=== PATIENT | female | born 1980 | race African-American/Black ===

== ENCOUNTER 2019-02-13 12:11 | Emergency (ER) | payer OTHER ==
[~2019-02-13] VITALS: Ht 177.8 cm; Wt 65.8 kg
--- OUTSIDE RECORDS SUMMARY | ~2019-02-13 | XMS | Encounter Summary ---
Demographics + + + | Address | [address] | | | [place] [address] | + + + | Home Phone | | + + + | Preferred Language | Unknown | + + + | Marital Status | | + + + | Jew Affiliation | Unknown | + + + | Race | White | + + + | Ethnic Group | Not or | + + + Author + + + | Author | [facility] | + + + | Organization | [facility] | + + + | Address | Unknown | + + + | Phone | Unavailable | + + + Support + + +---------+ + | Name | Relationship | Address | Phone | + + +---------+ + | Mick Brandon | ECON | Unknown | | + + +---------+ + Care Team Providers + +------+ + | Care Technical Proposal Writer Name | Role | Phone | + +------+ + | Xiomara Gloria | PCP | Unavailable | + +------+ + Encounter Details +--------+ + + + + | Date | Type | Department | Care Team | Description | +--------+ + + + + | 11/10/ | Document-Sc | Health Information | Unknown . | | | 2014 | anned | Services [address] | | | | | | [address] | | | | | | Road Mailcode: | | | | | | [address] | | | | | | [facility] | | | | | | [place], [place] | | | | | | [address] | | | | | | [phone] | | | +--------+ + + + + Social History + +-------+ +--------+------+ | Tobacco Use | Types | Packs/Day | Years | Date | | | | | Used | | + +-------+ +--------+------+ | Never Smoker | | | | | + +-------+ +--------+------+ + +---+---+---+ | Smokeless Tobacco: | | | | | Never Used | | | | + +---+---+---+ + + +---------+ + | Alcohol Use | Drinks/Week | oz/Week | Comments | + + +---------+ + | No | | | | + + +---------+ + + + + | Sex Assigned at | Date Recorded | | | | + + + | Not on file | | + + + + + + + | Job Start Date | Occupation | Industry | + + + + | Not on file | Not on file | Not on file | + + + + + + + + | Travel History | Travel Start | Travel End | + + + + + + | No recent travel history available. | + + documented as of this encounter Plan of Treatment Not on filedocumented as of this encounter Procedures + +--------+ + + + | Procedure Name | Priori | Date/Time | Associated Diagnosis | Comments | | | ty | | | | + +--------+ + + + | RADIOLOGY | | 11/10/2014 | | Results for this | | | | 12:00 AM | | procedure are in the | | | | PST | | results section. | + +--------+ + + + documented in this encounter Results RADIOLOGY (11/10/2014 12:00 AM PST) + + + | Narrative | Performed At | + + + | | | + + + documented in this encounter Visit Diagnoses Not on filedocumented in this encounter"
--- OUTSIDE RECORDS SUMMARY | ~2019-02-13 | XMS | Encounter Summary ---
Demographics + + + | Address | [address] | | | [place] [address] | + + + | Home Phone | | + + + | Preferred Language | Unknown | + + + | Marital Status | | + + + | Holiness Affiliation | Unknown | + + + | Race | White | + + + | Ethnic Group | Not or | + + + Author + + + | Author | [facility] | + + + | Organization | [facility] | + + + | Address | Unknown | + + + | Phone | Unavailable | + + + Support + + +---------+ + | Name | Relationship | Address | Phone | + + +---------+ + | Mick Brandon | ECON | Unknown | | + + +---------+ + Care Team Providers + +------+ + | Care Accounting System Expert Name | Role | Phone | + +------+ + | Gómez Chen MD | PCP | Unavailable | + +------+ + Encounter Details +--------+ + + + + | Date | Type | Department | Care Team | Description | +--------+ + + + + | 05/10/ | Document-Sc | UNKNOWN DEPARTMENT | Unknown . | | | 2011 | anned | [address] | | | | | | [facility] | | | | | | [place], [place] | | | | | | [address] | | | +--------+ + + + [...] + + + | RADIOLOGY | | 05/10/2012 | | Results for this | | | | 12:00 AM | | procedure are in the | | | | PDT | | results section. | + +--------+ + + + documented in this encounter Results RADIOLOGY (05/10/2012 12:00 AM PDT) + + + | Narrative | Performed At | + + + | | | + + + + + | Transcriptions | + + | Ameena Marion - 05/11/2012 1:38 PM PDT | + + documented in this encounter Visit Diagnoses Not on filedocumented in this encounter"
--- OUTSIDE RECORDS SUMMARY | ~2019-02-13 | XMS | Clinical Summary ---
Demographics + + + | Address | [address] | | | [place] [address] | + + + | Home Phone | | + + + | Preferred Language | Unknown | + + + | Marital Status | | + + + | Church Affiliation | Unknown | + + + | Race | Unknown | + + + | Ethnic Group | Unknown | + + + Author + + + | Author | [facility] | + + + | Organization | [facility] | + + + | Address | Unknown | + + + | Phone | Unavailable | + + + Support + + +---------+ + | Name | Relationship | Address | Phone | + + +---------+ + | Mick Yuan | ECON | Unknown | | + + +---------+ + Care Team Providers + +------+ + | Care Order Caller Name | Role | Phone | + +------+ + PP | Unavailable | + +------+ + Allergies + + + + + + | Active Allergy | Reactions | Severity | Noted | Comments | | | | | Date | | + + + + + + | Sulfamethoxazole-Tri | Hives, Rash | High | 10/12/19 | | | methoprim | | | 16 | | + + + + + + | Sulfa Antibiotics | Other (See Comments) | Medium | 10/12/19 | Unknown | | | | | 16 | | + + + + + + Current Medications + + +-------+---------+------+------+-------+ | Prescription | Sig. | Disp. | Refills | Star | End | Statu | | | | | | t | Date | s | | | | | | Date | | | + + +-------+---------+------+------+-------+ | | Take 1 tablet by | | | | | Activ | | fexofenadine-pseudoe | mouth 2 (two) times | | | | | e | | phedrine (AUSTIN-D) | daily. | | | | | | | 60-120 MG per | | | | | | | | tablet | | | | | | | + + +-------+---------+------+------+-------+ | budesonide | Take 3 mg by mouth | | | | | Activ | | (ENTOCORT EC) 3 MG | daily. | | | | | e | | 24 hr capsule | | | | | | | + + +-------+---------+------+------+-------+ | fluticasone | 1 spray by Each Nare | | | | | Activ | | (FLONASE) 50 MCG/ACT | route daily. | | | | | e | | nasal | | | | | | | + + +-------+---------+------+------+-------+ | multivitamin | Take 1 tablet by | | | | | Activ | | (AQUADEKS) chewable | mouth daily with | | | | | e | | tablet | breakfast. | | | | | | + + +-------+---------+------+------+-------+ | omeprazole | Take 20 mg by mouth | | | | | Activ | | (PRILOSEC) 20 MG | every morning before | | | | | e | | capsule | breakfast. | | | | | | + + +-------+---------+------+------+-------+ | Probiotic Product | Take by mouth | | | | | Activ | | (PROBIOTIC PO) | daily. | | | | | e | + + +-------+---------+------+------+-------+ Active Problems + + + | Problem | Noted Date | + + + | Acute lymphadenitis of lower limb | 10/16/2015 | + + + Family History + + + + + | Medical History | Relation | Name | Comments | + + + + + | Cancer | Maternal | | Melanoma of the skin | | | Grandmoth | | | | | er | | | + + + + + | Cancer | Mother | | | + + + + + | Cancer | Other | Maternal | | | | | Great | | | | | Grandmot | | | | | h | | + + + + + + + +--------+ + | Relation | Name | Status | Comments | + + +--------+ + | Maternal Grandmother | | | | + + +--------+ + | Mother | | | | + + +--------+ + | Other | Maternal | Alive | | | | Great | | | | | Grandmoth | | | + + +--------+ + Social History + +-------+ +--------+------+ | Tobacco Use | Types | Packs/Day | Years | Date | | | | | Used | | + +-------+ +--------+------+ | Never Smoker | | | | | + +-------+ +--------+------+ + + +---------+ + | Alcohol Use | Drinks/We | oz/Week | Comments | | | ek | | | + + +---------+ + | Yes | | | | + + +---------+ + + + + | Sex Assigned at | Date Recorded | | | | + + + | Not on file | | + + + Last Filed Vital Signs + + + + | Vital Sign | Reading | Time Taken | + + + + | Blood Pressure | 114/74 | 11/15/2015 3:31 PM PST | + + + + | Pulse | 69 | 11/15/2015 3:31 PM PST | + + + + | Temperature | 37.3 C (99.2 F) | 11/15/2015 3:31 PM PST | + + + + | Respiratory Rate | 16 | 11/15/2015 3:31 PM PST | + + + + | Oxygen Saturation | 100% | 11/15/2015 3:31 PM PST | + + + + | Inhaled Oxygen | - | - | | Concentration | | | + + + + | Weight | 67.9 kg (149 lb 9.6 | 11/15/2015 3:31 PM PST | | | oz) | | + + + + | Height | - | - | + + + + | Body Mass Index | - | - | + + + + Plan of Treatment + + + + + | Health Maintenance | Due Date | Last Done | Comments | + + + + + | Vaccine: | 03/12/ | | | | Dtap/Tdap/Td (1 - | 1 | | | | Tdap) | | | | + + + + + | Cervical Cancer | | | | | Screening (Pap) | 2 | | | + + + + + | Vaccine: Influenza | | | | | (Season Ended) | 9 | | | + + + + + Results Not on filefrom Last 3 Months Insurance + +--------+ +------+-------+---------+ | Payer | Benefi | Subscriber | Type | Phone | Address | | | t Plan | ID | | | | | | / | | | | | | | Group | | | | | + +--------+ +------+-------+---------+ | [employer] | ODS | [id number] | | | | | | HEALTH | | | | | | | PLAN | | | | | + +--------+ +------+-------+---------+ + +--------+ +--------+ + + | Guarantor Name | Accoun | Relation to | Date | Phone | Billing Address | | | t Type | Patient | of | | | | | | | | | | + +--------+ +--------+ + + | LATA YUAN | Person | 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
--- OUTSIDE RECORDS SUMMARY | ~2019-02-13 | XMS | Clinical Summary ---
Demographics + + + | Address | [address] | | | [place] [address] | + + + | Home Phone | | + + + | Preferred Language | Unknown | + + + | Marital Status | | + + + | Mandaeism Affiliation | Unknown | + + + [...] Team Providers + +------+ + | Care Stucco Mason Name | Role | Phone | + +------+ + | Xiomara lGoria | PP | Unavailable | + +------+ + Source Comments HUY is fully live on both [facility] and [facility] Allergies + + + + + + [...] | 04/22 | | Activ | | (JUAN NUNES,) 4 mg | directions. | Package | [...] recent travel history available. | + + Last Filed Vital Signs + [...] | + + + + + | Influenza (Flu) | | | | | vaccination (Season | 9 | | | | Ended) | | | | + + + + + Results Not on filefrom Last 3 Months Insurance +-------+--------+ +--------+ + +------+ | Payer | Benefi | Subscriber | Effect | Phone | Address | Type | | | t Plan | ID | carley | | | | | | / | | Dates | | | | | | Group | | | | | | +-------+--------+ +--------+ + +------+ | MODA | MODA | xxxxxxxxx | | [phone] | [address] | P[address] | | | [place] | | [phone] | | | | | | esent | | [place], | | | | | | | | [place] [address] | | +-------+--------+ +--------+ + +------+ + +--------+ +--------+ + + | Guarantor Name | Accoun | Relation to | Date | Phone | Billing Address | | | t Type | Patient | of | | | | | | | | | | + +--------+ +--------+ + + | Lata Brandon | Person | Self | [birth year] | [birth year] | | | al/Terry | | 1980 | [phone] | [place] [address] | | | ajmes | | | 4 (Home) | | + +--------+ +--------+ + +
--- OUTSIDE RECORDS SUMMARY | ~2019-02-13 | XMS | Encounter Summary ---
Demographics + + + | Address | [address] | | | [place] [address] | + + + | Home Phone | | + + + | Preferred Language | Unknown | + + + | Marital Status | | + + + | Scientology Affiliation | Unknown | + + + | Race | White | + + + | Ethnic Group | Not or | + + + Author + + + | Author | [facility] | + + + | Organization | [facility] | + + + | Address | Unknown | + + + | Phone | Unavailable | + + + Support + + +---------+ + | Name | Relationship | Address | Phone | + + +---------+ + | Mick Brandon | ECON | Unknown | | + + +---------+ + Care Team Providers + +------+ + | Care Blender Snuff Name | Role | Phone | + +------+ + | Xiomara Gloria | PCP | Unavailable | + +------+ + Encounter Details +--------+ + + + + | Date | Type | Department | Care Team | Description | +--------+ + + + + | 10/03/ | Document-Sc | Health Information | Unknown . | | | 2014 | anned | Services [address] | | | | | | [address] | | | | | | Road Mailcode: | | | | | | [address] | | | | | | [facility] | | | | | | [place], [place] | | | | | | [address] | | | | | | [phone] | | | +--------+ + + + [...] + + + | RADIOLOGY | | 10/03/2014 | | Results for this | | | | 12:00 AM | | procedure are in the | | | | PST | | results section. | + +--------+ + + + documented in this encounter Results RADIOLOGY (10/03/2014 12:00 AM PST) + + + | Narrative | Performed At | + + + | | | + + + documented in this encounter Visit Diagnoses Not on filedocumented in this encounter"
--- OUTSIDE RECORDS SUMMARY | ~2019-02-13 | XMS | Clinical Summary ---
Demographics + + + | Address | [address] | | | [place] [address] | + + + | Home Phone | | + + + | Preferred Language | Unknown | + + + | Marital Status | | + + + | Adventism Affiliation | Unknown | + + + [...] Team Providers + +------+ + | Care Multi Sensor Operator Name | Role | Phone | + +------+ + | Xiomara Gloria | PP | Unavailable | + +------+ + Source Comments HUY is fully live on both [facility] and [facility] Allergies + + + + + + [...] MODA | MODA | xxxxxxxxx | | [phone] | [address] | [address] | | | [place] | | [address] | [phone] | | | | | | esent | | [place], | | | | | | | | [place] [address] | | +-------+--------+ +--------+ + +------+ + [...] | 1980 | [phone] | [place] [address] | | | james | | | 4 (Home) | | + +--------+ +--------+ + +
--- OUTSIDE RECORDS SUMMARY | ~2019-02-13 | XMS | Encounter Summary ---
Demographics + + + | Address | [address] | | | [place] [address] | + + + | Home Phone | | + + + | Preferred Language | Unknown | + + + | Marital Status | | + + + | Samaritan Affiliation | Unknown | + + + | Race | White | + + + | Ethnic Group | Not or | + + + Author + + + | Author | [facility] | + + + | Organization | [facility] | + + + | Address | Unknown | + + + | Phone | Unavailable | + + + Support + + +---------+ + | Name | Relationship | Address | Phone | + + +---------+ + | Mick Brandon | ECON | Unknown | | + + +---------+ + Care Team Providers + +------+ + | Care Rn Procedure Name | Role | Phone | + +------+ + | Xiomara Gloria | PCP | Unavailable | + +------+ + Encounter Details +--------+ + + + + | Date | Type | Department | Care Team | Description | +--------+ + + + + | 01/26/ | Document-Sc | Health Information | Unknown . | | | 2007 | anned | Services [address] | | | | | | [address] | | | | | | Road Mailcode: | | | | | | [address] | | | | | | [facility] | | | | | | [place], [place] | | | | | | [address] | | | | | | [phone] | | | +--------+ + + + [...]
--- OUTSIDE RECORDS SUMMARY | ~2019-02-13 | XMS | Encounter Summary ---
Demographics + + + | Address | [address] | | | [place] [address] | + + + | Home Phone | | + + + | Preferred Language | Unknown | + + + | Marital Status | | + + + | Oriental Orthodox Affiliation | Unknown | + + + | Race | White | + + + | Ethnic Group | Not or | + + + Author + + + | Author | [facility] | + + + | Organization | [facility] | + + + | Address | Unknown | + + + | Phone | Unavailable | + + + Support + + +---------+ + | Name | Relationship | Address | Phone | + + +---------+ + | Mick Brandon | ECON | Unknown | | + + +---------+ + Care Team Providers + +------+ + | Care Classer Name | Role | Phone | + [...] Mailcode: | | | | | | [address] | | | | | | [facility] | | | | | | [place], [place] | | | | | | [address] | | | | | | [phone] | | | +--------+ + + + [...]
--- OUTSIDE RECORDS SUMMARY | ~2019-02-13 | XMS | Encounter Summary ---
Demographics + + + | Address | [address] | | | [place] [address] | + + + | Home Phone | | + + + | Preferred Language | Unknown | + + + | Marital Status | | + + + | Buddhist Affiliation | Unknown | + + + | Race | White | + + + | Ethnic Group | Not or | + + + Author + + + | Author | [facility] | + + + | Organization | [facility] | + + + | Address | Unknown | + + + | Phone | Unavailable | + + + Support + + +---------+ + | Name | Relationship | Address | Phone | + + +---------+ + | Mick Brandon | ECON | Unknown | | + + +---------+ + Care Team Providers + +------+ + | Care Stock Clerk Name | Role | Phone | + +------+ + | Xiomara Gloria | PCP | Unavailable | + +------+ + Reason for Visit + + + | Reason | Comments | + + + | Referral To | | | Gastroenterology | | + + + Encounter Details +--------+ + + + + | Date | Type | Department | Care Team | Description | +--------+ + + + + | 10/03/ | Abstract | Digestive Health | Clinic, | Referral To | | 2016 | | [facility] at [facility] [address] | Gastroenterology | Gastroenterology | | | | [place] | | | | | | Mailcode: [facility] | | [facility] | | | | | [facility], [address] | | | | | | [place], [place] | | | | | | [address] | | | | | | [phone] | | | +--------+ + + + [...] filedocumented as of this encounter Visit Diagnoses Not on filedocumented in this encounter"
--- OUTSIDE RECORDS SUMMARY | ~2019-02-13 | XMS | Encounter Summary ---
Demographics + + + | Address | [address] | | | [place] [address] | + + + | Home Phone | | + + + | Preferred Language | Unknown | + + + | Marital Status | | + + + | Jew Affiliation | Unknown | + + + | Race | White | + + + | Ethnic Group | Not or | + + + Author + + + | Author | [facility] | + + + | Organization | [facility] | + + + | Address | Unknown | + + + | Phone | Unavailable | + + + Support + + +---------+ + | Name | Relationship | Address | Phone | + + +---------+ + | Mick Brandon | ECON | Unknown | | + + +---------+ + Care Team Providers + +------+ + | Care Inspector Floor Sub Assembly Name | Role | Phone | + [...] | | | Sialolithias | Emilia | [address] | | | | | is | Health ENT | [facility] | | | | | | [address] [place], | | | | | | [address] | [place] | | | | | | [address], | [address] | | | | | | [place] [address] | Phone: | | | | | | Phone: | [phone] | | | | | | [phone] | Fax: | | | | | | Fax: | [phone] | | | | | | [phone] | | +--------+--------+ + + + + Encounter Details +--------+---------+ + + + | Date | Type | Department | Care Team | Description | +--------+---------+ + + + | 05/11/ | Office | Otolaryngology | Bebeto Hernandes, | Left facial swelling | | 2011 | Visit | Head and Neck | MD Vishal Rucker | (Primary Dx) | | | | Surgery Services at | [facility] | | | | | [address] | [place], [place] | | | | | [facility] | [address] | | | | | Mailcode: [address] | [phone] | | | | | [facility] | | | | | | [place], [place] | | | | | | [address] | | | | | | [phone] | | | +--------+---------+ + + + [...] when an episode exists, pt was miranda thayer script, if needed RTO PRN documented in this encounter Plan of Treatment Not on filedocumented as of this encounter Visit Diagnoses + + | Diagnosis | + + | Left facial swelling - Primary Swelling, mass, or lump in head and neck | + + documented in this encounter
--- OUTSIDE RECORDS SUMMARY | ~2019-02-13 | XMS ---
Demographics + + + | Address | [address] | | | [place] [address] | + + + | Preferred Language | Unknown | + + + | Marital Status | Unknown | + + + | Restorationist Affiliation | Unknown | + + + | Race | Unknown | + + + | Ethnic Group | Unknown | + + + Author + + + | Author | [facility] | + + + | Organization | [facility] | + + + | Address | [address] | | | [place] [address] | + + + | Phone | | + + + Care Team Providers + + + + | Care Instructional Assistant Name | Role | Phone | + + + + Unavailable | Unavailable | + + + + PROBLEMS + + + + + + + + | Type | Condition | ICD9-CM | [id number] | Onset | Condition | SNOMED | | | | Code | Code | Dates | Status | Code | + + + + + + + + | Problem | Lumbosacra | 724.4 | | | Active | [id number] | | | l neuritis | | | | | | | | NOS | | | | | | + + + + + + + + | Assessment | Myositis | | M60.9 | 11 January, | Active | [id number] | | | | | | 2016 | | | + + + + + + + + | Assessment | Occipital | R51 | | 11 January, | Active | [id number] | | | headache | | | 2016 | | | + + + + + + + + ALLERGIES + + + + +--------+ | Substance | Reaction | Event Type | Date | Status | + + + + +--------+ | Sulfa | Unknown | Drug Allergy | January, | Active | + + + + +--------+ SOCIAL HISTORY No smoking Hx information available PLAN OF CARE VITAL SIGNS + + + + | Height | 70 in | 2017-01-29 | + + + + | Weight | 157.6 lbs | 2017-01-29 | + + + + | BMI | 22.61 kg/m2 | 2017-01-29 | + + + + | Temperature | 98.6 degrees Fahrenheit | 2017-01-29 | + + + + | Heart Rate | 76 /min | 2017-01-29 | + + + + | Blood pressure systolic | 117 mm Hg | 2017-01-29 | + + + + | Blood pressure diastolic | 79 mm Hg | 2017-01-29 | + + + + MEDICATIONS + + + + + + + +--------+ | Medicati | Instruct | Dosage | Frequenc | Start | End Date | Duration | Status | | on | ions | | y | Date | | | | + + + + + + + +--------+ | Flexeril | Orally | 1 tablet | 8h | 11 January, | 08 February, | 10 days | Active | | 10 MG | Three | | | 2016 | 2016 | | | | | times a | | | | | | | | | day | | | | | | | + + + + + + + +--------+ | Tylenol/ | Orally | 1or 2 | | 11 January, | 18 January, | 1 week | Active | | Codeine | every 6 | tablet | | 2016 | 2016 | | | | #3 | hrsprn | as | | | | | | | 300-30 | pain | needed | | | | | | | MG | | | | | | | | + + + + + + + +--------+ | Mirena | | as | | | | | Active | | 20 | | directed | | | | | | | MCG/24HR | | | | | | | | + + + + + + + +--------+ | Sallie- | Orally | 1 tablet | 24h | | | | Active | | D 24 | Once a | | | | | | | | Hour | day | | | | | | | | 180-240 | | | | | | | | | MG | | | | | | | | + + + + + + + +--------+ | Omeprazo | Orally | 1 | 24h | | | | Active | | le 20 MG | Once a | capsule | | | | | | | | day | | | | | | | + + + + + + + +--------+ RESULTS No Results PROCEDURES + + + + + | Procedure | Date Ordered | Related Diagnosis | Body Site | + + + + + | Est Level III | January 29, 2017 | | | | Intermediate | | | | + + + + + IMMUNIZATIONS No Known Immunizations"
--- OUTSIDE RECORDS SUMMARY | ~2019-02-13 | XMS | Encounter Summary ---
Demographics + + + | Address | [address] | | | [place] [address] | + + + | Home Phone | | + + + | Preferred Language | Unknown | + + + | Marital Status | | + + + | Sabianism Affiliation | Unknown | + + + | Race | White | + + + | Ethnic Group | Not or | + + + Author + + + | Author | [facility] | + + + | Organization | [facility] | + + + | Address | Unknown | + + + | Phone | Unavailable | + + + Support + + +---------+ + | Name | Relationship | Address | Phone | + + +---------+ + | Mick Brandon | ECON | Unknown | | + + +---------+ + Care Team Providers + +------+ + | Care Student Support Advisor Name | Role | Phone | + +------+ + | Xiomara Gloria | PCP | Unavailable | + +------+ + Encounter Details +--------+ + + + + | Date | Type | Department | Care Team | Description | +--------+ + + + + | 02/28/ | Document-Sc | Health Information | Unknown . | | | 2014 | anned | Services [address] | | | | | | [address] | | | | | | Road Mailcode: | | | | | | [address] | | | | | | [facility] | | | | | | [place], [place] | | | | | | [address] | | | | | | [phone] | | | +--------+ + + + [...] + + + | RADIOLOGY | | 02/28/2015 | | Results for this | | | | 12:00 AM | | procedure are in the | | | | PDT | | results section. | + +--------+ + + + documented in this encounter Results RADIOLOGY (02/28/2015 12:00 AM PDT) + + + | Narrative | Performed At | + + + | | | + + + documented in this encounter Visit Diagnoses Not on filedocumented in this encounter"
--- OUTSIDE RECORDS SUMMARY | ~2019-02-13 | XMS | Clinical Summary ---
Demographics + + + | Address | [address] | | | [place] [address] | + + + | Home Phone | | + + + | Preferred Language | Unknown | + + + | Marital Status | | + + + | Orthodoxy Affiliation | Unknown | + + + | Race | Unknown | + + + | Ethnic Group | Unknown | + + + Author + + + | Author | [facility] | + + + | Organization | [facility] | + + + | Address | Unknown | + + + | Phone | Unavailable | + + + Support + + +---------+ + | Name | Relationship | Address | Phone | + + +---------+ + | Mick Yuan | ECON | Unknown | | + + +---------+ + Care Team Providers + +------+ + | Care Leaf Coverer Name | Role | Phone | + [...] | [employer] | ODS | [id number] | | | | | | HEALTH [...] | | al/Fam | | 1979 | [phone] | [place] | | | james | | | [address]: | [address] | | | | | | | | | | | | | [phone] | | | | | | | 9837 | | + +--------+ +--------+ + +"
--- OUTSIDE RECORDS SUMMARY | ~2019-02-13 | XMS | Encounter Summary ---
Demographics + + + | Address | [address] | | | [place] [address] | + + + | Home Phone | | + + + | Preferred Language | Unknown | + + + | Marital Status | | + + + | Zoroastrianism Affiliation | Unknown | + + + | Race | White | + + + | Ethnic Group | Not or | + + + Author + + + | Author | [facility] | + + + | Organization | [facility] | + + + | Address | Unknown | + + + | Phone | Unavailable | + + + Support + + +---------+ + | Name | Relationship | Address | Phone | + + +---------+ + | Mick Brandon | ECON | Unknown | | + + +---------+ + Care Team Providers + +------+ + | Care Independent Marketing Consultant Name | Role | Phone | + +------+ + | Xiomara Gloria | PCP | Unavailable | + +------+ + Encounter Details +--------+ + + + + | Date | Type | Department | Care Team | Description | +--------+ + + + + | 09/29/ | Document-Sc | Health Information | Unknown . | | | 2015 | anned | Services [address] | | | | | | [address] | | | | | | Road Mailcode: | | | | | | [address] | | | | | | [facility] | | | | | | [place], [place] | | | | | | [address] | | | | | | [phone] | | | +--------+ + + + [...] + + + | RADIOLOGY | | 09/29/2015 | | Results for this | | | | 12:00 AM | | procedure are in the | | | | PST | | results section. | + +--------+ + + + documented in this encounter Results RADIOLOGY (09/29/2015 12:00 AM PST) + + + | Narrative | Performed At | + + + | | | + + + documented in this encounter Visit Diagnoses Not on filedocumented in this encounter"
--- OUTSIDE RECORDS SUMMARY | ~2019-02-13 | XMS | Encounter Summary ---
Demographics + + + | Address | [address] | | | [place] [address] | + + + | Home Phone | | + + + | Preferred Language | Unknown | + + + | Marital Status | | + + + | Pentecostal Affiliation | Unknown | + + + | Race | White | + + + | Ethnic Group | Not or | + + + Author + + + | Author | [facility] | + + + | Organization | [facility] | + + + | Address | Unknown | + + + | Phone | Unavailable | + + + Support + + +---------+ + | Name | Relationship | Address | Phone | + + +---------+ + | Mick Brandon | ECON | Unknown | | + + +---------+ + Care Team Providers + +------+ + | Care Certified Legal Investigator Name | Role | Phone | + +------+ + | Gómez Chen MD | PCP | Unavailable | + +------+ + Reason for Visit +--------+ + | Reason | Comments | +--------+ + | Other | | +--------+ + Encounter Details +--------+ + + + + | Date | Type | Department | Care Team | Description | +--------+ + + + + | 09/29/ | Emergency | [facility] Emergency | | | | 2015 | | Department [address] | | | | | [address] | | | | | | [facility] | | | | | | [place] [address] | | | | | | [phone] | | | +--------+ + + + [...] + + documented as of this encounter Medications at Time of Discharge + + + +---------+ + + | Medication | Sig | Dispensed | Refills | Start | End Date | | | | | | Date | | + + + +---------+ + + | B INFANTIS/B ANI/B | Take by mouth. | | 0 | | | | ALBERTO/B BIFID | | | | | | | (PROBIOTIC 4X ORAL) | | | | | | + + + +---------+ + + | fexofenadine | Take 60 mg by mouth | | 0 | | | | (AUSTIN) 60 mg Oral | two times daily. | | | | | | Tablet | | | | | | + + + +---------+ + + | methylPREDNISolone | Follow package | 1 | 1 | 05/11/20 | | | (JUAN NUNES) 4 mg | directions. | Package | | 12 | | | Oral Tablets, Dose | | | | | | | Pack | | | | | | + + + +---------+ + + | PSEUDOEPHEDRINE | Take by mouth. | | 0 | | | | HCL (SUDAFED 12 HOUR | | | | | | | ORAL) | | | | | | + + + +---------+ + + documented as of this encounter Plan of Treatment Not on filedocumented as of this encounter Visit Diagnoses Not on filedocumented in this encounter"
--- OUTSIDE RECORDS SUMMARY | ~2019-02-13 | XMS | Encounter Summary ---
Demographics + + + | Address | [address] | | | [place] [address] | + + + | Home Phone | | + + + | Preferred Language | Unknown | + + + | Marital Status | | + + + | Pentecostalism Affiliation | Unknown | + + + | Race | White | + + + | Ethnic Group | Not or | + + + Author + + + | Author | [facility] | + + + | Organization | [facility] | + + + | Address | Unknown | + + + | Phone | Unavailable | + + + Support + + +---------+ + | Name | Relationship | Address | Phone | + + +---------+ + | Mick Brandon | ECON | Unknown | | + + +---------+ + Care Team Providers + +------+ + | Care Speeder Hand Name | Role | Phone | + [...] | | 2016 | | Center at [facility] [address] | Gastroenterology | Gastroenterology | | | | [place] | | | | | | Mailcode: [facility] | | | [facility] | | | | | [facility], [address] | | | | | | [place], [place] | | | | | | [address] | | | | | | [phone] | | | +--------+ + + + [...]
--- OUTSIDE RECORDS SUMMARY | ~2019-02-13 | XMS | Clinical Summary ---
Demographics + + + | Address | [address] | | | [place] [address] | + + + | Home Phone | | + + + | Preferred Language | Unknown | + + + | Marital Status | | + + + | Yarsani Affiliation | Unknown | + + + | Race | Unknown | + + + | Ethnic Group | Unknown | + + + Author + + + | Author | [facility] | | | and [place] | + + + | Organization | [facility] | | | and [place] | [...] Team Providers + +------+ + | Care Ski Top Trimmer Name | Role | Phone | + +------+ + | Xiomara Gloria PA-C | PP | | + +------+ + Allergies + + + + + + | Active Allergy | Reactions | Severity | Noted | Comments | | | | | Date | | + + + + + + | Sulfamethoxazole-Tri | Rash | Low | 11/01/19 | | | methoprim | | | 15 | | + + + + + [...] Noted Date | + + + | Dysphagia, unspecified(787.20) | 11/24/2014 | + + + + + | Overview: ICD-10 Record update | + + + + + | GERD (gastroesophageal reflux disease) | 11/24/2014 | + + + | Abdominal bloating | 11/24/2014 | + + + Family History + + +------+ + | Medical History | Relation | Name | Comments | + + +------+ + | Breast cancer | Maternal | | | | | Grandmoth | | | | | er | | | + + +------+ + | Multiple sclerosis | Mother | | | + + +------+ + + +------+--------+ + | Relation | Name | Status | Comments | + +------+--------+ + | Father | | Other | adopted | + +------+--------+ + | Maternal Grandmother | | | | + +------+--------+ + | Mother | | Alive | | + +------+--------+ + Social History + +-------+ +--------+------+ | [...] | | + + +---------+ + | No [...] | Blood Pressure | 110/70 | 12/11/2014 0902 PDT | + + + + | Pulse | 67 | 12/11/2014901 PDT | + + + + | Temperature | 36.9 C (98.4 F) | 12/11/2014901 PDT | + + + + | Respiratory Rate | 16 | 12/11/2014901 PDT | + + + + | Oxygen Saturation | 99% | 12/11/2014901 PDT | + + + + | Inhaled Oxygen | - | - | | Concentration | | | + + + + | Weight | 68.5 kg (151 lb) | 12/11/2014901 PDT | + + + + | Height | 177.8 cm (5' 10") | 11/27/2014737 PDT | + + + + | Body Mass Index | 21.67 | 11/27/2014737 PDT | + + + + Plan of [...] Results Not on filefrom Last 3 Months Advance Directives Patient has advance care planning documents on file. For more information, please contact:[facility] [place] [address]
--- OUTSIDE RECORDS SUMMARY | ~2019-02-13 | XMS | Encounter Summary ---
Demographics + + + | Address | [address] | | | [place] [address] | + + + | Home Phone | | + + + | Preferred Language | Unknown | + + + | Marital Status | | + + + | Episcopal Affiliation | Unknown | + + + | Race | White | + + + | Ethnic Group | Not or | + + + Author + + + | Author | [facility] | + + + | Organization | [facility] | + + + | Address | Unknown | + + + | Phone | Unavailable | + + + Support + + +---------+ + | Name | Relationship | Address | Phone | + + +---------+ + | Mick Brandon | ECON | Unknown | | + + +---------+ + Care Team Providers + +------+ + | Care Timber Buyer Name | Role | Phone | + [...] + + | 09/29/ | Emergency | [facility] Emergency | | | | 2015 | | Department [address] | | | | | [address] | | | | | | [facility] | | | | | | [place] [address] | | | | | | [phone] | | | +--------+ + + + [...]
--- OUTSIDE RECORDS SUMMARY | ~2019-02-13 | XMS | Encounter Summary ---
Demographics + + + | Address | [address] | | | [place] [address] | + + + | Home Phone | | + + + | Preferred Language | Unknown | + + + | Marital Status | | + + + | Taoism Affiliation | Unknown | + + + | Race | White | + + + | Ethnic Group | Not or | + + + Author + + + | Author | [facility] | + + + | Organization | [facility] | + + + | Address | Unknown | + + + | Phone | Unavailable | + + + Support + + +---------+ + | Name | Relationship | Address | Phone | + + +---------+ + | Mick Brandon | ECON | Unknown | | + + +---------+ + Care Team Providers + +------+ + | Care Panel Saw Operator Name | Role | Phone | [...] Mailcode: | | | | | | [address] | | | | | | [facility] | | | | | | [place], [place] | | | | | | [address] | | | | | | [phone] | | | +--------+ + + + [...]
--- OUTSIDE RECORDS SUMMARY | ~2019-02-13 | XMS | Encounter Summary ---
Demographics + + + | Address | [address] | | | [place] [address] | + + + | Home Phone | | + + + | Preferred Language | Unknown | + + + | Marital Status | | + + + | Nondenominational Affiliation | Unknown | + + + | Race | White | + + + | Ethnic Group | Not or | + + + Author + + + | Author | [facility] | + + + | Organization | [facility] | + + + | Address | Unknown | + + + | Phone | Unavailable | + + + Support + + +---------+ + | Name | Relationship | Address | Phone | + + +---------+ + | Mick Brandon | ECON | Unknown | | + + +---------+ + Care Team Providers + +------+ + | Care Chorus Dancer Name | Role | Phone | + +------+ + | Gómez Chen MD | PCP | Unavailable | + +------+ + Encounter Details +--------+ + + + + | Date | Type | Department | Care Team | Description | +--------+ + + + + | 05/10/ | Document-Sc | UNKNOWN DEPARTMENT | Unknown . | | | 2011 | anned | [address] | | | | | | [facility] | | | | | | [place], [place] | | | | | | [address] | | | +--------+ + + + [...]
--- OUTSIDE RECORDS SUMMARY | ~2019-02-13 | XMS | Clinical Summary ---
Demographics + + + | Address | [address] | | | [place] [address] | + + + | Home Phone | | + + + | Preferred Language | Unknown | + + + | Marital Status | | + + + | Worship Affiliation | Unknown | + + + | Race | Unknown | + + + | Ethnic Group | Unknown | + + + Author + + + | Author | [facility] | | | and [place] | + + + | Organization | [facility] | | | and [place] [...] Team Providers + +------+ + | Care Cement Sack Breaker Name | Role | Phone | + [...] documents on file. For more information, please contact:[facility] [place] [address]
--- OUTSIDE RECORDS SUMMARY | ~2019-02-13 | XMS | Encounter Summary ---
Demographics + + + | Address | [address] | | | [place] [address] | + + + | Home Phone [...] Team Providers + +------+ + | Care Credit Representative Name | Role | Phone | + [...] Mailcode: | | | | | | [address] | | | | | | [facility] | | | | | | [place], [place] | | | | | | [address] | | | | | | [phone] | | | +--------+ + + + [...]
--- OUTSIDE RECORDS SUMMARY | ~2019-02-13 | XMS ---
Demographics + + + | Address | [address] | | | [place] [address] | + + + | Preferred Language | Unknown | + + + | Marital Status | Unknown | + + + | Temple Affiliation | Unknown | + + + | Race | Unknown | + + + | Ethnic Group | Unknown | + + + Author + + + | Author | [facility] | + + + | Organization | [facility] | + + + | Address | 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 | | | l neuritis | | | | | | | | NOS | | | | | | +---------+ + + +--------+ + + ALLERGIES + + + + +--------+ | Substance | Reaction | Event Type | Date | Status | + + + + +--------+ | Sulfa | Unknown | Drug Allergy | Apr, | Active | + + + + +--------+ SOCIAL HISTORY Never Assessed PLAN OF CARE + +---------+ | Activity | Details | + +---------+ +---+ | | +---+ + + + | Follow Up | as scheduled with PCP Reason:null | + + + VITAL SIGNS + + + + | Height | 70 in | 2017-05-12 | + + + + | Weight | 149.8 lbs | 2017-05-12 | + + + + | BMI | 21.49 kg/m2 | 2017-05-12 | + + + + | Temperature | 98.8 degrees Fahrenheit | 2017-05-12 | + + + + | Heart Rate | 93 /min | 2017-05-12 | + + + + | Blood pressure systolic | 124 mm Hg | 2017-05-12 | + + + + | Blood pressure diastolic | 91 mm Hg | 2017-05-12 | + + + + MEDICATIONS + + + + +--------+ + +--------+ | Medicati | Instruct | Dosage | Frequenc | Start | End Date | Duration | Status | | on | ions | | y | Date | | | | + + + + +--------+ + +--------+ | Omeprazo | Orally | 1 | 24h | | | | Active | | le 20 MG | Once a | capsule | | | | | | | | day | | | | | | | + + + + +--------+ + +--------+ | Flonase | | | | | | | Active | + + + + +--------+ + +--------+ | Mirena | | as | | | | | Active | | 20 | | directed | | | | | | | MCG/24HR | | | | | | | | + + + + +--------+ + +--------+ | Sallie- | Orally | [...] | | | + + + + +--------+ + +--------+ RESULTS No Results PROCEDURES No Known procedures IMMUNIZATIONS No Known Immunizations MEDICAL (GENERAL) HISTORY + + +------+ | Type | Description | Date | + + +------+ | Medical History | Crohns disease | | + + +------+ | Medical History | seasonal allergies | | + + +------+ | Medical History | Abnormal PAP - 2005 | | + + +------+ | Medical History | reflux | | + + +------+ | Surgical History | laparoscopy with | 2002 | | | destruction of | | | | endometriosis | | + + +------+ | Surgical History | nasal surgery | 2009 | + + +------+ | Surgical History | cholecystectomy | 2010 | + + +------+ | Surgical History | lymph node resection (Left | 2014 | | | groin) with post-op | | | | infection | | + + +------+ | Hospitalization History | surgery | | + + +------+"
--- OUTSIDE RECORDS SUMMARY | ~2019-02-13 | XMS | Encounter Summary ---
Demographics + + + | Address | [address] | | | [place] [address] | + + + | Home Phone [...] + + | Author | [facility] | + + + | Organization | [facility] | + + + | Address | Unknown | + + + | Phone | Unavailable | + + + Support + + +---------+ + | Name | Relationship | Address | Phone | + + +---------+ + | Mick Brandon | ECON | Unknown | | + + +---------+ + Care Team Providers + +------+ + | Care Weaving Machine Operator Name | Role | Phone [...] | | | | | | [address] | | | | | | [facility] | | | | | | [place], [place] | | | | | | [address] | | | | | | [phone] | | | +--------+ + + + [...]
--- OUTSIDE RECORDS SUMMARY | ~2019-02-13 | XMS | Encounter Summary ---
Demographics + + + | Address | [address] | | | [place] [address] | + + + | Home Phone [...] Author | [facility] | + + + | Organization | [facility] | + + + | Address | Unknown | + + + | Phone | Unavailable | + + + Support + + +---------+ + | Name | Relationship | Address | Phone | + + +---------+ + | Mick Brandon | ECON | Unknown | | + + +---------+ + Care Team Providers + +------+ + | Care It Project Lead Name | Role | Phone | + [...] | | Sialolithias | Emilia | [address] | | | | | is | Health ENT | [facility] | | | | | | [address] [place], | | | | | | [address] | [place] | | | | | | [address] [place], | [address] | | | | | | [place] [address] | Phone: | | | | | | Phone: | [phone] | | | | | | [phone] | Fax: | | | | | | Fax: | [phone] | | | | | | [phone] | | +--------+--------+ + + + + [...] | | | Surgery Services at | [facility] | | | | | [address] | [place], [place] | | | | | [facility] | [address] | | | | | Mailcode: [address]01 | [phone] | | | | | [facility] | | | | | | [place], [place] | | | | | | [address] | | | | | | [phone] | | | +--------+---------+ + + + [...]
--- OUTSIDE RECORDS SUMMARY | ~2019-02-13 | XMS | Encounter Summary ---
Demographics + + + | Address | [address] | | | [place] [address] | + + + | Home Phone | | + + + | Preferred Language | Unknown | + + + | Marital Status | | + + + | Christianity Affiliation | Unknown | + + + | Race | White | + + + | Ethnic Group | Not or | + + + Author + + + | Author | [facility] | + + + | Organization | [facility] | + + + | Address | Unknown | + + + | Phone | Unavailable | + + + Support + + +---------+ + | Name | Relationship | Address | Phone | + + +---------+ + | Mick Brandon | ECON | Unknown | | + + +---------+ + Care Team Providers + +------+ + | Care Chemical Treatment Operator Name | Role | Phone | [...] Mailcode: | | | | | | [address] | | | | | | [facility] | | | | | | [place], [place] | | | | | | [address] | | | | | | [phone] | | | +--------+ + + + [...]
[~2019-02-13 12:11] MED LIST: ALLEGRA-D 12 HOU1 EA PO; BENTYL20 MG PO; BUDESONIDE EC3 MG PO; CARAFATE1 GM/10 ML PO; CLARITIN10 MG PO; CLINDAMYCIN HC300 MG PO; COLACE100 MG PO; DEXILANT60 MG PO; DULCOLAX5 MG; FLUTICASONE PRO16 GM NAS; KEFLEX500 MG PO; MONO-LINYAH1 EACH PO; MULTI-DAY VITA1 EACH PO; NORCO 5-325 TA1 EACH PO; ONE DAILY ESS400 MCG PO; PROBIOTIC1 EAC1 PO; SUDAFED 12-HOU120 MG PO; TRAZODONE HCL100 MG PO; UCERIS9 MG PO; ZOFRAN4 MG PO
[2019-02-13] MEDS ORDERED: TOPAMAX50 MG PO (12:43)
[2019-02-13] MEDS ORDERED: PROZAC10 MG PO (12:43)
[2019-02-13] MEDS ORDERED: FISH OIL 1,0001 EAC3 PO (12:43)
[2019-02-13] MEDS ORDERED: B-121000 MC2 PO (12:44)
[2019-02-13] MEDS ORDERED: PANTOPRAZOLE SO40 MG PO (16:37)
--- NOTE | 2019-02-15 19:12 | EKG ---
[facility] [address] [facility] [place], [place] [address] Signed Normal sinus rhythm Normal ECG No previous ECGs available Confirmed by SHABANA DIALLO MD ([id number]) on 02/15/2019 7:11:49 PM Electronically Signed By: SHABANA DIALLO MD 02/15/191911 PATIENT NAME: SOPHIA YUAN Electrocardiogram DATE OF : 84 PHYSICIAN: SHABANA DIALLO MD REPORT #: [id number] REPORT IS CONFIDENTIAL AND NOT TO BE RELEASED WITHOUT AUTHORIZATION
--- NOTE | 2019-02-15 19:12 | EKG ---
[facility] [address] [facility] [place] [address] Signed Normal sinus rhythm Nonspecific T wave abnormality Abnormal ECG Confirmed by SHABANA DIALLO MD ([id number]) on 02/15/2019 7:12:19 PM Electronically Signed By: SHABANA DIALLO MD 02/15/191911 PATIENT NAME: SOPHIA YUAN Electrocardiogram DATE OF : 84 PHYSICIAN: SHABANA DIALLO MD REPORT #: [id number] REPORT IS CONFIDENTIAL AND NOT TO BE RELEASED WITHOUT AUTHORIZATION
== END 2019-02-13 16:50 | disposition home or self-care (01) ==
LOC: ED 12:11
DX: R07.89 Other chest pain (principal); Z90.49 Acquired absence of other specified parts of digestive tract; Z88.2 Allergy status to sulfonamides; Z79.899 Other long term (current) drug therapy
CPT/HCPCS: 71045; 80053; 83735; 84484; 85025; 85379; 85610; 93005; 93010; 96374; 96375; 99285-25; J1885; J2060

== ENCOUNTER 2019-12-03 12:20 | Emergency (ER) | payer OTHER ==
[~2019-12-03] VITALS: Ht 177.8 cm; Wt 76.2 kg
[~2019-12-03 12:20] MED LIST changes: +B-121000 MC2 PO; +FISH OIL 1,0001 EAC3 PO; +PANTOPRAZOLE SO40 MG PO; +PROZAC10 MG PO; +TOPAMAX50 MG PO
[2019-12-03] MEDS ORDERED: HYDROXYZINE HCL25 MG PO (15:10)
--- NOTE | 2019-12-04 21:33 | EKG ---
[facility] [address] [facility] [place] [address] Signed Normal sinus rhythm Low voltage QRS Borderline ECG When compared with ECG of 13-FEB-2019 15:33, Nonspecific T wave abnormality, improved in Anterolateral leads Confirmed by FELIX YEN MD ([id number]) on 12/04/2019 9:33:32 PM Electronically Signed By: FELIX YEN MD 12/04/19 2133 PATIENT NAME: LISSYSOPHIA Electrocardiogram DATE OF : 84 PHYSICIAN: FELIX YEN MD REPORT #: [id number] REPORT IS CONFIDENTIAL AND NOT TO BE RELEASED WITHOUT AUTHORIZATION
== END 2019-12-03 15:30 | disposition home or self-care (01) ==
LOC: ED 12:20
DX: F41.9 Anxiety disorder, unspecified (principal); K21.9 Gastro-esophageal reflux disease without esophagitis; Z88.2 Allergy status to sulfonamides; Z79.899 Other long term (current) drug therapy
CPT/HCPCS: 71045; 80053; 84484; 85025; 85379; 93005; 93010; 99285-25

== ENCOUNTER 2020-05-13 10:29 | Emergency (ER) | payer OTHER ==
[~2020-05-13] VITALS: Ht 177.8 cm; Wt 76.2 kg
--- OUTSIDE RECORDS SUMMARY | ~2020-05-13 | XMS | Encounter Summary ---
Demographics + + + | Address | [address] | | | [place] [address] | + + + | Home Phone | | + + + | Preferred Language | Unknown | + + + | Marital Status | | + + + | Congregation Affiliation | Unknown | + + + | Race | Black or | + + + | Ethnic Group | Not or | + + + Author + + + | Author | [facility] | | | and [place] | + + + | Organization | [facility] | | | and [place] | + + + | Address | Unknown | + + + | Phone | Unavailable | + + + Care Team Providers + +------+ + | Care Oracle Soa Architect Name | Role | Phone | + +------+ + PCP | Unavailable | + +------+ + Encounter Details +--------+ + + + + | Date | Type | Department | Care Team | Description | +--------+ + + + + | 05/09/ | Hospital | [facility] | | | | 2008 - | Encounter | MED CTR MED ONC | | | | | | [address] | | | | 05/11/ | | [place] [address] | | | | 2008 | | [phone] | | | +--------+ + + + + Social History + +-------+ +--------+------+ | Tobacco Use | Types | Packs/Day | Years | Date | | | | | Used | | + +-------+ +--------+------+ | Never Assessed | | | | | + +-------+ +--------+------+ + + + | Sex Assigned at | Date Recorded | | | | + + + | Not on file | | + + + documented as of this encounter Plan of Treatment +--------+---------+ + + + | Date | Type | Specialty | Care Team | Description | +--------+---------+ + + + | 06/11/ | Office | Neurology | [place], | | | 2019 | Visit | | [address] | | [address] [place], | | | | | | [place] [address] | | | | | | [phone] | | | | | | | | +--------+---------+ + + + documented as of this encounter Visit Diagnoses Not on filedocumented in this encounter"
--- OUTSIDE RECORDS SUMMARY | ~2020-05-13 | XMS | Encounter Summary ---
Demographics + + + | Address | [address] | | | [place] [address] | + + + | Home Phone | | + + + | Preferred Language | Unknown | + + + | Marital Status | | + + + | Scientologist Affiliation | Unknown | + + + | Race | Black or | + + + | Ethnic Group | Not or | + + + Author + + + | Author | [facility] | | | and [place] | + + + | Organization | [facility] | | | and [place] | + + + | Address | Unknown | + + + | Phone | Unavailable | + + + Care Team Providers + +------+ + | Care Acquisitions Logistics Analyst Name | Role | Phone | + +------+ + | Xiomara Gloria PA-C | PCP | | + +------+ + Reason for Visit +--------+--------+ + | Reason | Onset | Comments | | | Date | | +--------+--------+ + | Other | 12/19/ | gastroparesis diet questions | | | 2014 | | +--------+--------+ + Encounter Details +--------+ + + + + | Date | Type | Department | Care Team | Description | +--------+ + + + + | 12/19/ | Telephone | [facility] | Sarika, | Other (gastroparesis | | 2014 | | GASTROENTEROLOGY | Dana, TOOL AND DIE ENGINEER [address] | diet questions) | | | | [address] | [address] | | | | | [address] [place], [place] | [place], [place] | | | | | [address] | [address] | | | | | [phone] | | | +--------+ + + + [...] + + documented as of this encounter Miscellaneous Notes Telephone Encounter - Monique Meyers RN - 12/19/2014 10:53 AM PDTSpoke with Lata. She s tates she is doing much better, still has some burping but not as bad as before starting gas troparesis diet. Patient wondering what next steps are. After reviewing Dana Baum's last office vis it I relayed recommendation and provided examples of step 3 part of diet. Patient voiced und erstanding and did not have further questions at this time. elephone Encounter - Sandrine Silveira - 12/19/2014 9:4 1 AM PDTPatient called and would like to speak to someone, she states she was put on a speci al diet and she would like information about what foods she can start adding in? Pt can be r eached at [phone]. doc umented in this encounter Plan of Treatment +--------+---------+ + + + | Date | Type | Specialty | Care Team | Description | +--------+---------+ + + + | 06/11/ | Office | Neurology | Miguelito, | | | 2019 | Visit | | MIRIAN Nino [address] [place], | | | | | | [place] [address] | | | | | | [phone] | | | | | | | | +--------+---------+ + + + documented as of this encounter Visit Diagnoses Not on filedocumented in this encounter"
--- OUTSIDE RECORDS SUMMARY | ~2020-05-13 | XMS | Encounter Summary ---
Demographics + + + | Address | [address] | | | [place] [address] | + + + | Home Phone | | + + + | Preferred Language | Unknown | + + + | Marital Status | | + + + | Zoroastrianism Affiliation | Unknown | + + + | Race | White | + + + | Ethnic Group | Not or | + + + Author + + + | Author | [facility] | + + + | Organization | [facility] | + + + | Address | Unknown | + + + | Phone | Unavailable | + + + Support + + +---------+ + | Name | Relationship | Address | Phone | + + +---------+ + | Mick Brandon | ECON | Unknown | | + + +---------+ + Care Team Providers + +------+ + | Care Community Support Professional Name | Role | Phone | + +------+ + | Gómez Chen MD | PCP | | + +------+ + Reason for Visit Consultation (Routine) +--------+--------+ + + + + | Status | Reason | Specialty | Diagnoses / | Referred By | Referred To | | | | | Procedures | Contact | Contact | +--------+--------+ + + + + | Closed | | Otolaryngolog | Diagnoses | April, | Cecilio, | | | | y | | Gómez Fox MD | MD Bebeto | | | | | Sialolithias | Emilia | [address] [facility] | | | | | is | [facility] | [facility] | | | | | | [address] [place], | | | | | | [place] | [place] | | | | | | [address], | [address] | | | | | | [place] [address] | Phone: | | | | | | Phone: | [phone] | | | | | | [phone] | Fax: | | | | | | Fax: | [phone] | | | | | | [phone] | | +--------+--------+ + + + + Encounter Details +--------+---------+ + + + | Date | Type | Department | Care Team | Description | +--------+---------+ + + + | 05/11/ | Office | Otolaryngology | Bebeto Hernandes, | Left facial swelling | | 2011 | Visit | Head and Neck | MD [address] | (Primary Dx) | | | | Surgery Services at | [facility] [address] | | | | | [address] | [place], [place] | | | | | [address] | [address] | | | | | Physician's | [phone] | | | | | Pavilion, 2nd floor | | | | | | [place], [place] | | | | | | [address] | | | | | | [phone] | | | +--------+---------+ + + + Social History + +-------+ +--------+------+ | Tobacco Use | Types | Packs/Day | Years | Date | | | | | Used | | + +-------+ +--------+------+ | Never Smoker | | | | | + +-------+ +--------+------+ + +---+---+---+ | Smokeless Tobacco: | | | | | Never Used | | | | + +---+---+---+ + + | Tobacco Cessation: Counseling Given: No | + + + + +---------+ + | Alcohol Use | Drinks/Week | oz/Week | Comments | + + +---------+ + | No | | | | + + +---------+ + + + + | Sex Assigned at | Date Recorded | | | | + + + | Not on file | | + + + documented as of this encounter Last Filed Vital Signs + + + + + | Vital Sign | Reading | Time Taken | Comments | + + + + + | Blood Pressure | 126/74 | 05/11/2012 1:38 PM | | | | | PDT | | + + + + + | Pulse | 97 | 05/11/2012 1:38 PM | | | | | PDT | | + + + + + | Temperature | - | - | | + + + + + | Respiratory Rate | - | - | | + + + + + | Oxygen Saturation | - | - | | + + + + + | Inhaled Oxygen | - | - | | | Concentration | | | | + + + + + | Weight | 77.1 kg (170 lb) | 05/11/2012 1:38 PM | | | | | PDT | | + + + + + | Height | 177.8 cm (5' 10") | 05/11/2012 1:38 PM | | | | | PDT | | + + + + + | Body Mass Index | 24.39 | 05/11/2012 1:38 PM | | | | | PDT | | + + + + + documented in this encounter Progress Notes Bebeto Hernandes MD - 05/13/2012 9:59 AM PDTFormatting of this note might be different fro m the original. Chief Complaint: : L facial submandibular swelling History of Present Illness:Ms. Brandon is a 32 y.o. female who comes in for evaluation of L facial submandibular swelling. Ms. Brandon was referred by Dr. Chen. Ms. Brandon reports th at she has been experiencing L facial swelling for about 3 months. She reports that it seem s to come and go, no association to eating, thinking of food or URI. She reports that the f irst episode occurred in the middle of the night. Sometimes the episodes resolve in 1 day an d sometimes up to 3 days. They resolve on their own. Trial of antibx has been used x 2, al though pt reports they were not affective. Usually she senses a salty taste in her mouth pr ior to the episode. She underwent a CT scan, which revealed wnl. She was not having an ep isode at that time. An FNA was performed which revealed scant acute inflammation embedded wi th fibrin. Past Medical History Diagnosis Date Chronic sinusitis Past Surgical History Procedure Date Sinus surgery 2008 Cholecystectomy 2009 Allergies Allergen Reactions Septra (Sulfamethoxazole-Trimethoprim) Current outpatient prescriptions:B INFANTIS/B ANI/B ALBERTO/B BIFID (PROBIOTIC 4X ORAL), Take by mouth. , Disp: , Rfl: fexofenadine (AUSTIN) 60 mg Oral Tablet, Take 60 mg by mouth two times daily. , Disp: , R fl: methylPREDNISolone (MEDROL, JUAN,) 4 mg Oral Tablets, Dose Pack, Follow package directions., Disp: 1 Package, Rfl: 1 PSEUDOEPHEDRINE HCL (SUDAFED 12 HOUR ORAL), Take by mouth. , Disp: , Rfl: History Social History Marital Status: Spouse Name: N/A Number of Children: N/A Years of Education: N/A Occupational History Not on file. Social History Main Topics Smoking status: Never Smoker Smokeless tobacco: Never Used Alcohol Use: No Drug Use: No Sexually Active: Not on file Other Topics Concern Not on file Social History Narrative No narrative on file FHX: non contributory Her ECOG performance status is: 0 Review of systems: See patient's filled out questionnaire. Except as noted she denies and complaints referable to the cardiac, hepatic, pulmonary, neurologic, musculoskeletal, renal or digestive systems except as noted above. Physical examination: no distress appearing female Voice: Normal BP 126/74 | Pulse 97 | Ht 1.778 m (5' 10") | Wt 77.111 kg (170 lb) | BMI 24.39 kg/(m^2) Face/Scalp: Normal facial contour and facial nerve function. No suspicious skin lesions not ed on scalp, face or neck. Eyes: Normal extraocular motions bilaterally. Pupils equal bilaterally. Vision grossly inta ct. Ears: Normal pinnae, external canals. There is bilateral cerumen impaction that was remove d with a curette to reveal a normal-appearing tympanic membranes bilaterally, Hearing grossl y intact Nose: External nose - Normal Nasal cavity - No masses, purulence, polyps Oral cavity: Dentition - Good repair Tongue mobility - normal Palate mobility - normal Mucosa - No mucosal lesions noted on hard palate, upper or lower alveolus, buccal mucosa, f garett of mouth, lips or tongue. Oropharynx: Tonsils - Normal Base of tongue - Mirror exam and Normal Mucosa - No mucosal lesions seen Larynx: Supraglottis - Mirror exam and Normal Glottis - Mirror exam, Normal and Vocal cord mobility normal Pharynx: Mirror exam and Normal Parotid glands: No masses palpable on either side. Neck: No adenopathy on either side. No thyromegaly palpable Ancillary Studies: 03/02/12: FNA: scant inflammation. No lymphoid or epithelial elements 03/25/12: CT: wnl Impression: Hx of L submandibular facial swelling. Normal clinical exam today Plan: Reviewed CT scan, wnl. Discussed clinical exam, also wnl Reviewed possible sialoendoscopy of the L parotid gland that may relieve symptoms, although difficult to assess origin of swelling as normal CT and clinical exam Discussed possible repeat CT scan when pt is experiencing episode. Pt will consider, althou gh financially may be an issue Discussed trial of steroids when pt is experiencing an episode, pt is interested and script given to pt If steroids are not effective, pt may consider a repeat CT when an episode exists, pt was miranda birch a script, if needed RTO PRN documented in this encounter Miscellaneous Notes Scan - Other, Faculty - 06/08/2012 12:18 PM PDTElectronically signed by Faculty Other at 12:18 PM PDTScan - Other, Faculty - 05/27/2012 2:53 PM PDT documented in this encounter Plan of Treatment Not on filedocumented as of this encounter Visit Diagnoses + + | Diagnosis | + + | Left facial swelling - Primary Swelling, mass, or lump in head and neck | + + documented in this encounter
--- OUTSIDE RECORDS SUMMARY | ~2020-05-13 | XMS | Encounter Summary ---
Demographics + + + | Address | [address] | | | [place] [address] | + + + | Home Phone | | + + + | Preferred Language | Unknown | + + + | Marital Status | | + + + | Voodoo Affiliation | Unknown | + + + | Race | Black or | + + + | Ethnic Group | Not or | + + + Author + + + | Author | [facility] | | | and [place] | + + + | Organization | [facility] | | | and [place] | + + + | Address | Unknown | + + + | Phone | Unavailable | + + + Care Team Providers + +------+ + | Care Silk Presser Name | Role | Phone | + +------+ + | Xiomara Gloria PA-C | PCP | | + +------+ + Reason for Referral Self-referral (Routine) +--------+ + + + + + | Status | Reason | Specialty | Diagnoses / | Referred By | Referred To | | | | | Procedures | Contact | Contact | +--------+ + + + + + | Closed | Specialty | Physical | Diagnoses | Suk[facility] | [facility] | | | Services | Therapy | Intractable | Chente Tanner, | HOSPITAL | | | Required | | migraine | MD [address] | PHYSICAL | | | | | without aura | [address] [place], | THERAPY [address] | | | | | and without | [address] [place] | [place] | | | | | status | [place], [place] | [place], [place] | | | | | migrainosus | [address] | [address] | | | | | Bilateral | Phone: | Phone: | | | | | neck pain | [phone] | [phone] | | | | | | Fax: | Fax: | | | | | | [phone] | [phone] | +--------+ + + + + + Reason for Visit + + + | Reason | Comments | + + + | Establish Care | tremor | + + + Evaluate & Treat (Routine) +--------+--------+ + + + + | Status | Reason | Specialty | Diagnoses / | Referred By | Referred To | | | | | Procedures | Contact | Contact | +--------+--------+ + + + + | Closed | | Neurology | Diagnoses | Mj, | Sukh, | | | | | Other | Thang Draper, | Chente Tanner MD | | | | | specified | [address] | | | | | forms of | Bony | [address] [place] | | | | | tremor | [address] | [place] | | | | | | [place], | [address] Phone: | | | | | | [place] [address] | [phone] | | | | | | | Fax: | | | | | | | [phone] | +--------+--------+ + + + + Encounter Details +--------+---------+ + + + | Date | Type | Department | Care Team | Description | +--------+---------+ + + + | 01/24/ | Office | [facility] | Chente Luz MD | Bilateral neck pain | | 2020 | Visit | [facility] | [address] | (Primary Dx); | | | | CLINIC [address] | [place] | Intractable migraine | | | | DR [place], | [address] | without aura and | | | | [place] [address] | | without status | | | | [phone] | | migrainosus | +--------+---------+ + + + Social History [...] +---------+ + | No | | | ocassionally | + + +---------+ + + + [...] + + + | Blood Pressure | 122/60 | 01/25/2020 10:19 AM | | | | | PDT | | + + + + + | Pulse | 79 | 01/25/2020 10:19 AM | | | | | PDT | | + + + + + | Temperature | - | - | | + + + + + | Respiratory Rate | 20 | 01/25/2020 10:19 AM | | | | | PDT | | + + + + + | Oxygen Saturation | 98% | 01/25/2020 10:19 AM | | | | | PDT | | + + + + + | Inhaled Oxygen | - | - | | | Concentration | | | | + + + + + | Weight | 78.9 kg (174 lb) | 01/25/2020 10:19 AM | | | | | PDT | | + + + + + | Height | 177.8 cm (5' 10") | 01/25/2020 10:19 AM | | | | | PDT | | + + + + + | Body Mass Index | 24.97 | 01/25/2020 10:19 AM | | | | | PDT | | + + + + + documented in this encounter Patient Instructions Patient Instructions Chente Luz MD - 01/25/2020 10:30 AM PDTFormatting of this note mi ght be different from the original. Patient Instructions [facility] Dr. Chente Luz, Neurologist Date:01/25/2020 Name:Lata Brandon :..1980 Please schedule next follow up appt with Juan in 3-4 months Migraine without aura, intractable, non status migranous Cervical spine strain due to spasms Essential Tremors You have the following tests/procedures ordered: Orders Placed This Encounter Procedures [facility] Physical Therapy, External - AMB Referral BOTOX INJECTION PAIN CLINIC PROCEDURE Treatment Option- massage, Acupuncture, Over the counter heat patches (icy hot, thermacare, salonpas) , over the counter creams (aspercream, bengay cream, emu oi l), Relaxation therapy, Water therapy, Cortisone shots, Toradol Injections Suggest reading newspapers. magazines, perform word find exercises such as cross word puzz le, and scrabble, other puzzle games like Tipping Bucketu, Food.eeng. Play computer/mobile applications such as Ryzing and [employer] Relpax 40 mg at onset of migraine and can repeat in 45 mins up to 2 per day Increase Prozac to 40 mg daily for headache prophylaxis and anxiety Taper topamax one tab per week due to mood changes Headache calendar Trial of Botox as soon as insurance approves Obtain recent MRI of brain in [place] If essential tremors worsen, advised to call and can give a trial of Pirmidone or Klonopin Any Questions please call TORIE Diggs or Dr. Luz at [facility] Preventing Migraine Headaches: Triggers Red wine is a common migraine trigger. The first step in preventing migraines is to learn what triggers them. You may then be able to control your triggers to avoid or reduce the severity of your migraines. Know your triggers Be aware that you may have more thanone trigger, and that some triggers may work together . Common migraine triggers include: Food and nutrition. Skipping meals or not drinking enough water can trigger headaches. S o can certain foods, such as caffeine, chocolate, artificial sweeteners, monosodium glutamat e (MSG),aged cheese, or sausage. Alcohol. Red wine and other alcoholic beverages are common migraine triggers. Chemicals. Scents, cleaning products, gasoline, glue, perfume, and paint can be triggers . So can tobacco smoke, including secondhand smoke. Emotions. Stress can trigger headaches or make them worse once they start. Sleep disruption. Staying up late, sleeping late, and traveling across time zones can di srupt your sleep cycle, triggering headaches. Hormones. Many women notice that migraines tend tohappen at a certain point in their m enstrual cycle. control pills or hormone replacement therapy may also trigger migraine s. Environment and weather. Air travel, changes in altitude, air pressure changes, hot sun, or bright or flashing lights can be triggers. Medicine overuse. Frequent use of pain medicines for headache pain can also cause a head ache. This may also be called rebound headache. Control your triggers These are some of the things you can do to try to control triggers: Avoid triggers if you can. For example, stay clear of alcohol and foods that trigger you r headaches. Use unscented household products. Keep regular sleep habits. Manage stress to h elp control emotional triggers. Change your behavior at times when triggers can't be avoided. For example, make sure to get enough rest and drink plenty of water while you're traveling. Make sure to carry a hat, sunglasses, and your medicines. Be alert for migraine symptoms, so you can treat a migraine early if it happens. Date Last Reviewed: 01/19/201819995187-0095 [employer]. [address] [place] [address], [place] [address]. All righ ts reserved. This information is not intended as a substitute for professional medical care. Always follow your healthcare professional's instructions. Preventing Migraine Headaches: Medicines and Lifestyle Changes Going to bed and getting up at the same time each day, including weekends, may help prevent migraines. A migraine is a type of severe headache. Having a migraine can be very painful. But there a re steps you can take to help prevent migraines. Medicines to help prevent migraines Your healthcare provider may prescribe certain medicines to help prevent migraines. Thes e medicines may need to be taken daily. Or they may only need to be taken at times when you re likely to have a migraine. Common medicines used to help prevent migraines include: ? Triptans (serotonin receptor agonists) ? Nonsteroidal anti-inflammatory drugs (such as ibuprofen, available dfso-tam-bhwckho) ? Beta-blockers ? Anticonvulsants ? Tricyclic antidepressants ? Calcium channel blockers ? Certain vitamins, minerals, and plant extracts ? Botulinum toxin injection for certain chronic migraines ? CGRP (calcitonin gene-related peptide) agnonists are being reviewed by the Food and Drug Administration (FDA) Lifestyle changes for long-term prevention Here are some suggestions: Exercise. Regular exercise can help prevent migraines and improve your health. (If exerc ise triggers your migraines, talk to your healthcare provider.) Keep regular habits. Don t skip or delay meals. Drink plenty of water. And go to bed a nd get up at about the same time each day. This includes weekends. Try alternative treatments. These are treatments that don't involve the use of medicines or surgery. They may help relieve symptoms and prevent migraines. Some treatment options in clude biofeedback and acupuncture. Ask yourhealthcare providerto tell you more about the se treatments if you have questions. Limit caffeine. You may find that caffeine helps relieve pain during an attack. But too much caffeine can also trigger migraines. So, limit the amount of caffeine you consume. Date Last Reviewed: 01/19/201819991423-9325 [employer]. [address] [place] [address], [place] [address]. All righ ts reserved. This information is not intended as a substitute for professional medical care. Always follow your healthcare professional's instructions. Neck Pain There are several possible causes of neck pain when there is no injury: You can get a minor ligament sprain or muscle strain from a sudden minor neck movement. Sleeping with your neck in an awkward position can also cause this. Some people respond to emotional stress by tensing the muscles of their neck, shoulders, and upper back. Chronic spasm in these muscles can cause neck pain and sometimes headaches. Gradualwear and tear of the joints in the spine can causedegenerative arthritis. Thi s can be a source of occasional or chronic neck pain. The spinal disks may bulge and put pressure on a nearby spinal nerve. This can happen as a natural result of aging or repeated small injuries to the neck. The spinal disks are the cushions between each spinal bone. This causes tingling, pain, or numbness that spreads from the neck to the shoulder, arm, or hand on one side. Acute neck pain usually gets better in 1 to 2 weeks. Neck pain related to disk disease, art hritis in the spinal joints, or spinal stenosis can become chronic and last for months or ye ars. Spinal stenosis is narrowing of the spinal canal. X-rays are usually not ordered for the initial evaluation of neck pain. However, X-rays may be done if you had a forceful physical injury, such as a car accident or fall. If pain cont inues and doesn t respond to medical treatment, X-rays and other tests may be done at a la ter time. Home care Rest and relax the muscles. Use a comfortable pillow that supports the head. It should a lso help keep the spine in a neutral position. The position of the head should not be tilted forward or backward. A rolled up towel may help for a custom fit. Some people find relief withheat. Heat can be applied with either a warm shower or bat h ora moist towel heated in the microwaveandmassage.Others prefercold packs. You c an make an ice pack by filling a plastic bag that seals at the top with ice cubes or crushed ice and then wrapping it with a thin towel.Try both and use the method that feels best fo r15 to20 minutes, several times a day. Whether using ice or heat, be careful that you do not injure your skin. Never put ice di rectly on the skin. Always wrap the ice in a towel or other type of cloth.This is very impor tant, especially in people with poor skin sensations. Try to reduce your stress level. Emotional stress can lead to neck muscle tension and ge t in the way of or delay the healing process. You may qjyntcy-mar-lcdfrnv pain medicineto control pain, unless another medicine wa s prescribed. If you have chronic liver or kidney disease or ever had a stomach ulcer or GI bleeding, talk with your healthcare provider beforeusing these medicines. Follow-up care Follow up with your healthcare provider if your symptoms do not show signs of improvement a fter one week. Physical therapy or further tests may be needed. If X-rays, CT scans, or MRI scans were taken, you will be told of any new findings that may affect your care. Call 911 Call 911 if you have: Suddenweakness or numbness in one or both arms Neck swelling, difficulty or painful swallowing Difficulty breathing Chest pain When to seek medical advice Call your healthcare provider right away if any of these occur: Pain becomes worse or spreads into one or both arm Increasing headache Fever of 100.4F (38C) or higher, or as directed by your healthcare provider Date Last Reviewed: 03/21/201619991086-2994 [employer]. [address] [place] [address]. All righ ts reserved. This information is not intended as a substitute for professional medical care. Always follow your healthcare professional's instructions. Understanding Neck Problems If you suffer from neck pain, you re not alone. Many people have neck pain at some point in their lives. Problems such as poor posture, injury, and wear and tear can lead to neck pa in. Your healthcare provider will work with you to find the treatment that s best for your neck. Types of neck problems The following problems can cause pain or injury in your neck: Strains and sprains. Strains (stretched or torn muscles) and sprains (stretched or torn ligaments) can cause neck pain. Strains and sprains can happen during an accident, or when y ou overuse your neck through repetitive motion. They can also cause your muscles and ligamen ts to become inflamed (swollen and painful). Whiplash and other injuries. Whiplash can result when an impact throwsyour head, forci ngyour neck too far forward, then too far backward. When combined, the two motions can cau se a painful injury to different parts of your neck, such as muscles, ligaments, or joints. The most common cause of whiplash is a car accident. But it can also happen during a fall or sports injury. Weakened disks. A simple action, such as a sneeze or a cough, can cause one of your disk s to bulge orrupture (herniate). A herniated disk can put pressure on your nerve and cause pain. Over time, disks can also thin out (degenerate). Flattened disks don t cushion vert ebrae well and can cause vertebrae to rub together. Also, there is less space for the nerves . This can pinch nerves and cause pain. Weakened joints. Aging and injury can cause joints to slowly degenerate. Thinned joints can also cause vertebrae to rub together. This can cause abnormal growths of bone (bone spur s) to form on vertebrae. Bone spurs put pressure on nerves, causing pain. Common symptoms If you have a neck problem, you may have one or more of the following symptoms: Muscle tension and spasm. You may not be able to move your neck, arms, or shoulders comf ortably if you have muscle tension or stiffness in your neck. If your symptoms aren t reli eved, you may experience muscle spasms, or knots of contracted tissue (trigger points) in ar eas of your neck and shoulders. Aches and pains. Dull aches in your head or neck, sharp pains, and swelling of the soft tissue of your neck and shoulders are common symptoms. If there s pressure on the nerves i n your neck, you may feel pain in your arms or hands. Numbness or weakness. If you injure the nerves in your neck, you may have numbness, ting ling, or weakness in your shoulders, arms, or hands. These symptoms arise when disks or bone spurs press on the nerves in your neck. Severe disease can also affect your legs. Date Last Reviewed: 06/21/201719997373-2901 [employer]. [address] [place] [address], [place] [address]. All [facility] ts reserved. This information is not intended as a substitute for professional medical care. Always follow your healthcare professional's instructions. Essential Tremor (ET) What is essential tremor? Essential tremor (ET) is a neurological disorder that causes your hands, head, trunk, voice , or legs to shake rhythmically. It is often confused with Parkinson disease. ET is the most common trembling disorder that people have. Everyone has some ET, but the mo vements usually cannot be seen or felt. When tremors are noticeable, the condition is classi fied as ET. ET is most common among people older than age 65, but it can affect people at any age. What causes ET? ET can occur in different people for different reasons: Familial essential tremor. In most people, the condition seems to be passed down from a parent to a child. If your parent has ET, there is a 50% chance that you or your children wi ll inherit the gene responsible for the condition. Essential tremor related to another disorder. Sometimes, a tremor is a symptom of anothe r neurological disorder, such as Parkinson disease or dystonia. Sometimes, ET is mistaken fo r these other diseases when they are not present. A healthcare provider s careful diagnosi s is extremely important. The cause of ET isn t known. However, one theory suggests that your cerebellum and other parts of your brain are not communicating correctly. The cerebellum is a part of the brain t hat controls muscle coordination. What are the symptoms of ET? If you have ET, you will have shaking and trembling at different times and in different sit uations, but some characteristics are common to all. Here is what you might typically experi ence: Tremors occur when you move and are less noticeable when you rest. Certain medicines, caffeine, or stress can make your tremors worse. Tremor may improve with ingestion of a small amount of alcohol (such as wine) Tremors get worse as you age. Tremors don t affect both sides of your body in the same way. Here are different signs of essential tremor: Tremors that are most obvious in your hands Difficulty doing tasks with your hands, such as writing or using tools Shaking or quivering sound in your voice Uncontrollable head-nodding In rare instances, tremors in your legs or feet How is ET diagnosed? Your rapid, uncontrollable trembling, as well as questions about your medical and family hi story, can help your healthcare provider determine if you have familial ET. He or she will p robably need to rule out other conditions that could cause shaking or trembling. For example , tremors could be symptoms of diseases, such as hyperthyroidism. Your healthcare provider m ight test you for those, as well. In some cases, the tremors might be related to other factors. To find out for certain, your healthcare provider may have you try to: Abstain from heavy alcohol use; if you re an alcoholic, trembling is a common symptom. Cut out cigarette smoking. Avoid caffeine. Avoid certain medicines How is ET treated? Propanolol and primidone are 2 medicines often prescribed to treat ET. Propanolol blocks th e stimulating action of neurotransmitters to calm your trembling. Primidone is a common anti seizure medicine that also controls the actions of neurotransmitters. Gabapentin and topiramate are 2 other antiseizure medicines that are sometimes prescribed. In some cases, tranquilizers like alprazolam or clonazepam might be suggested. For ET in your hands, botulinum toxin (Botox) injections have shown some promise in easing the trembling. They work by weakening the surrounding muscles around your hands. For severe tremors, a stimulating device (deep brain stimulator) surgically implanted in your brain may help. Can ET be prevented? The specific cause of ET is not known, so scientists are not sure how the condition can be prevented. Living with ET ET is usually not dangerous, but it can certainly be frustrating if you have to deal with i t. Certain factors can make tremors worse, so the following steps may help to decrease tremo rs: Avoid alcohol, cigarettes, and caffeine Avoid stressful situations as much as possible Use relaxation techniques, such as yoga, deep-breathing exercises, or biofeedback Check with your healthcare provider to see if any medicines you re taking could be terry ing your tremors worse. Talk with your healthcare provider about other options, such as surgery, if ET starts to af fect your quality of life. When should I call my healthcare provider? If you have been diagnosed with ET, talk with your healthcare provider about when you might need to call. He or she will likely advise you to call if your tremors become worse, or if you develop new neurologic symptoms, such as numbness or weakness. Cowart points about essential tremors ET is a neurological disorder that causes your hands, head, trunk, voice, or legs to sha ke rhythmically. The cause is not known, but it is often passed down from a parent to a chil d. ET is sometimes confused with other types of tremor, so getting the right diagnosis is i mportant. Tremors tend to be worse during movement than when at rest. The tremors are usually not dangerous, but they can get worse over time. Avoiding things that might make tremors worse, such as stress, caffeine, and certain med icines, may be helpful. Medicines can also help control or limit tremors in some people. Severe tremors can some times be treated with surgery. Next steps Tips to help you get the most from a visit to your healthcare provider: Know the reason for your visit and what you want to happen. Before your visit, write down questions you want answered. Bring someone with you to help you ask questions and remember what your provider tells y ou. At the visit, write down the name of a new diagnosis, and any new medicines, treatments, or tests. Also write down any new instructions your provider gives you. Know why a new medicine or treatment is prescribed, and how it will help you. Also know what the side effects are. Ask if your condition can be treated in other ways. Know why a test or procedure is recommended and what the results could mean. Know what to expect if you do not take the medicine or have the test or procedure. If you have a follow-up appointment, write down the date, time, and purpose for that vis it. Know how you can contact your provider if you have questions. [phone] [employer]. [address] [place] [address]. All righ ts reserved. This information is not intended as a substitute for professional medical care. Always follow your healthcare professional's instructions. OnabotulinumtoxinA injection (Medical Use) Brand Name: Botox What is this medicine? ONABOTULINUMTOXINA (o na RIRI you lye num tox in eh) is a neuro-muscular david. This medi cine is used to treat crossed eyes, eyelid spasms, severe neck muscle spasms, ankle and toe muscle spasms, and elbow, wrist, and finger muscle spasms. It is also used to treat excessiv e underarm sweating, to prevent chronic migraine headaches, and to treat loss of bladder con trol due to neurologic conditions such as multiple sclerosis or spinal cord injury. How should I use this medicine? This medicine is for injection into a muscle. It is given by a health customer care voice consultant in a hospital or clinic setting. Talk to your educational resource coordinator regarding the use of this medicine in children. While this drug m ay be prescribed for children as young as 12 years old for selected conditions, precautions do apply. What side effects may I notice from receiving this medicine? Side effects that you should report to your doctor or health customer care voice consultant as soon as p ossible: allergic reactions like skin rash, itching or hives, swelling of the face, lips, or tong ue breathing problems changes in vision chest pain or tightness eye irritation, pain fast, irregular heartbeat infection numbness speech problems swallowing problems unusual weakness Side effects that usually do not require medical attention (report to your doctor or health customer care voice consultant if they continue or are bothersome): bruising or pain at site where injected drooping eyelid dry eyes or mouth headache muscles aches, pains sensitivity to light tearing What may interact with this medicine? aminoglycoside antibiotics like gentamicin, neomycin, tobramycin muscle relaxants other botulinum toxin injections What if I miss a dose? This does not apply. Where should I keep my medicine? This drug is given in a hospital or clinic and will not be stored at home. What should I tell my health care provider before I take this medicine? They need to know if you have any of these conditions: breathing problems cerebral palsy spasms difficulty urinating heart problems history of surgery where this medicine is going to be used infection at the site where this medicine is going to be used myasthenia gravis or other neurologic disease nerve or muscle disease surgery plans take medicines that treat or prevent blood clots thyroid problems an unusual or allergic reaction to botulinum toxin, albumin, other medicines, foods, dye s, or preservatives or trying to get breast-feeding What should I watch for while using this medicine? Visit your doctor for regular check ups. This medicine will cause weakness in the muscle where it is injected. Tell your doctor if y ou feel unusually weak in other muscles. Get medical help right away if you have problems wi th breathing, swallowing, or talking. This medicine might make your eyelids droop or make you see blurry or double. If you have w eak muscles or trouble seeing do not drive a car, use machinery, or do other dangerous activ ities. This medicine contains albumin from human blood. It may be possible to pass an infection in this medicine, but no cases have been reported. Talk to your doctor about the risks and miri efits of this medicine. If your activities have been limited by your condition, go back to your regular routine slo wly after treatment with this medicine. NOTE:This sheet is a summary. It may not cover all possible information. If you have questi ons about this medicine, talk to your doctor, pharmacist, or health care provider. Copyright 2019 [employer] documented in this encounter Progress Notes Chente Luz MD - 01/25/2020 10:30 AM PDT Patient: Lata Brandon Medical Record: [id number] Date of Services: 01/25/2020 Referring Doctor: Xiomara Gloria PA-C Chief Complaint: Worsening and persistent migraines, essential tremors History of Present Illness: Ms. Brandon was a 39-year-old right-handed lady, seen for neurologic evaluation, experiencin g worsening migraine headaches. She has been experiencing headaches since her teenage years described as sharp to throbbing in nature, starting in the right side, retro-orbital area, becoming diffuse with associated photophobia, occasional nausea but no vomiting. Patient's headaches has increased in frequency and intensity, experiencing headaches at least 3 4 ti mes a week, lasting more than 2 to 3 days at times, for the past 6 months. She has tried sum atriptan and rizatriptan to abort her headaches with intermittent relief only and will give another triptan such as Elatriptan to abort her headaches. She also has tried nadolol, Elavil, and presently on Topamax, however, she has been experie ncing mood changes. She has been also to receiving Prozac 20 mg daily for her and anxiety w ill increase to 40 mg for headache prophylaxis also. She was being followed by Dr. Paulson in [facility], however Dr. Paulson apparent ly moved and patient came to the office today for establishment of care. Recent MRI of the brain was performed apparently in August 2019 in [place], [place] will try to get the results. I had the results of his CT scan of the head without contrast perf ormed on June 28, 2018 an MRI of the orbits with and without contrast performed on May 15, 2017 which were within normal limits. I discussed in great detail with Ms. Brandon other treatment options such as Botox injection s to improve her migraine headaches and anti-CGRP injectables. Due to her significant neck spasms and pain and persistent migraines, I will give a trial of Botox injections and will try to get this medication as soon as insurance approves. I discussed with Ms. Brandon the s kevon effects of Botox. Patient has no clear history of rebound headache phenomenon or overuse of medications. In addition, she has been experiencing tremors for many years with no evidence of rigidity or bradykinesia. Her mother has significant history of migraine headaches and tremors. Her tremors usually worsen with increased anxiety and stress. As far as her neck pain is concerned, I discussed other treatment options such as acupunctu re treatments, massage therapy, relaxation therapy, [id number] creams or patches, and cortisone shots. Patient likely to undergo PT/OT through [facility] physical [facility] salmeron and I am hoping that the Botox may also improve her neck symptoms. Past Medical History: Diagnosis Date Allergic rhinitis Constipation Crohn's disease (HCC) Diarrhea Endometriosis Endometriosis GERD (gastroesophageal reflux disease) Hemorrhoids Rectal bleeding Tremor Wears contact lenses Weight loss Social History Socioeconomic History Marital status: Spouse name: Not on file Number of children: Not on file Years of education: Not on file Highest education level: Not on file Occupational History Not on file Social Needs Financial resource strain: Not on file Food insecurity: Worry: Not on file Inability: Not on file Transportation needs: Medical: Not on file Non-medical: Not on file Tobacco Use Smoking status: Never Smoker Smokeless tobacco: Never Used Substance and Sexual Activity Alcohol use: No Comment: ocassionally Drug use: No Comment: Drug use: No Sexual activity: Not on file Lifestyle Physical activity: Days per week: Not on file Minutes per session: Not on file Stress: Not on file Relationships Social connections: Talks on phone: Not on file Gets together: Not on file Attends jehovah's witness service: Not on file Active member of club or organization: Not on file Attends meetings of clubs or organizations: Not on file Relationship status: Not on file Intimate partner violence: Fear of current or ex partner: Not on file Emotionally abused: Not on file Physically abused: Not on file Forced sexual activity: Not on file Other Topics Concern Not on file Social History Narrative Not on file Family History Problem Relation Age of Onset Multiple sclerosis Mother Cancer Mother Cancer Other Breast cancer Maternal Grandmother Cancer Maternal Grandmother Melanoma of the skin Review of Systems: Denies earache, nasal catarrh, diplopia, blurring of vision, dysphagia, odynophagia, sore throat, neck masses, hearing loss, chest pain, palpitations, shortness of breath, cough, hemoptysis, abdominal pain, diarrhea, constipation, bowel or bladder dysfunc tion, hematuria, dysuria, lymphadenopathies, echhymoses, rashes, gait ataxia, and homicidal or suicidal ideations. Current Outpatient Medications Medication Sig Dispense Refill albuterol 2.5 mg/3 mL nebulizer solution albuterol 90 mcg/puff inhaler ascorbic acid (VITAMIN C) 500 mg chewable tablet Chew and swallow 500 mg Daily. Calcium Carbonate Antacid (TUMS PO) Take by mouth Daily. Cetirizine HCl (ZYRTEC PO) Take by mouth Daily. eletriptan (RELPAX) 40 mg tablet Take one tab at onset if migraine and can repeat in 45 mis up to 2 per day 20 tablet 2 ferrous sulfate 325 mg tablet Take 325 mg by mouth daily (with breakfast). fish oil 1,000 mg capsule Take 1,000 mg by mouth 3 times daily. FLUoxetine (PROZAC) 10 mg capsule Take 4 capsules by mouth nightly for 30 days. 30 caps ule 5 fluticasone (FLONASE) 50 mcg/nasal spray 1 spray by Nasal route. Lactobacillus (ACIDOPHILUS PROBIOTIC) TABS Take 1 tablet by mouth Daily. levonorgestrel (MIRENA) 20 MCG/24HR IUD 1 Device by Intrauterine route once. loratadine (CLARITIN) 10 mg tablet Take 10 mg by mouth Daily. Multiple Vitamin (DAILY VITES) TABS Take 1 tablet by mouth Daily. omeprazole (PRILOSEC) 20 mg capsule Take 20 mg by mouth. ondansetron (ZOFRAN ODT) 4 mg disintegrating tablet Take 1 tablet by mouth every 8 hour s as needed for Nausea for up to 30 days. 40 tablet 5 pantoprazole (PROTONIX) 20 mg tablet Take 20 mg by mouth 2 times daily (before meals). PROBIOTIC PRODUCT PO Take by mouth. Pseudoephedrine HCl (SUDAFED 12 HOUR PO) Take by mouth Daily. topiramate (TOPAMAX) 25 mg tablet 1/2 tablet at bedtime. Increase slowly as directed yu Paulson up to 4 tablets at bedtime. traZODone (DESYREL) 100 mg tablet Take 50 mg by mouth nightly. UNABLE TO FIND Med Name: Olga No current facility-administered medications for this visit. Allergies Allergen Reactions Sulfamethoxazole-Trimethoprim Rash and Hives Sulfa Antibiotics Other (See Comments) Unknown Labs & Diagnostics: No results found for this or any previous visit (from the past 24 hour(s)). No results found. Neurological Examination: Vitals: 01/25/20 1019 BP: 122/60 Pulse: 79 Resp: 20 PainSc: 4 PainLoc: Generalized MENTAL STATUS: The patient is awake, alert, and oriented to time, place, and person. Spee is fluent. Memory, attention, comprehension, and general fund of knowledge are intact. CRANIAL NERVES: Funduscopy revealed distinct disc margins. There are no exudates or hemor rhages noted. Pupils are 3-4 mm, equal and reactive to light and accommodation. Extraocular muscle movements are intact. There are no visual field cuts. There is no nystagmus. There is no facial asymmetry. Facial sensation is intact. Palate elevates symmetrically. Streng th in the trapezius and sternocleidomastoid muscles is normal. Tongue is midline on protrusi on. MOTOR EXAMINATION: Strength is 5/5 throughout. Tone is normal. SENSORY EXAMINATION: Intact to light touch, pin prick, vibration, and proprioception. The re is no extinction on double simultaneous stimulation. DEEP TENDON REFLEXES: 2+ and symmetric. PLANTAR RESPONSES: Downgoing bilaterally GAIT: Gait and station are normal. Able to tandem gait, Romberg was negative CEREBELLAR EXAMINATION: Tremors with hands outstretched, 9-12 Hz, with no evidence of spa sticity, rigidity, or bradykinesia MISCELLANEOUS EXAM: Well kept, well nourished, Atraumatic, no evidence of frontal or maxil mikki sinus tenderness, no neck masses, tenderness in the paraspinal cervical spine, trapeziu s, and suprascapular muscles with the decrease with decreased range of motion space on flexi on and extension at 5-10, abdomen is soft and nontender, extremities equally palpable pul ses Clinical Impression: Migraine without aura, intractable, non status migranous Cervical spine strain due to spasms Essential Tremors History of anxiety Plan: Please schedule next follow up appt with Yanaankush in 3-4 months Migraine without aura, intractable, non status migranous Cervical spine strain due to spasms Essential Tremors You have the following tests/procedures ordered: Orders Placed This Encounter Procedures [facility] Physical Therapy, External - AMB Referral BOTOX INJECTION PAIN CLINIC PROCEDURE Treatment Option- massage, Acupuncture, Over the counter heat patches (icy hot, thermacare, salonpas) , over the counter creams (aspercream, bengay cream, emu oi l), Relaxation therapy, Water therapy, Cortisone shots, Toradol Injections Suggest reading newspapers. magazines, perform word find exercises such as cross word puzz le, and scrabble, other puzzle games like SudHubbau, Mahjong. Play computer/mobile applications such as Ryzing and Ludi [employer]AMES Relpax 40 mg at onset of migraine and can repeat in 45 mins up to 2 per day Increase Prozac to 40 mg daily for headache prophylaxis and anxiety Taper topamax one tab per week due to mood changes Headache calendar Trial of Botox as soon as insurance approves Obtain recent MRI of brain in [place] If essential tremors worsen, advised to call and can give a trial of Pirmidone or Klonopin Any Questions please call TORIE Diggs or Dr. Luz at [facility] Chente Luz MD01/25/202011:16 AM Electronically signed NOTE: Part of this report was transcribed using voice recognition software. Every effort was made to ensure accuracy. However, inadvertent computerize crackling press operator errors may be present documented in this encounter Plan of Treatment +--------+---------+ + + + | Date | Type | Specialty | Care Team | Description | +--------+---------+ + + + | 06/11/ | Office | Neurology | [place], | | 2019 | Visit | | MIRIAN N[address] [place], | | | | | | [place] [address] | | | | | | [phone] | | | | | | | | +--------+---------+ + + + + + +--------+ + + | Name | Type | Priori | Associated Diagnoses | Order Schedule | | | | ty | | | + + +--------+ + + | BOTOX INJECTION PAIN | Neurology | Routin | Intractable | Ordered: 01/25/2020 | | CLINIC PROCEDURE | | e | migraine without | | | | | | aura and without | | | | | | status migrainosus | | + + +--------+ + + + + +--------+ + + | Name | Type | Priori | Associated Diagnoses | Order Schedule | | | | ty | | | + + +--------+ + + | [facility] | Outpatient | Routin | Intractable | Ordered: 01/25/2020 | | Hospital Physical | Referral | e | migraine without | | | Therapy, External - | | | aura and without | | | AMB Referral | | | status migrainosus | | | | | | Bilateral neck pain | | + + +--------+ + + documented as of this encounter Visit Diagnoses + + | Diagnosis | + + | Bilateral neck pain - Primary Cervicalgia | + + | Intractable migraine without aura and without status migrainosus Migraine without | | aura, with intractable migraine, so stated, without mention of status migrainosus | + + documented in this encounter
--- OUTSIDE RECORDS SUMMARY | ~2020-05-13 | XMS | Clinical Summary ---
Demographics + + + | Address | [address] | | | [place] [address] | + + + | Home Phone | | + + + | Preferred Language | Unknown | + + + | Marital Status | | + + + | Congregational Affiliation | Unknown | + + + | Race | White | + + + | Ethnic Group | Not or | + + + Author + + + | Author | [facility] | + + + | Organization | [facility] | + + + | Address | Unknown | + + + | Phone | Unavailable | + + + Support + + +---------+ + | Name | Relationship | Address | Phone | + + +---------+ + | Mick Brandon | ECON | Unknown | | + + +---------+ + Care Team Providers + +------+ + | Care Labeling Machine Operator Name | Role | Phone | + +------+ + | Xiomara Gloria | PCP | | + +------+ + Source Comments HUY is fully live on both EpicCare Ambulatory and EpicCare InPatient.[facility] Allergies + + + + + + | Active Allergy | Reactions | Severity | Noted | Comments | | | | | Date | | + + + + + + | Sulfamethoxazole-Tri | | | 05/11/20 | | | methoprim | | | 12 | | + + + + + + Medications + + + +---------+------+------+-------+ | Medication | Sig | Dispensed | Refills | Star | End | Statu | | | | | | t | Date | s | | | | | | Date | | | + + + +---------+------+------+-------+ | fexofenadine | Take 60 mg by mouth | | 0 | | | Activ | | (AUSTIN) 60 mg Oral | two times daily. | | | | | e | | Tablet | | | | | | | + + + +---------+------+------+-------+ | PSEUDOEPHEDRINE | Take by mouth. | | 0 | | | Activ | | HCL (SUDAFED 12 HOUR | | | | | | e | | ORAL) | | | | | | | + + + +---------+------+------+-------+ | B INFANTIS/B ANI/B | Take by mouth. | | 0 | | | Activ | | ALBERTO/B BIFID | | | | | | e | | (PROBIOTIC 4X ORAL) | | | | | | | + + + +---------+------+------+-------+ | methylPREDNISolone | Follow package | 1 | 1 | 04/22 | | Activ | | (MEDROL, JUAN,) 4 mg | directions. | Package | | 10/10 | | e | | Oral Tablets, Dose | | | | 12 | | | | Pack | | | | | | | + + + +---------+------+------+-------+ Active Problems + + + | Problem | Noted Date | + + + | Left facial swelling | 05/11/2012 | + + + Social History + +-------+ [...] | | + + + + + Plan of Treatment + + +-------+ + | Health Maintenance | Due Date | Last | Comments | | | | Done | | + + +-------+ + | Influenza (Flu) | | | | | vaccination (#1) | 9 | | | + + +-------+ + | Pneumococcal | Aged Out | | No longer eligible based on patient's age | | vaccination | | | to complete this topic | + + +-------+ + Results Not on filefrom Last 3 Months Insurance + +--------+ +--------+ + +------+ | Payer | Benefi | Subscriber | Effect | Phone | Address | Type | | | t Plan | ID | carley | | | | | | / | | Dates | | | | | | Group | | | | | | + +--------+ +--------+ + +------+ | [employer] | MODA | [id number] | | [phone] | [address] | PPO | | | [employer] | | [phone] | [phone] | | | | [place] | | esent | | [place], | | | | [place] | | | | [place] [address] | | + +--------+ +--------+ + +------+ + +--------+ +--------+ + + | Guarantor Name | Accoun | Relation to | Date | Phone | Billing Address | | | t Type | Patient | of | | | | | | | | | | + +--------+ +--------+ + + | Lata Brandon | Person | Self [birth year] | [address] | | | al/Fam | | 1980 | [phone] | [place] [address] | | | james | | | 4 (Home) | | + +--------+ +--------+ + +
--- OUTSIDE RECORDS SUMMARY | ~2020-05-13 | XMS | Encounter Summary ---
Demographics + + + | Address | [address] | | | [place] [address] | + + + | Home Phone | | + + + | Preferred Language | Unknown | + + + | Marital Status | | + + + | Caodaism Affiliation | Unknown | + + + | Race | White | + + + | Ethnic Group | Not or | + + + Author + + + | Author | [facility] | + + + | Organization | [facility] | + + + | Address | Unknown | + + + | Phone | Unavailable | + + + Support + + +---------+ + | Name | Relationship | Address | Phone | + + +---------+ + | Mick Brandon | ECON | Unknown | | + + +---------+ + Care Team Providers + +------+ + | Care Coarse Wire Drawer Name | Role | Phone | + +------+ + | Xiomara Gloria | PCP | | + +------+ + Encounter Details +--------+ + + + + | Date | Type | Department | Care Team | Description | +--------+ + + + + | 01/26/ | Document-Sc | Health Information | Unknown . | | | 2007 | anned | Services [address] | | | | | [address] | | | | | | Mailcode: [id number] | | | | | | [facility] | | | | | | [place], [place] | | | | | | [address] | | | | | | [phone] | | | +--------+ + + + [...] + + + | RADIOLOGY | | 01/27/2008 | | Results for this | | | | 12:00 AM | | procedure are in the | | | | PDT | | results section. | + +--------+ + + + documented in this encounter Results RADIOLOGY (01/27/2008 12:00 AM PDT) + + + | Narrative | Performed At | + + + | | | + + + documented in this encounter Visit Diagnoses Not on filedocumented in this encounter"
--- OUTSIDE RECORDS SUMMARY | ~2020-05-13 | XMS | Encounter Summary ---
Demographics + + + | Address | [address] | | | [place] [address] | + + + | Home Phone [...] Author + + + | Author | [facility] | | | and [place] | + + + | Organization | [facility] | | | and [place] | + + + | Address | Unknown | + + + | Phone | Unavailable | + + + Care Team Providers + +------+ + | Care Oyster Bed Worker Name | Role | Phone | + +------+ + | Xiomara Gloria PA-C | PCP | | + +------+ + Encounter Details +--------+ + + + + | Date | Type | Department | Care Team | Description | +--------+ + + + + | 10/16/ | Orders Only | [facility] | Mk Gupta DO | | | 2015 | | [address] | [address] | | | | | [place], [place] | [place] [address] | | | | | [address] | [phone] | | | | | [phone] | | | +--------+ + + + [...] | Neurology | Miguelito, | | | 2020 | Visit | | [address] | | | | | | [address] [facility], | | | | | | [place] [address] | | | | | | [phone] | | | | | | | | +--------+---------+ + + + documented as of this encounter Procedures + +--------+ + + + | Procedure Name | Priori | Date/Time | Associated Diagnosis | Comments | | | ty | | | | + +--------+ + + + | HIV 1 AND 2 ANTIBODY | Routin | 10/16/2015 | | Results for this | | DIFFERENTIATION | e | 11:15 AM | | procedure are in the | | | | PST | | results section. | + +--------+ + + + | RAPID PLASMA REAGIN, | Routin | 10/16/2015 | | Results for this | | QUANT | e | 11:15 AM | | procedure are in the | | | | PST | | results section. | + +--------+ + + + | FUNGAL AB, PANEL | Routin | 10/16/2015 | | Results for this | | | e | 11:15 AM | | procedure are in the | | | | PST | | results section. | + +--------+ + + + | ANGIOTENSIN I | Routin | 10/16/2015 | | Results for this | | CONVERTING ENZYME | e | 11:15 AM | | procedure are in the | | | | PST | | results section. | + +--------+ + + + documented in this encounter Results Fungal Ab, Panel (10/16/2015 11:15 AM PST) + + + + + + | Component | Value | Ref Range | Performed | Pathologist | | | | | At | Signature | + + + + + + | BLASTOMYCES | <1:8Comment: REFERENCE | | EXTERNAL | | | ANTIBODY | RANGE: <1:8INTERPRETIVE | | LAB | | | CF CSF | INFORMATION: BLASTOMYCES | | | | | | ANTIBODY BY | | | | | | COMPLEMENTFIXATION(CF)LE | | | | | | SS THAN 40 PERCENT OF | | | | | | PATIENTS HAVE POSITIVE | | | | | | TESTS WHEN ACTIVEDISEASE | | | | | | IS PRESENT. FREQUENT | | | | | | CROSS-REACTIONS OCCUR IN | | | | | | PATIENTS | | | | | | WITHHISTOPLASMOSIS OR | | | | | | COCCIDIOIDOMYCOSIS. | | | | | | PAIRED SERA MAY DETECT | | | | | | RISE INTITER TO SINGLE | | | | | | ANTIGEN.Testing | | | | | | performed at [facility], [address] | | | | | | [facility] | | | | | | [place] [id number] | | | | + + + + + + | Blastomyces | NONE DETECTEDComment: | | EXTERNAL | | | Antibody | REFERENCE RANGE: NONE | | LAB | | | | DETECTEDINTERPRETIVE | | | | | | INFORMATION: BLASTOMYCES | | | | | | DERMATITIDIS ANTIBODIES | | | | | | BY | | | | | | | | | | | | IMMUNODIFFUSIONA | | | | | | POSITIVE RESULT MAY | | | | | | SUGGEST ACTIVE OR RECENT | | | | | | INFECTION. THE TEST | | | | | | ISPOSITIVE IN ABOUT 80 | | | | | | PERCENT OF CASES. CROSS | | | | | | REACTIONS | | | | | | OCCUR,ESPECIALLY WITH | | | | | | HISTOPLASMOSIS. A | | | | | | NEGATIVE TEST (NONE | | | | | | DETECTED) DOESNOT | | | | | | EXCLUDE | | | | | | BLASTOMYCOSIS.Testing | | | | | | performed at [facility], [address] | | | | | | [facility] | | | | | | [facility] [address] | | | | + + + + + + | Aspergillus | <1:8Comment: REFERENCE | | EXTERNAL | | | Ab CF, CSF | RANGE: <1:8INTERPRETIVE | | LAB | | | | INFORMATION: ASPERGILLUS | | | | | | ANTIBODY BY COMPLEMENT | | | | | | FIXATION(CF)CROSS-REACTI | | | | | | ONS WITH DIMORPHIC FUNGI | | | | | | ARE NOT UNUSUAL WITHIN | | | | | | THE GENUSASPERGILLUS. A | | | | | | NEGATIVE TEST DOES NOT | | | | | | EXCLUDE INFECTION, | | | | | | ESPECIALLYIN IMMUNO- | | | | | | COMPROMISED PATIENTS. | | | | | | BEST USE OF TEST IS WITH | | | | | | PAIRED SERATAKEN THREE | | | | | | WEEKS APART TO DETECT A | | | | | | RISE IN TITER AGAINST A | | | | | | SINGLEANTIGEN.Testing | | | | | | performed at [facility], [address] | | | | | | [facility] | | | | | | [place] [address] | | | | + + + + + + | Aspergillus | NONE DETECTEDComment: | | EXTERNAL | | | Antibody | REFERENCE RANGE: NONE | | LAB | | | | DETECTEDINTERPRETIVE | | | | | | INFORMATION: ASPERGILLUS | | | | | | SPP. ANTIBODIES BY | | | | | | | | | | | | | | | | | | IMMUNODIFFUSIONIN | | | | | | GENERAL, IMMUNODIFFUSION | | | | | | MEASURES IGG AND A | | | | | | POSITIVE RESULT | | | | | | MAYSUGGEST PAST | | | | | | INFECTION. THE TEST IS | | | | | | POSITIVE IN ABOUT 90 | | | | | | PERCENT OFSERA FROM | | | | | | PATIENTS WITH | | | | | | ASPERGILLOMA AND 50-70 | | | | | | PERCENT OF PATIENTSWITH | | | | | | ALLERGIC | | | | | | BRONCHOPULMONARY | | | | | | ASPERGILLOSIS. A | | | | | | NEGATIVE TEST | | | | | | (NONEDETECTED) DOES NOT | | | | | | EXCLUDE | | | | | | ASPERGILLOSIS.Testing | | | | | | performed at [facility], [address] | | | | | | [facility] | | | | | | [place] [address] | | | | + + + + + + | Coccidioide | <1:2Comment: REFERENCE | | EXTERNAL | | | s Ab by CF | RANGE: <1:2 | | LAB | | | | INTERPRETIVE | | | | | | CRITERIA: | | | | | | <1:2 | | | | | | ANTIBODY NOT DETECTED | | | | | | | | | | | | > OR = 1:2 | | | | | | ANTIBODY DETECTEDALL | | | | | | SERUM TITERS > OR = 1:2 | | | | | | SHOULD BE | | | | | | CONSIDEREDEVIDENCE | | | | | | INDICATIVE OF | | | | | | COCCIDIOIDOMYCOSIS,ALTHO | | | | | | UGH TITERS OF 1:2 AND | | | | | | 1:4 SHOULD BE | | | | | | CONFIRMEDBY | | | | | | IMMUNODIFFUSION TESTING. | | | | | | TITERS EXCEEDING | | | | | | 1:16USUALLY REFLECT | | | | | | DISSEMINATED DISEASE. IN | | | | | | GENERAL,HIGHER TITERS | | | | | | ARE CORRELATED WITH | | | | | | DISEASESEVERITY, AND | | | | | | CHANGES IN SERIAL TITERS | | | | | | ARE OFPROGNOSTIC VALUE. | | | | | | A NEGATIVE CF TEST DOES | | | | | | NOT,HOWEVER, RULE OUT | | | | | | THE DIAGNOSIS. ONLY 70% | | | | | | OFPATIENTS WITH CAVITARY | | | | | | DISEASE ARE POSITIVE, | | | | | | ANDONLY 30% OF PATIENTS | | | | | | WITH NODULAR DISEASE | | | | | | AREPOSITIVE.THIS TEST | | | | | | WAS DEVELOPED AND ITS | | | | | | ANALYTICAL | | | | | | PERFORMANCECHARACTERISTI | | | | | | CS HAVE BEEN DETERMINED | | | | | | BY [facility].IT | | | | | | HAS NOT BEEN CLEARED OR | | | | | | APPROVED BY FDA. THIS | | | | | | ASSAY HASBEEN VALIDATED | | | | | | PURSUANT TO THE CLIA | | | | | | REGULATIONS AND IS USED | | | | | | FORCLINICAL | | | | | | PURPOSES.Testing | | | | | | performed at [facility] | | | | [facility], [address] | | | | [address], [place] | | | | | | [address] | | | | + + + + + + | Coccidioide | NEGATIVEComment: | | EXTERNAL | | | s Ab by ID | REFERENCE RANGE: | | LAB | | | | NEGATIVEINTERPRETIVE | | | | | | CRITERIA: | | | | | | NEGATIVE: | | | | | | ANTIBODY NOT DETECTED | | | | | | | | | | | | POSITIVE: ANTIBODY | | | | | | DETECTEDTHE | | | | | | IMMUNODIFFUSION (ID) | | | | | | PROCEDURE CORRELATES | | | | | | BOTHIN SENSITIVITY AND | | | | | | CLINICAL UTILITY WITH | | | | | | THE CFTEST. THE ID TEST, | | | | | | WHICH DETECTS IGG | | | | | | DIRECTED TOTHE "F" | | | | | | ANTIGEN, BECOMES | | | | | | POSITIVE WITHIN 4 | | | | | | WEEKSAFTER INFECTION AND | | | | | | REMAINS POSITIVE | | | | | | THROUGHOUTCLINICALLY | | | | | | ACTIVE DISEASE. IT IS | | | | | | MOST USEFUL INCONFIRMING | | | | | | THE SPECIFICITY OF LOW | | | | | | CF TITERS, WHERELINE(S) | | | | | | OF IDENTITY ARE FORMED | | | | | | WITH REFERENCEANTISERA. | | | | | | POSITIVE ID REACTIONS | | | | | | ARE DIAGNOSTIC | | | | | | FORCOCCIDIOIDOMYCOSIS | | | | | | AND USUALLY INDICATE | | | | | | ACTIVE ORRECENT DISEASE | | | | | | AND REMAIN DETECTABLE | | | | | | FOR UP TO 1YEAR | | | | | | THEREAFTER.Testing | | | | | | performed at [facility] | | | | | | [facility], [address] | | | | | | [place] | | | | | | [address] | | | | + + + + + + | HISTOPLASMA | <1:8Comment: REFERENCE | | EXTERNAL | | | AB | RANGE: <1:8Testing | | LAB | | | MYCELIAL CF | performed at [facility], [address] | | | | | CSF | [facility] | | | | | | [facility] [address] | | | | + + + + + + | Histoplasma | <1:8Comment: REFERENCE | | EXTERNAL | | | Ab Yeast | RANGE: <1:8INTERPRETIVE | | LAB | | | CF | INFORMATION: | | | | | | HISTOPLASMA ANTIBODIES | | | | | | BY COMPLEMENTFIXATION | | | | | | (CF)AN ANTIBODY TITER | | | | | | GREATER THAN OR EQUAL TO | | | | | | 1:8 IS | | | | | | GENERALLYCONSIDERED | | | | | | PRESUMPTIVE EVIDENCE OF | | | | | | HISTOPLASMOSIS. GREATER | | | | | | THAN 1:32OR RISING | | | | | | TITERS INDICATE STRONG | | | | | | PRESUMPTIVE EVIDENCE | | | | | | OFHISTOPLASMOSIS.THE | | | | | | YEAST PHASE IS REGARDED | | | | | | MORE SENSITIVE. | | | | | | APPROXIMATE 90-95PERCENT | | | | | | OF CASES HAVE POSITIVE | | | | | | TITERS TO ONE OR BOTH | | | | | | ANTIGENS. TITERSTO | | | | | | MYCELIAL ANTIGEN ARE | | | | | | HIGHER IN CHRONIC | | | | | | INFECTION. CROSS | | | | | | REACTIONS,USUALLY AT | | | | | | LOWER TITERS, MAY OCCUR | | | | | | WITH OTHER FUNGAL | | | | | | DISEASE. RISINGTITERS | | | | | | SUGGEST PROGRESSION OF | | | | | | INFECTION. SKIN TESTS IN | | | | | | INDIVIDUALSPREVIOUSLY | | | | | | EXPOSED MAY CAUSE TITER | | | | | | ELEVATION IN 17-20 | | | | | | PERCENT OFCASES.Testing | | | | | | performed at [facility], [address] | | | | | | [facility] | | | | | | [facility] [address] | | | | + + + + + + | Histoplasma | NONE DETECTEDComment: | | EXTERNAL | | | Ab | REFERENCE RANGE: NONE | | LAB | | | | DETECTEDINTERPRETIVE | | | | | | INFORMATION: HISTOPLASMA | | | | | | SPP. ANTIBODIES BY | | | | | | | | | | | | | | | | | | IMMUNODIFFUSIONTHE | | | | | | IMMUNODIFFUSION TEST CAN | | | | | | DETECT PRECIPITINS TO | | | | | | SPECIFICHISTOPLASMA | | | | | | PROTEIN ANTIGENS (M AND | | | | | | H). THE M BAND OFTEN | | | | | | APPEARSFIRST AND MAY | | | | | | OCCUR WITHOUT THE H | | | | | | BAND. M PRECIPITIN IS | | | | | | FOUND INABOUT 70 PERCENT | | | | | | OF BOTH ACUTE AND | | | | | | CHRONIC HISTOPLASMOSIS | | | | | | CASES.BOTH M AND H OCCUR | | | | | | TOGETHER IN ONLY ABOUT | | | | | | 10 PERCENT OF | | | | | | PATIENTS.Testing | | | | | | performed at [facility], [address] | | | | | | [place] | | | | | | [facility] [address] | | | | + + + + + + + + | Specimen | + + | | + + + +---------+ + + | Performing | Address | City/State/Zipcode | Phone Number | | Organization | | | | + +---------+ + + | EXTERNAL LAB | | | | + +---------+ + + Rapid Randy Antonio (10/16/2015 11:15 AM PST) + + + + + + | Component | Value | Ref Range | Performed | Pathologist | | | | | At | Signature | + + + + + + | RPR TITER | <1:1Comment: Reference | | EXTERNAL | | | | range: [id number] | | LAB | | | | RANGE: <1:1NOTE NEW | | | | | | REFERENCE RANGETesting | | | | | | performed at [facility], [address] | | | | | | [address] | | | | | | [place] [address] | | | | + + + + + + + + | Specimen | + + | Blood specimen | | (specimen) | + + + +---------+ + + | Performing | Address | City/State/Zipcode | Phone Number | | Organization | | | | + +---------+ + + | EXTERNAL LAB | | | | + +---------+ + + HIV 1 and 2 Antibody Differentiation (10/16/2015 11:15 AM PST) + + + + + + | Component | Value | Ref Range | Performed | Pathologist | | | | | At | Signature | + + + + + + | HIV 1 and 2 | NON REACTIVEComment: THE | | EXTERNAL | | | Ab | NON REACTIVE HIV 1/2 | | LAB | | | | ANTIBODY RESULT | | | | | | INDICATES THAT | | | | | | ANTIBODIES TO HIV 1/2 | | | | | | HAVE NOT BEEN DETECTED | | | | | | IN THIS SPECIMEN. THIS | | | | | | RESULT DOES NOT | | | | | | PRECLUDE PREVIOUS | | | | | | EXPOSURE OR | | | | | | INFECTION.Testing | | | | | | performed at [facility];[address] | | | | | | [address] | | | | | | [place] [address] | | | | | | | | | | + + + + + + + + | Specimen | + + | Blood specimen | | (specimen) | + + + +---------+ + + | Performing | Address | City/State/Zipcode | Phone Number | | Organization | | | | + +---------+ + + | EXTERNAL LAB | | | | + +---------+ + + Angiotensin I Converting Enzyme (10/16/2015 11:15 AM PST) + + + + + + | Component | Value | Ref Range | Performed | Pathologist | | | | | At | Signature | + + + + + + | Angiotensin | 40Comment: Testing | 4 - 60 U/L | EXTERNAL | | | -Converting | performed at [facility] | | LAB | | | Enzyme | [facility], | | | | | | [address], [place] | | | | | | [address] | | | | + + + + + + + + | Specimen | + + | Blood specimen | | (specimen) | + + + +---------+ + + | Performing | Address | City/State/Zipcode | Phone Number | | Organization | | | | + +---------+ + + | EXTERNAL LAB | | | | + +---------+ + + documented in this encounter Visit Diagnoses Not on filedocumented in this encounter
--- OUTSIDE RECORDS SUMMARY | ~2020-05-13 | XMS | Encounter Summary ---
Demographics + + + | Address | [address] | | | [place] [address] | + + + | Home Phone | | + + + | Preferred Language | Unknown | + + + | Marital Status | | + + + | Spiritism Affiliation | Unknown | + + + | Race | Black or | + + + | Ethnic Group | Not or | + + + Author + + + | Author | [facility] | | | and [place] | + + + | Organization | [facility] | | | and [place] | + + + | Address | Unknown | + + + | Phone | Unavailable | + + + Care Team Providers + +------+ + | Care Anesthesiology Physician Name | Role | Phone | + +------+ + | Xiomara Gloria PA-C | PCP | | + +------+ + Reason for Visit + +--------+ + | Reason | Onset | Comments | | | Date | | + +--------+ + | Results, Pathology | 12/04/ | | | | 2014 | | + +--------+ + Encounter Details +--------+ + + + + | Date | Type | Department | Care Team | Description | +--------+ + + + + | 12/04/ | Telephone | [facility] | Waylon Castellano MD | Results, Pathology | | 2014 | | GASTROENTEROLOGY | [address], [place] | | | | | [address] | [address] | | | | | [address] [place] | [address] | | | | | [address] | | | | | | [phone] | | | +--------+ + + + [...] this encounter Miscellaneous Notes Telephone Encounter - Dolores Garcia RN - 12/04/2014 11:04 AM PDTNotified patient th at H Pylori biopsy from stomach was negative. Esophageal biopsies negative for German's, n egative inflammation. .Brasher report pending. She will make f/u appt with Coni to go over al l her test results. She had GES done and manometry. elephone Shila Culp - 12/04/2014 10:45 AM PDTPatient called and was following up 1 week yamileth cornejo as instructed from her procedure with Dr Castellano. Please follow up. documented in this encounter Plan of Treatment +--------+---------+ + + + | Date | Type | Specialty | Care Team | Description | +--------+---------+ + + + | 06/11/ | Office | Neurology | Miguelito, | | | 2020 | Visit | | [address] | | | | | [address] [place], | | | | | | [place] [address] | | | | | | [phone] | | | | | | | | +--------+---------+ + + + documented as of this encounter Visit Diagnoses Not on filedocumented in this encounter"
--- OUTSIDE RECORDS SUMMARY | ~2020-05-13 | XMS | Encounter Summary ---
Demographics + + + | Address | [address] | | | [place] [address] | + + + | Home Phone [...] Author + + + | Author | [facility] | | | and [place] | + + + | Organization | [facility] | | | and [place] | + + + | Address | Unknown | + + + | Phone | Unavailable | + + + Care Team Providers + +------+ + | Care Ballet Soloist Name | Role | Phone | + +------+ + | Xiomara Gloria PA-C | PCP | | + +------+ + Reason for Visit + +--------+ + | Reason | Onset | Comments | | | Date | | + +--------+ + | Medication Refill | 01/30/ | | | | 2020 | | + +--------+ + Encounter Details +--------+--------+ + + + | Date | Type | Department | Care Team | Description | +--------+--------+ + + + | 01/30/ | Refill | [facility] | Chente Luz MD | Medication Refill | | 2019 | | HOSPITAL NEUROLOGY | [address] | | | | | CLINIC [address] | [place] | | | | | [address] [place] [place], | [address] | | | | | [place] [address] | | | | | | [phone] | | | +--------+--------+ + + + Social History + +-------+ [...] this encounter Miscellaneous Notes Telephone Encounter - Caterina Melara RN - 01/31/2020 9:36 AM PDTPt has five refills, last filled 01/27/20./TORIE Sabillon documented in this encounter Plan of Treatment +--------+---------+ + + + | Date | Type | Specialty | Care Team | Description | +--------+---------+ + + + | 06/11/ | Office | Neurology | Miguelito, | | 2019 | Visit | | [address] | | | | | | [address] [place], | | | | | | [place] [address] | | | | | | [phone] | | | | | | | | +--------+---------+ + + + documented as of this encounter Visit Diagnoses Not on filedocumented in this encounter"
--- OUTSIDE RECORDS SUMMARY | ~2020-05-13 | XMS | Encounter Summary ---
Demographics + + + | Address | [address] | | | [place] [address] | + + + | Home Phone | | + + + | Preferred Language | Unknown | + + + | Marital Status | | + + + | Roman Catholic Affiliation | Unknown | + + + | Race | Black or | + + + | Ethnic Group | Not or | + + + Author + + + | Author | [facility] | | | and [place] | + + + | Organization | [facility] | | | and [place] | + + + | Address | Unknown | + + + | Phone | Unavailable | + + + Care Team Providers + +------+ + | Care Older Adult Social Work Specialist Name | Role | Phone | + +------+ + PCP | Unavailable | + +------+ + Encounter Details +--------+ + + + + | Date | Type | Department | Care Team | Description | +--------+ + + + + | 08/02/ | Hospital | [facility] | | | | 2009 | Encounter | [facility] | | | | | | [address] | | | | | | [place] | | | | | | [address] | | | | | | [phone] | | | +--------+ + + + [...] | | | | | | [place] [address] | | | | | | [phone] | | | | | | | | +--------+---------+ + + + documented as of this encounter Visit Diagnoses Not on filedocumented in this encounter"
--- OUTSIDE RECORDS SUMMARY | ~2020-05-13 | XMS | Encounter Summary ---
Demographics + + + | Address | [address] | | | [place] [address] | + + + | Home Phone | | + + + | Preferred Language | Unknown | + + + | Marital Status | | + + + | Moravian Affiliation | Unknown | + + + | Race | White | + + + | Ethnic Group | Not or | + + + Author + + + | Author | [facility] | + + + | Organization | [facility] | + + + | Address | Unknown | + + + | Phone | Unavailable | + + + Support + + +---------+ + | Name | Relationship | Address | Phone | + + +---------+ + | Mick Brandon | ECON | Unknown | | + + +---------+ + Care Team Providers + +------+ + | Care Professor Of Fine Art Name | Role | Phone | + +------+ + | Xiomara Gloria | PCP | | + +------+ + Encounter Details +--------+ + + + + | Date | Type | Department | Care Team | Description | +--------+ + + + + | 10/03/ | Document-Sc | Health Information | Unknown . | | | 2014 | anned | Services [phone] | | | | | | [address] | | | | | | Mailcode: [id number] | | | | | | [facility] | | | | | | [place], [place] | | | | | | [address] | | | | | | [phone] | | | +--------+ + + + [...]
--- OUTSIDE RECORDS SUMMARY | ~2020-05-13 | XMS | Encounter Summary ---
Demographics + + + | Address | [address] | | | [place] [address] | + + + | Home Phone | | + + + | Preferred Language | Unknown | + + + | Marital Status | | + + + | Buddhist Affiliation | Unknown | + + + | Race | White | + + + | Ethnic Group | Not or | + + + Author + + + | Author | [facility] | + + + | Organization | [facility] | + + + | Address | Unknown | + + + | Phone | Unavailable | + + + Support + + +---------+ + | Name | Relationship | Address | Phone | + + +---------+ + | Mick Brandon | ECON | Unknown | | + + +---------+ + Care Team Providers + +------+ + | Care Windows Infrastructure Engineer Name | Role | Phone | + +------+ + | Gómez Chen MD | PCP | | + +------+ + Encounter Details +--------+ + + + + | Date | Type | Department | Care Team | Description | +--------+ + + + + | 05/10/ | Document-Sc | UNKNOWN DEPARTMENT | Unknown . | | | 2011 | anned | [address] | | | | | | [address] | | | | | | [place], [place] | | | | | | [address] | | | +--------+ + + + [...] + + documented as of this encounter Procedure Ameena Yates - 05/11/2012 1:38 PM PDTAssociated Order(s): RADIOLOGY documented in this encounter Plan of Treatment [...] + | Transcriptions | + + | Sanam, Faculty - 05/11/2012 1:38 PM PDT | + + documented in this encounter Visit Diagnoses Not on filedocumented in this encounter"
--- OUTSIDE RECORDS SUMMARY | ~2020-05-13 | XMS | Encounter Summary ---
Demographics + + + | Address | [address] | | | [place] [address] | + + + | Home Phone | | + + + | Preferred Language | Unknown | + + + | Marital Status | | + + + | Mandaen Affiliation | Unknown | + + + | Race | Black or | + + + | Ethnic Group | Not or | + + + Author + + + | Author | [facility] | | | and [place] | + + + | Organization | [facility] | | | and [place] | + + + | Address | Unknown | + + + | Phone | Unavailable | + + + Care Team Providers + +------+ + | Care Manager Dental Name | Role | Phone | + +------+ + | Xiomara Gloria PA-C | PCP | | + +------+ + Reason for Visit + +--------+ + | Reason | Onset | Comments | | | Date | | + +--------+ + | Appointment | 11/21/ | neymar ramos | | | 2014 | | + +--------+ + Encounter Details +--------+ + + + + | Date | Type | Department | Care Team | Description | +--------+ + + + + | 11/21/ | Telephone | [facility] | Waylon Castellano MD | Appointment (egd | | 2014 | | GASTROENTEROLOGY | [address], [place] | [place]) | | | | [address] | [address] [place] | | | | | [address] [place], [place] | [address] | | | | | [address] | | | | | | [phone] | | | +--------+ + + + [...] Comments | + + +---------+ + | Not Asked | | | | + + +---------+ + + + + | Sex Assigned at | Date Recorded | | | | + + + | Not on file | | + + + documented as of this encounter Miscellaneous Notes Telephone Encounter - Dolores Garcia RN - 11/21/2014 1:59 PM PSTSpoke with patient and she was willing to r/s mano, egd, Ramos to Thursday11/27/14. She will bring the unit back on Thu. in SDS notified. 15 2:00 PM PSTTelephone Encounter - Martha Zuluaga - 11/21/2014 12:07 PM PSTPatient was c alling to reschedule her procedure from 3.10 to 3.9. Please advise. elephone Encounter - Dolores Garcia RN - 11/21/2014 10:56 AM PSTLeft message asking to move her manometry, egd and Ramos to 11/27/14 or the following Thursday or Thu. 12/05/14 or 12/06/14. documented in this encounter Plan of Treatment +--------+---------+ + + + | Date | Type | Specialty | Care Team | Description | +--------+---------+ + + + | 06/11/ | Office | Neurology | [place], | | | 2019 | Visit | | [facility] [address] [address] [place], | | | | | | [place] [address] | | | | | | [phone] | | | | | | | | +--------+---------+ + + + documented as of this encounter Visit Diagnoses Not on filedocumented in this encounter"
--- OUTSIDE RECORDS SUMMARY | ~2020-05-13 | XMS | Encounter Summary ---
Demographics + + + | Address | [address] | | | [place] [address] | + + + | Home Phone | | + + + | Preferred Language | Unknown | + + + | Marital Status | | + + + | Confucianism Affiliation | Unknown | + + + | Race | Black or | + + + | Ethnic Group | Not or | + + + Author + + + | Author | [facility] | | | and [place] | + + + | Organization | [facility] | | | and [place] | + + + | Address | Unknown | + + + | Phone | Unavailable | + + + Care Team Providers + +------+ + | Care C Programmer Name | Role | Phone | + +------+ + | Xiomara Gloria PA-C | PCP | | + +------+ + Reason for Visit +--------+--------+ + | Reason | Onset | Comments | | | Date | | +--------+--------+ + | Other | 10/24/ | | | | 2014 | | +--------+--------+ + Encounter Details +--------+ + + + + | Date | Type | Department | Care Team | Description | +--------+ + + + + | 10/24/ | Telephone | [facility] | Waylon Castellano MD | Other | | 2014 | | GASTROENTEROLOGY | [address] | | | | | [address] | [address] [place] | | | | | [address] [place], [place] | [address] | | | | | [address] | | | | | | [phone] | | | +--------+ + + + [...] this encounter Miscellaneous Notes Telephone Encounter - Pino Peñaloza Cert MA - 10/25/2014 3:59 PM PSTNotes to PSR, patient needs office visit. Closing phone note. elephone Encounter - Shila Stephenson - 10/24/2014 10:24 AM PSTPati ent called checking on her referral. Notes were logged 10/11/14 and chart was not in the to c jaun ayala. Is it still being reviewed? documented in this encounter Plan of Treatment +--------+---------+ + + + | Date | Type | Specialty | Care Team | Description | +--------+---------+ + + + | 06/11/ | Office | Neurology | Miguel[place], | | | 2020 | Visit | | [address] | | | | [address] [place], | | | | | | [place] [address] | | | | | | [phone] | | | | | | | | +--------+---------+ + + + documented as of this encounter Visit Diagnoses Not on filedocumented in this encounter"
--- OUTSIDE RECORDS SUMMARY | ~2020-05-13 | XMS | Encounter Summary ---
Demographics + + + | Address | [address] | | | [place] [address] | + + + | Home Phone | | + + + | Preferred Language | Unknown | + + + | Marital Status | | + + + | Yazidism Affiliation | Unknown | + + + | Race | Black or | + + + | Ethnic Group | Not or | + + + Author + + + | Author | [facility] | | | and [place] | + + + | Organization | [facility] | | | and [place] | + + + | Address | Unknown | + + + | Phone | Unavailable | + + + Care Team Providers + +------+ + | Care Academic Affairs Assistant Name | Role | Phone | + +------+ + | Xiomara Gloria PA-C | PCP | | + +------+ + Reason for Visit +--------+--------+ + | Reason | Onset | Comments | | | Date | | +--------+--------+ + | Other | 11/07/ | gastric emptying study | | | 2014 | | +--------+--------+ + Encounter Details +--------+ + + + + | Date | Type | Department | Care Team | Description | +--------+ + + + + | 11/07/ | Telephone | [facility] | Sarika, | Other (gastric | | 2014 | | GASTROENTEROLOGY | [address] | emptying study) | | | | [address] | [address] | | | | | [address] [place], [place] | [place] | | | | | [address] | [address] | | | | | [phone] | | | +--------+ + + + [...] this encounter Miscellaneous Notes Telephone Encounter - Ashley Spears Master of Arts - 11/07/2014 9:51 AM PSTRachel ca lled and said she would like her gastric emptying study done at [facility]. Will fax the o rder there. She will call to schedule. elephone Encounter - Martha Zuluaga - 11/07/2014 9:35 AM PSTPatient was calling Arleen back. She had some questions she would like to ask, but she di d not specify to me what those questions were. Please advise. documented in this encounter Plan of Treatment +--------+---------+ + + + | Date | Type | Specialty | Care Team | Description | +--------+---------+ + + + | 06/11/ | Office | Neurology | Miguelito, | | | 2019 | Visit | | [address] | | | | | [address] [place], | | | | | | [place] [address] | | | | | | [phone] | | | | | | | | +--------+---------+ + + + documented as of this encounter Visit Diagnoses Not on filedocumented in this encounter"
--- OUTSIDE RECORDS SUMMARY | ~2020-05-13 | XMS | Encounter Summary ---
Demographics + + + | Address | [address] | | | [place] [address] | + + + | Home Phone | | + + + | Preferred Language | Unknown | + + + | Marital Status | | + + + | Sikhism Affiliation | Unknown | + + + | Race | Black or | + + + | Ethnic Group | Not or | + + + Author + + + | Author | [facility] | | | and [place] | + + + | Organization | [facility] | | | and [place] | + + + | Address | Unknown | + + + | Phone | Unavailable | + + + Care Team Providers + +------+ + | Care Fruit And Vegetable Packer Name | Role | Phone | + +------+ + | Xiomara Gloria PA-C | PCP | | + +------+ + Reason for Visit Auth/Cert +--------+--------+ + + + + | Status | Reason | Specialty | Diagnoses / | Referred By | Referred To | | | | | Procedures | Contact | Contact | +--------+--------+ + + + + | Closed | | | Diagnoses | | | | | | | | | | | | | | Gastroesopha | | | | | | | geal reflux | | | | | | | disease with | | | | | | | esophagitis | | | | | | | | | | | | | | Flatulence, | | | | | | | eructation, | | | | | | | and gas pain | | | | | | | | | | | | | | Flatulence, | | | | | | | eructation, | | | | | | | and gas pain | | | | | | | | | | | | | | [787.3]Gastr | | | | | | | oesophageal | | | | | | | reflux | | | | | | | disease with | | | | | | | esophagitis | | | | | | | [530.11] | | | | | | | Procedures | | | | | | | EGD | | | | | | | MANOMETRY | | | | | | | ESOPHAGEAL | | | +--------+--------+ + + + + Encounter Details +--------+---------+ + + + | Date | Type | Department | Care Team | Description | +--------+---------+ + + + | 11/27/ | Surgery | [facility] | Waylon Castellano MD | EGD | | 2014 | | [facility] | [address], [place] | | | | | [address] | [address] | | | | | [place] | [id number] | | | | | [address] | | | | | | [phone] | | | +--------+---------+ + + + [...] + + + | Blood Pressure | 108/68 | 11/27/2014 11:00 AM | | | | | PDT | | + + + + + | Pulse | 68 | 11/27/2014 11:00 AM | | | | | PDT | | + + + + + | Temperature | 36.6 C (97.9 F) | 11/27/2014 7:38 AM | | | | | PDT | | + + + + + | Respiratory Rate | 16 | 11/27/2014 11:00 AM | | | | | PDT | | + + + + + | Oxygen Saturation | 98% | 11/27/2014 11:00 AM | | | | | PDT | | + + + + + | Inhaled Oxygen | - | - | | | Concentration | | | | + + + + + | Weight | 68.9 kg (152 lb) | 11/27/2014 7:38 AM | | | | | PDT | | + + + + + | Height | 177.8 cm (5' 10") | 11/27/2014 7:38 AM | | | | | PDT | | + + + + + | Body Mass Index | 21.81 | 11/27/2014 7:38 AM | | | | | PDT | | + + + + + documented in this encounter Medications at Time of Discharge + + + +---------+--------+ + | Medication | Sig | Dispensed | Refills | Start | End Date | | | | | | Date | | + + + +---------+--------+ + | Calcium Carbonate | Take by mouth | | 0 | | | | Antacid (TUMS PO) | Daily. | | | | | + + + +---------+--------+ + | Cetirizine HCl | Take by mouth | | 0 | | | | (ZYRTEC PO) | Daily. | | | | | + + + +---------+--------+ + | Lactobacillus | Take 1 tablet by | | 0 | | | | (ACIDOPHILUS | mouth Daily. | | | | | | PROBIOTIC) TABS | | | | | | + + + +---------+--------+ + | levonorgestrel | 1 Device by | | 0 | | | | (MIRENA) 20 MCG/24HR | Intrauterine route | | | | | | IUD | once. | | | | | + + + +---------+--------+ + | loratadine | Take 10 mg by mouth | | 0 | | | | (CLARITIN) 10 mg | Daily. | | | | | | tablet | | | | | | + + + +---------+--------+ + | Multiple Vitamin | Take 1 tablet by | | 0 | | | | (DAILY VITES) TABS | mouth Daily. | | | | | + + + +---------+--------+ + | Pseudoephedrine | Take by mouth | | 0 | | | | HCl (SUDAFED 12 HOUR | Daily. | | | | | | PO) | | | | | | + + + +---------+--------+ + | traZODone | Take 50 mg by mouth | | 0 | | | | (DESYREL) 100 mg | nightly. | | | | | | tablet | | | | | | + + + +---------+--------+ + documented as of this encounter H&P Notes Waylon Castellano MD - 11/27/2014 9:26 AM PDTPatient has no questions consent forms are sign ed for endoscopy possible biopsy for evaluation of melena possible reflux and chest symptoms probably Brasher 48 hour pH monitoring has been explained to the patient and will proceed wit h the above studies rid Dana bonds ARNP - 11/06/2014 9:39 AM PSTFormatting of this note might be different fr om the original. Lata Brandon is a 34 y.o. female referred by Xiomara Pereyra for evaluation and brit atment of GERD. History of present illness: Patient states that about 2.5 months ago she began to have increased acid reflux. Started o meprazole. She has stopped running due to reflux issues. She feels like there is something s tuck in throat and gagging. Bending and running worsen gagging. She was taking omeprazole 40 mg bid. Has now been switched to pantoprazole. Still getting b urning and pressure in upper esophagus. She has given up chocolate, spicy, and acidic foods. She can have issues with increased pre ssure in upper abdomen that can come with water. Complains of fatigue as well. Has been seen by the Dentist and has told she had 5 cavities. Has a history of one other ca vity in the past. Dentist recommended she follow up with GI to have GERD evaluated. Notes black stools intermittently. This has been an issue for about the last 2.5 months. Allergies Allergen Reactions Sulfamethoxazole-Trimethoprim rash Past Medical History Diagnosis Date GERD (gastroesophageal reflux disease) Allergic rhinitis Endometriosis Past Surgical History Procedure Laterality Date Nasal sinus surgery 2008 Surgery for endometriosis 2004 Colonoscopy 08/14/2009 IMPRESSION: The examined portion of the ileum was normal. The colon is normal ~ [facility] Dr. Tariq Upper gastrointestinal endoscopy 05/11/2009 IMPRESSION: Normal esophagus, Gastric mucosal cbnormality characterized by arythema, Sing le papule with no bleeding, Normal examined duodenum ~ [facility] Dr. Tariq Cholecystectomy 2004 Family History Problem Relation Age of Onset Multiple Sclerosis Mother Breast cancer Maternal Grandmother History Social History Marital Status: Spouse Name: N/A Number of Children: N/A Years of Education: N/A Occupational History Not on file. Social History Main Topics Smoking status: Never Smoker Smokeless tobacco: Never Used Alcohol Use: Not on file Drug Use: Not on file Sexual Activity: Not on file Other Topics Concern Not on file Social History Narrative Review of systems: Constitutional:Denies any fevers, chills, or unintentional weight loss. Eyes:.Denies using glaucoma eye drops. Denies dry, burning, painful eyes Respiratory:Complains of constant coughing. Denies shortness of breath or wheezing. Gastrointestinal:Complains of constipation, black stools, heartburn, abdominal pain, and dy sphagia. Denies diarrhea, bloody stools, hematemesis, nausea and vomiting, or hemorrhoids. Skin: Denies rashes. Neurological:Complains of numbness and tingling. Denies memory difficulties, muscle weaknes s, paralysis of arms or legs, epilepsy or seizure, or frequent bothersome and headaches ENT:Complains of constantly runny nose. Denies hearing loss, hearing aids, hearing ringing or buzzing in ears, nasal obstruction, hayfever, dentures, or hoarseness. Cardiovascular:Complains of chest pressure. Denies heart palpitations or bothersome ankle s welling. :Denies painful urination, urine incontinence, waking up on average more than once per ni ght to urinate, bloody urine, or impotence. Musculoskeletal:Denies swollen joints, painful back, or painful joints. Psychiatric:Complains of depression. Denies anxiety. Endocrine:Denies enlarged thyroid Heme/lymph:Denies anemia or enlarged lymph glands. Physical exam: General: well developed, well nourished, in no acute distress. Head: normocephalic and atraumatic Eyes: Sclera clear Mouth: MMM Lungs: Clear to auscultate bilaterally and throughout Heart: regular rate and rhythm Abdomen: Soft, non tender, non distended, bowel tones positive times 4 quadrants, negative Haley y's sign, negative rebound tenderness, no guarding, no hepatosplenomegaly palpated. Msk: symmetrical with no deformity, with normal posture and gait, normal strength. Extremities: no clubbing, cyanosis, edema, or deformity noted Neurologic: no focal deficits, cranial nerves II-XII grossly intact Skin: intact without lesions or rashes. Psych: alert and cooperative; normal mood and affect; normal attention span and concentration. Abstract on 11/01/2014 Component Date Value Range Status Colonoscopy Impression, External 05/11/2009 IMPRESSION: The examined portion of the ile um was normal. The colon is normal ~ [facility] Dr. Tariq Final Creatinine, External 05/12/2014 0.82 0.6 - 1.35 Final eGFR, External 05/12/2014 >60 60 - [id number] Final TSH, External 05/12/2014 2.84 0.27 - 4.2 Final WBC, External 05/12/2014 4.9 4.5 - 11 Final HGB, External 05/12/2014 13.3 12 - 16 Final HCT, External 05/12/2014 39.9 35 - 45 Final PLT, External 05/12/2014 161 140 - 440 Final Neutrophils %, External 05/12/2014 55.4 39 - 80 Final Lymphocytes %, External 05/12/2014 32.3 24 - 44 Final Monocytes %, External 05/12/2014 8.7 0 - 12 Final Eosinophils %, External 05/12/2014 2.7 0 - 6 Final RBC, External 05/12/2014 4.38 3.8 - 5.1 Final MCV, External 05/12/2014 91 81 - 99 Final RDW, External 05/12/2014 13.3 10.5 - 15 Final Sodium, External 05/12/2014 137 132 - 143 Final Potassium, External 05/12/2014 3.7 3.6 - 5.1 Final Chloride, External 05/12/2014 105 95 - 112 Final Carbon Dioxide, External 05/12/2014 28 19 - 31 Final Calcium, External 05/12/2014 9.4 6.4 - 10.2 Final Protein, Total, External 05/12/2014 7.1 6 - 8 Final Albumin, External 05/12/2014 4.6 3.5 - 5 Final Bilirubin, Total, External 05/12/2014 1.2 0 - 1.2 Final ALP, External 05/12/2014 58 30 - 128 Final AST, External 05/12/2014 21 13 - 39 Final ALT, External 05/12/2014 26 7 - 52 Final Glucose, External 05/12/2014 63* 70 - 100 Final BUN, External 05/12/2014 9 6 - 23 Final MCH 05/12/2014 30.0 Final MCHC 05/12/2014 33.0 Final ANION GAP 05/12/2014 8 Final BUN/Creatinine Ratio 05/12/2014 11.0 Final Globulin 05/12/2014 2.5 Final Albumin/Globulin Ratio 05/12/2014 1.8 Final COSMO 05/12/2014 <1:40 Final COSMO.NUCLEOLAR PATTERN 05/12/2014 N/A Final dsDNA Ab Titer 05/12/2014 Non Detected Final FISHER ANTIBODY 05/12/2014 4.6 Final Ribosomal P Autoantibody 05/12/2014 1.1 Final SJOGREN'S AB 05/12/2014 4.5 Final "A" SJOGREN'S AB 05/12/2014 2.3 Final "B" CENTROMERE AB SCREEN 05/12/2014 Non Detected Final Scleroderma SCL-70 05/12/2014 1.2 Final RHEUMATOID FACTOR 05/12/2014 <10 Final CRP 05/12/2014 5 Final <5 Complement C3, Body Fluid 05/12/2014 102.9 Final Complement C4, Body Fluid 05/12/2014 27.5 Final SWAPNA-1 autoantibody IgG 05/12/2014 2.0 Final Histone Ab 05/12/2014 0 100 U/mL Final H PYLORI IGG 05/19/2014 0.502 Final Upper GI Series x-ray 10/03/2014: Impression: Moderate gastroesophageal reflux, otherwise negative exam. Assessment: 1. GERD (gastroesophageal reflux disease) NM Gastric Emptying Ambulatory referral to Gastroenterology [facility] 2. Abdominal bloating NM Gastric Emptying Ambulatory referral to Gastroenterology [facility] 3. Dysphagia Plan: Patient to have EGD with BRASHER for further evaluation.The procedural techniques, risks, ind ications, and alternatives were discussed. Among the risks, are perforation, bleeding, infe ction, allergic/adverse reactions to medications, and cardiovascular complications. Each of these could result in hospitalization, additional procedures (including surgery), or other life threatening complications. Patient verbalized understanding.Patient to call with any q uestions or concerns prior to procedure. Recommend manometry to check for esophageal motility issues. Patient to have gastric emptying study to check for motility issues. Stop pantoprazole due to upset in stomach. Given samples of Dexilant 60 mg daily. Will follow up with results. Patient is to call with any question or concerns. Any fevers, chills, chest pain, SOB or other serious symptoms patient is to call the office or go to ER . Cc: Xiomara Pereyra This note was dictated using voice recognition software. Please contact me if there are an y questions regarding its content. documented in t his encounter Procedure Notes Arabella Holley RN - 11/27/2014 8:59 AM PDTProcedure(s): MANOMETRY ESOPHAGEALPre-Proce dure Diagnose(s): Globus hystericusMANOMETRY STUDY COMPLETED W/O DIFFICULTYElectronically si gned by Arabella Holley RN at 11/27/2014 9:00 AM PDTdocumented in this encounter Miscellaneous Notes Op Note - Waylon Castellano MD - 12/05/2014 6:45 AM PDT48 hour brasher pH study Lata Brandon 84 DeMaster score day 1;17.6 normal less than 14.72. Day 2; 8.7. Total score of 13.7 (normal ) Multiple episodes of brief less than 5 minutes of pH less than 4 in the upright position,50 % postprandially. Symptom complex score: heartburn 7/ 12 positive for pH less than 4: chest pain 0/1 pH less than 4, multiple episodes of regurgitation recorded by the patient with inconsistent finding s of pH less than 4 recorded. Normal study with the exception of frequent episodes of regurgitation recorded by the patie nt with no evidence for persistent acid reflux edation Documentation - Vicky Orellana RN - 11/27/2014 9:39 AM PDTBRAVO CAPSULE PLACED LOT# [id number] ID# [id number] WITHOUT DIFFICULTY documented in this encounter Plan of Treatment +--------+---------+ + + + | Date | Type | Specialty | Care Team | Description | +--------+---------+ + + + | 06/11/ | Office | Neurology | Miguelito, | | | 2019 | Visit | | [address] | | | | | | [address] [facility], | | | | | | [place] [address] | | | | | | [phone] | | | | | | | | +--------+---------+ + + + documented as of this encounter Procedures + +--------+ + + + | Procedure Name | Priori | Date/Time | Associated Diagnosis | Comments | | | ty | | | | + +--------+ + + + | PATHOLOGY - EXTERNAL | | 11/29/2014 | | | | SCAN | | 12:00 AM | | | | | | PDT | | | + +--------+ + + + | HELICOBACTER PYLORI | Routin | 11/27/2014 | | Results for this | | BIOPSY | e | 12:54 PM | | procedure are in the | | | | PDT | | results section. | + +--------+ + + + | MANOMETRY ESOPHAGEAL | | 11/27/2014 | Gastroesophageal | | | | | 9:24 AM | reflux disease with | | | | | PDT | esophagitis | | | | | | Flatulence, | | | | | | eructation, and gas | | | | | | pain | | + +--------+ + + + | EGD | | 11/27/2014 | Gastroesophageal | | | | | 9:24 AM | reflux disease with | | | | | PDT | esophagitis | | | | | | Flatulence, | | | | | | eructation, and gas | | | | | | pain | | + +--------+ + + + | ENDOSCOPY, GI W/ | Routin | 11/27/2014 | | | | CAPSULE | e | 9:24 AM | | | | | | PDT | | | + +--------+ + + + | EGD | Routin | 11/27/2014 | | Results for this | | | e | 9:24 AM | | procedure are in the | | | | PDT | | results section. | + +--------+ + + + | PATHOLOGY - EXTERNAL | | 11/27/2014 | | | | SCAN | | 12:00 AM | | | | | | PDT | | | + +--------+ + + + | DIAGNOSTIC REPORT - | | 11/27/2014 | | | | EXTERNAL SCAN | | 12:00 AM | | | | | | PDT | | | + +--------+ + + + | SURGICAL PATHOLOGY | Routin | 11/27/2014 | | Results for this | | EXAM | e | 12:00 AM | | procedure are in the | | | | PDT | | results section. | + +--------+ + + + documented in this encounter Results Helicobactor pylori Biopsy (11/27/2014 12:54 PM PDT) + + + + + + | Component | Value | Ref Range | Performed | Pathologist | | | | | At | Signature | + + + + + + | Helicobacte | Negative | Negative | [facility] | | | r pylori [facility] | | | [facility] - | | | | | | [facility]ORATORY | | + + + + + + + + | Specimen | + + | Tissue - Entire | | pyloric antrum (body | | structure) | + + + + + + + | Performing | Address | City/State/Zipcode | Phone Number | | Organization | | | | + + + + + | [facility] | [address] | [place], [place] | [phone] | | [facility] | | [address] | | | - LABORATORY | | | | + + + + + | [facility] | [address] | [place], [place] | | | [facility] | | [id number] [place] [address] | | | - LABORATORY | | | | + + + + + EGD (11/27/2014 9:24 AM PDT) + + | Specimen | + + | | + + + + + | Narrative | Performed At | + + + | Gastroenterology Patient Name: Lata Brandon Procedure Date: | [facility] | | 11/27/2014 9:24 AM Date of | [facility] | | : 1980 Admit Type: Ambulatory Age: 34 Room: Endo Room 1 | | | Gender: Female Note Status: Finalized Attending MD: Waylon Castellano, | | | MD Procedure: Upper GI endoscopy Indications: | | | Suspected esophageal reflux, For therapy of esophageal | | | reflux Providers: Waylon Castellano MD, | | | Vicky Orellana RN, Cleo Bentley | | | Mary, Shooter Helper Referring MD: ERICA Avalos | | | (Referring MD) Medicines: Midazolam 5 mg IV, Meperidine | | | 100 mg IV, Cetacaine spray, Oxygen 4 | | | liters/min nasocannula Complications: No immediate | | | complications. Estimated blood loss: Minimal. Procedure: | | | Pre-Anesthesia Assessment: - Prior to the procedure, a History | | | and Physical was performed, and patient medications, | | | allergies and sensitivities were reviewed. The patient's | | | tolerance of previous anesthesia was reviewed. - Prior to the | | | procedure, a History and Physical was performed, and patient | | | medications and allergies were reviewed. The patient is | | | competent. The risks and benefits of the procedure and the sedation | | | options and risks were discussed with the patient. All | | | questions were answered and informed consent was obtained. | | | Patient identification and proposed procedure were verified | | | by the physician, the nurse and the home appliance technician in the | | | endoscopy suite. Mental Status Examination: alert and | | | oriented. Airway Examination: normal oropharyngeal airway and neck | | | mobility and Mallampati Class II (the uvula but not tonsillar | | | pillars visualized). Prophylactic Antibiotics: The patient | | | does not require prophylactic antibiotics. Prior | | | Anticoagulants: The patient has taken no previous | | | anticoagulant or antiplatelet agents. ASA Grade Assessment: II | | | - A patient with mild systemic disease. After reviewing the risks | | | and benefits, the patient was deemed in satisfactory | | | condition to undergo the procedure. The anesthesia plan was | | | to use moderate sedation / analgesia (conscious sedation). | | | Immediately prior to administration of medications, the | | | patient was re-assessed for adequacy to receive sedatives. | | | The heart rate, respiratory rate, oxygen saturations, blood | | | pressure, adequacy of pulmonary ventilation, and response to care were | | | monitored throughout the procedure. The physical status of | | | the patient was re-assessed after the procedure. - | | | After reviewing the risks and benefits, the patient was deemed in | | | satisfactory condition to undergo the procedure. - The | | | anesthesia plan was to use moderate sedation/analgesia (conscious | | | sedation). - Immediately prior to administration of | | | medications, the patient was re-assessed for adequacy to | | | receive sedatives. - The heart rate, respiratory rate, oxygen | | | saturations, blood pressure, adequacy of pulmonary | | | ventilation, and response to care were monitored throughout | | | the procedure. - The physical status of the patient was | | | re-assessed after the procedure. After obtaining informed | | | consent, the endoscope was passed under direct vision. | | | Throughout the procedure, the patient's blood pressure, pulse, | | | and oxygen saturations were monitored continuously. The endoscope | | | was introduced through the mouth, and advanced to the third | | | part of duodenum. The upper GI endoscopy was accomplished | | | without difficulty. The patient tolerated the procedure well. | | | Findings: The cricopharyngeus, upper third of the esophagus, | | | middle third of the esophagus, lower third of the esophagus | | | and gastroesophageal junction were normal. Biopsies were | | | taken with a cold forceps for histology. Verification of | | | patient identification for the specimen was done. Estimated | | | blood loss was minimal. The Z-line was regular and was found | | | 42 cm from the incisors. Biopsies were taken with a cold | | | forceps for histology. Verification of patient identification | | | for the specimen was done. Estimated blood loss was minimal. | | | A lax lower esophageal sphincter was found. The Cloakroom capsule | | | with delivery system was introduced through the mouth and | | | advanced into the esophagus, such that the BRASHER pH capsule | | | was positioned 40 cm from the incisors, which was 2 cm | | | proximal to the EG junction. The BRASHER pH capsule was then | | | deployed and attached to the esophageal mucosa. The delivery | | | system was then withdrawn. Endoscopy was utilized for probe | | | placement and diagnostic evaluation. Suspect gastroparesis due | | | to absence of peristalsis. A few dispersed, small | | | non-bleeding erosions were found on the greater curvature of | | | the stomach. There were no stigmata of recent bleeding. | | | Biopsies were taken with a cold forceps for Helicobacter pylori | | | testing using CLOtest. Verification of patient identification | | | for the specimen was done. Estimated blood loss was minimal. | | | The duodenal bulb, first part of the duodenum, 2nd part of | | | the duodenum, area of the papilla and 3rd part of the | | | duodenum were normal. The retroflexed view confirmed previous | | | findings, Impression: - Normal cricopharyngeus, upper third | | | of esophagus, middle third of esophagus, lower third of | | | esophagus and gastroesophageal junction. Biopsied. - | | | Z-line regular, 42 cm from the incisors. Biopsied. - Lax lower | | | esophageal sphincter. - Gastroparesis. - Non-bleeding | | | erosive gastropathy. Biopsied. - Normal duodenal bulb, first | | | part of the duodenum, 2nd part of the duodenum, area of the | | | papilla and 3rd part of the duodenum. - The retroflexed view | | | confirmed previous findings, - The BRASHER pH capsule was | | | deployed. Recommendation: - Discharge patient to home | | | (ambulatory). - Return to previous diet today. - | | | Follow an antireflux regimen indefinitely. - Await pathology | | | results. - Return to primary care physician as previously | | | scheduled. - Telephone GI clinic for pathology results in 1 | | | week. Waylon Castellano MD 11/27/2014 9:53 AM This report has been | | | signed electronically. Number of Addenda: 0 Note Initiated On: | | | 11/27/2014 9:24 AM Scope Withdrawal Time: 0 hours 0 minutes 0 seconds | | | Total Procedure Duration: 0 hours 7 minutes 52 seconds Scope In: | | | 9:33:43 AM Scope Out: 9:41:35 AM [facility] | | | Center, [address] [place] [address] | | + + + + +---------+ + + | Performing | Address | City/State/Zipcode | Phone Number | | Organization | | | | + +---------+ + + | [facility] | | | | + +---------+ + + Surgical Pathology Exam (11/27/2014 12:00 AM PDT) + + | Specimen | + + | | + + + + + | Narrative | Performed At | + + + | SPECIMEN(S): A DISTAL ESOPHAGEAL BIOPSY SPECIMEN SOURCE: [facility] | | DISTAL ESOPHAGEAL BIOPSY CLINICAL HISTORY: 530.11 (reflux | INCYTE | | esophagitis), 787.3 (flatulence, eructation and gas pain) | | | MICROSCOPIC DESCRIPTION: Histologic sections of all submitted blocks | | | are examined by light microscopy. These findings, together with the | | | gross examination, support the pathologic diagnosis. An Alcian | | | blue / PAS stained section is performed with appropriate positive and | | | negative controls and is negative for specialized intestinal | | | metaplasia. JVR:[facility] FINAL PATHOLOGIC DIAGNOSIS: Distal esophagus | | | biopsy: - Gastroesophageal junction, negative for specialized | | | intestinal metaplasia. - Negative for significant pathologic | | | inflammation or atypical features. VR:[facility]:[id number] GROSS | | | DESCRIPTION: Received in formalin labeled "Lata Brandon, distal | | | esophageal bx" are multiple patel-white tissue fragments measuring 0.4 | | | cm in greatest dimension, completely submitted in (A1). jf:[facility] | | | PERFORMING LABORATORY: Tissue processing and slide preparation were | | | performed by [facility], [address], [address], [facility] | | | [place] [address] (Tipping Machine Operator: Kai Mathews M.D. CLIA#: | | | [id number]). Professional interpretation was performed by [employer] | | | [place], [facility], [address] | | | [place] [address] (Tipping Machine Operator: Kai Mathews M.D.; | | | CLIA#: [id number]). Diagnostician: Kai Mathews MD | | | Pathologist Electronically Signed 11/28/2014 | | + + + + +---------+ + + | Performing | Address | City/State/Zipcode | Phone Number | | Organization | | | | + +---------+ + + | [facility] | | | | | [place] | | | | + +---------+ + + documented in this encounter Visit Diagnoses + + | Diagnosis | + + | Gastroesophageal reflux disease with esophagitis | + + | Flatulence, eructation, and gas pain | + + documented in this encounter Administered Medications + +--------+ +---------+------+------+ | Medication Order | MAR | Action | Dose | Rate | Site | | | Action | Date | | | | + +--------+ +---------+------+------+ | [id number]-[id number] | Given | 11/28/19 | 1 spray | | | | (CETACAINE) spray PRN, Starting | | 15 9:28 | | | | | 11/27/14 at 0928 | | AM PDT | | | | + +--------+ +---------+------+------+ +---+---+ | | | +---+---+ + +---------+ +---+ +---+ | lactated ringers (LR) infusion | New Bag | 11/28/19 | | 50 mL/hr | | | at 100 mL/hr, Intravenous, | | 15 8:57 | | | | | CONTINUOUS, Starting 11/27/14 | | AM PDT | | | | | at 0000, Pre-op | | | | | | + +---------+ +---+ +---+ +---+---+ | | | +---+---+ + +-------+ +------+---+---+ | midazolam (VERSED) 5 mg/mL | Given | 11/28/19 | 1 mg | | | | injection PRN, Starting Mon | | 15 9:39 | | | | | 11/27/14 at 0932 | | AM PDT | | | | + +-------+ +------+---+---+ +-------+ +------+---+---+ | Given | 11/28/19 | 1 mg | | | | | 15 9:35 | | | | | | AM PDT | | | | +-------+ +------+---+---+ | Given | 11/28/19 | 1 mg | | | | | 15 9:34 | | | | | | AM PDT | | | | +-------+ +------+---+---+ +---+---+ | | | +---+---+ documented in this encounter
--- OUTSIDE RECORDS SUMMARY | ~2020-05-13 | XMS | Encounter Summary ---
Demographics + + + | Address | [address] | | | [place] [address] | + + + | Home Phone | | + + + | Preferred Language | Unknown | + + + | Marital Status | | + + + | Amish Affiliation | Unknown | + + + | Race | Black or | + + + | Ethnic Group | Not or | + + + Author + + + | Author | [facility] | | | and [place] | + + + | Organization | [facility] | | | and [place] | + + + | Address | Unknown | + + + | Phone | Unavailable | + + + Care Team Providers + +------+ + | Care Human Resources Technician Name | Role | Phone | + [...] +--------+--------+ + + + + Encounter Details +--------+ + + + + | Date | Type | Department | Care Team | Description | +--------+ + + + + | 11/27/ | Hospital | [facility] | Waylon Castellano MD | Dysphagia, | | 2014 | Encounter | [facility] | [address], [place] | unspecified(787.20); | | | | [address] | [address] | GERD | | | | [place] | [address] | (gastroesophageal | | | | [address] | | reflux disease) | | | | [phone] | | | +--------+ + + + [...] was normal. The colon is normal ~ [facility] Dr. Tariq Upper gastrointestinal endoscopy 05/11/2009 IMPRESSION: Normal esophagus, Gastric mucosal cbnormality characterized by arythema, Sing le papule with no bleeding, Normal examined duodenum ~ [facility] Dr. Tariq Cholecystectomy 2004 Family [...] was normal. The colon is normal ~ [facility] Dr. Tariq Final Creatinine, External 05/12/2014 0.82 0.6 - 1.35 Final eGFR, External 05/12/2014 >60 60 - 187002 Final TSH, External 05/12/2014 2.84 0.27 - [...] NM Gastric Emptying Ambulatory referral to Gastroenterology [facility] 2. Abdominal bloating NM Gastric Emptying Ambulatory referral to Gastroenterology [facility] 3. Dysphagia Plan: Patient to have EGD [...] in t his encounter Procedure Notes Arabella Holley, RN - 11/27/2014 8:59 AM PDTProcedure(s): MANOMETRY [...] 11/27/2014 9:39 AM PDTBRAVO CAPSULE PLACED LOT# [id number] ID# [id number] WITHOUT DIFFICULTY documented in this [...] | | | | | | [place] [address] | | | | | | [phone] | | | | | | | [...] | + + + + + | [facility] [address] | [address] | [place], [place] | [phone] | | [facility] | | [address] | | | - LABORATORY | | | | + + + + + | [facility] | [address] | [place], [place] | | | [facility] | | [address], [facility] [[email or web address]] | | | - LABORATORY | | [...] RN, Cleo Bentley | | | Mary, Pocket Maker Referring MD: ERICA Avalos | | | [...] by the physician, the nurse and the quality technician in the | | | endoscopy [...] lax lower esophageal sphincter was found. The BRASHER capsule | | | with delivery system [...] results in 1 | | | week. aWylon Castellano MD 11/27/2014 9:53 AM This report has been | | | signed electronically. Number of Addenda: 0 Note Initiated On: | | | 11/27/2014 9:24 AM Scope Withdrawal Time: 0 hours 0 minutes 0 seconds | | | Total Procedure Duration: 0 hours 7 minutes 52 seconds Scope In: | | | 9:33:43 AM Scope Out: 9:41:35 AM [facility] | | | Center, [address] [place] [address] | | + + + + +---------+ [...] SPECIMEN(S): A DISTAL ESOPHAGEAL BIOPSY SPECIMEN SOURCE: [facility] | | DISTAL ESOPHAGEAL BIOPSY CLINICAL [...] for specialized intestinal | | | metaplasia. JVR:[facility] FINAL PATHOLOGIC DIAGNOSIS: Distal esophagus | | | biopsy: - Gastroesophageal junction, negative for specialized | | | intestinal metaplasia. - Negative for significant pathologic | | | inflammation or atypical features. JVR:[facility] GROSS | | | DESCRIPTION: Received in formalin labeled "Lata Brandon, distal | | | esophageal bx" are multiple patel-white tissue fragments measuring 0.4 | | | cm in greatest dimension, completely submitted in (A1). jf:[facility] | | | PERFORMING LABORATORY: Tissue processing and slide preparation were | | | performed by [facility], [address] [place] [address] [address] | | | [place] [address] (Pulp Mill Team Leader: Kai Mathews M.D. CLIA#: | | | [id number]). Professional interpretation was performed by [facility] | | | [facility], [facility], [address] | | [address] [place] [address] (Pulp Mill Team Leader: Kai Mathews M.D.; | | | SATISH#: [id number]). Diagnostician: Kai Mathews MD | | | [...] + | Diagnosis | + + | Dysphagia, unspecified(787.20) Dysphagia, unspecified | + + | GERD (gastroesophageal reflux disease) Esophageal reflux | + + | Abdominal bloating Flatulence, eructation, and gas pain | + + documented in this encounter Administered Medications + +--------+ +---------+------+------+ | Medication Order | MAR | Action | Dose | Rate | Site | | | Action | Date | | | | + +--------+ +---------+------+------+ | [id number]-pkwqrhjlxn-hnuggqvpnu | Given | 11/28/19 | 1 spray [...]
--- OUTSIDE RECORDS SUMMARY | ~2020-05-13 | XMS | Clinical Summary ---
Demographics + + + | Address | [address] | | | [place] [address] | + + + | Home Phone | | + + + | Preferred Language | Unknown | + + + | Marital Status | | + + + | Catholic Affiliation | Unknown | + + + | Race | Black or | + + + | Ethnic Group | Not or | + + + Author + + + | Author | [facility] | | | and [place] | + + + | Organization | [facility] | | | and [place] | + + + | Address | Unknown | + + + | Phone | Unavailable | + + + Care Team Providers + +------+ + | Care Registered Nurse Obstetrics Name | Role | Phone | + +------+ + | Xiomara Gloria PA-C | PCP | | + +------+ + Allergies + + [...] + + + + | Sulfamethoxazole-Tri | Rash, Hives | High | 05/11/20 | | | methoprim | | | 12 | | + + + + + + Medications + + + +---------+------+------+-------+ | Medication | Sig | Dispensed | Refills | Star | End | Statu | | | | | | t | Date | s | | | | | | Date | | | + + + +---------+------+------+-------+ | Lactobacillus | Take 1 tablet by | | 0 | | | Activ | | (ACIDOPHILUS | mouth Daily. | | | | | e | | PROBIOTIC) TABS | | | | | | | + + + +---------+------+------+-------+ | loratadine | Take 10 mg by mouth | | 0 | | | Activ | | (CLARITIN) 10 mg | Daily. | | | | | e | | tablet | | | | | | | + + + +---------+------+------+-------+ | Multiple Vitamin | Take 1 tablet by | | 0 | | | Activ | | (DAILY VITES) TABS | mouth Daily. | | | | | e | + + + +---------+------+------+-------+ | traZODone | Take 50 mg by mouth | | 0 | | | Activ | | (DESYREL) 100 mg | nightly. | | | | | e | | tablet | | | | | | | + + + +---------+------+------+-------+ | levonorgestrel | 1 Device by | | 0 | | | Activ | | (MIRENA) 20 MCG/24HR | Intrauterine route | | | | | e | | IUD | once. | | | | | | + + + +---------+------+------+-------+ | Cetirizine HCl | Take by mouth | | 0 | | | Activ | | (ZYRTEC PO) | Daily. | | | | | e | + + + +---------+------+------+-------+ | Pseudoephedrine | Take by mouth | | 0 | | | Activ | | HCl (SUDAFED 12 HOUR | Daily. | | | | | e | | PO) | | | | | | | + + + +---------+------+------+-------+ | Calcium Carbonate | Take by mouth | | 0 | | | Activ | | Antacid (TUMS PO) | Daily. | | | | | e | + + + +---------+------+------+-------+ | pantoprazole | Take 20 mg by mouth | | 0 | | | Activ | | (PROTONIX) 20 mg | 2 times daily | | | | | e | | tablet | (before meals). | | | | | | + + + +---------+------+------+-------+ | PROBIOTIC PRODUCT | Take by mouth. | | 0 | | | Activ | | PO | | | | | | e | + + + +---------+------+------+-------+ | albuterol 90 | | | 0 | 12/1 | | Activ | | mcg/puff inhaler | | | | 6/20 | | e | | | | | | 19 | | | + + + +---------+------+------+-------+ | albuterol 2.5 mg/3 | | | 0 | 12/1 | | Activ | | mL nebulizer | | | | 6/20 | | e | | solution | | | | 19 | | | + + + +---------+------+------+-------+ | fluticasone | 1 spray by Nasal | | 0 | | | Activ | | (FLONASE) 50 | route. | | | | | e | | mcg/nasal spray | | | | | | | + + + +---------+------+------+-------+ | omeprazole | Take 20 mg by mouth. | | 0 | | | Activ | | (PRILOSEC) 20 mg | | | | | | e | | capsule | | | | | | | + + + +---------+------+------+-------+ | topiramate | 1/2 tablet at | | 0 | 02/1 | | Activ | | (TOPAMAX) 25 mg | bedtime. Increase | | | 05/10 | | e | | tablet | slowly as directed | | | 20 | | | | | by Dr Paulson up to 4 | | | | | | | | tablets at bedtime. | | | | | | + + + +---------+------+------+-------+ | fish oil 1,000 mg | Take 1,000 mg by | | 0 | | | Activ | | capsule | mouth 3 times daily. | | | | | e | + + + +---------+------+------+-------+ | ascorbic acid | Chew and swallow 500 | | 0 | | | Activ | | (VITAMIN C) 500 mg | mg Daily. | | | | | e | | chewable tablet | | | | | | | + + + +---------+------+------+-------+ | ferrous sulfate | Take 325 mg by mouth | | 0 | | | Activ | | 325 mg tablet | daily (with | | | | | e | | | breakfast). | | | | | | + + + +---------+------+------+-------+ | UNABLE TO FIND | Med Name: Xzyal | | 0 | | | Activ | | | | | | | | e | + + + +---------+------+------+-------+ | eletriptan | Take one tab at | 20 | 2 | 05/0 | | Activ | | (RELPAX) 40 mg | onset if migraine | tablet | | 8/20 | | e | | tablet | and can repeat in 45 | | | 20 | | | | | mis up to 2 per day | | | | | | + + + +---------+------+------+-------+ Active Problems + + + | Problem | Noted Date | + + + | Intractable migraine without aura and without status migrainosus | 01/25/2020 | + + + | Dysphagia, unspecified(787.20) | 11/24/2014 | + + + + + | Overview: ICD-10 Record update | + + + + + | GERD (gastroesophageal reflux disease) | 11/24/2014 | + + + | Abdominal bloating | 11/24/2014 | + + + Family History + + + + + | Medical History | Relation | Name | Comments | + + + + + | Breast cancer | Maternal | | | | | Grandmoth | | | | | er | | | + + + + + | Cancer | Maternal | | Melanoma of the skin | | | Grandmoth | | | | | er | | | + + + + + | Cancer | Mother | | | + + + + + | Multiple sclerosis | Mother | | | + + + + + | Cancer | Other | Maternal | | | | | Great | | | | | Grandmot | | | | | h | | + + + + + + + +--------+ + | Relation | Name | Status | Comments | + + +--------+ + | Father | | Other | adopted | + + +--------+ + | Maternal Grandmother | | | | + + +--------+ + | Mother | | Alive | | + + +--------+ + | [...] | 37.3 C (99.2 F) | 11/15/2015 3:33 PM | | | | | PST | | + + + + + [...] + + + + Plan of Treatment +--------+---------+ + + + | Date | Type | Specialty | Care Team | Description | +--------+---------+ + + + | 06/11/ | Office | Neurology | [place], | | | 2019 | Visit | | [address] | | | | | [address] [facility], | | | | | | [place] [address] | | | | | | [phone] | | | | | | | | +--------+---------+ + + + + + + + + | Health Maintenance | Due Date | Last | Comments | | | | Done | | + + + + + | Hepatitis C | | | | | Screening | 2 | | | + + + + + | Medication | | | | | Management | 2 | | | + + + + + | Vaccine: | | | | | Dtap/Tdap/Td (1 - | 1 | | | | Tdap) | | | | + + + + + | Cervical Cancer | | | | | Screening (Pap) | 2 | | | + + + + + | Med Mgmt: Cr | | 05/12/20 | | | | 5 | 14, | | | | | 05/12/20 | | | | | 14 | | + + + + + | Med Mgmt: eGFR | | 05/12/20 | | | | 5 | 14, | | | | | 05/12/20 | | | | | 14 | | + + + + + | Vaccine: Influenza | | 06/27/20 | | | (#1) | 0 | 15, | | | | | 06/26/20 | | | | | 11 | | + + + + + [...] + +------+ | MODA | MODA | [id number] | | [phone] | [address] | PPO | | | HEALTH | | [phone] | | | | | | [address] | | [place], | | | | [place] | | | | [place] [address] | | | | [place] | | | | | | +-------+--------+ +--------+ + +------+ + +--------+ +--------+ + + | Guarantor Name | Accoun | Relation to | Date | Phone | Billing Address | | | t Type | Patient | of | | | | | | | | | | + +--------+ +--------+ + + | Lata Brandon | Person | Self [birth year] | [address] | | | al/Fam | | 1980 | [phone] | [place] [address] | | | james | | | 4 (Home) | | | | | | | [phone] | | | | | | | 2 (Work) | | + +--------+ +--------+ + + | Lata Brandon | Person | Self | [birth year] | [address] | | | al/Fam | | 1980 | [phone] | [place] [address] | | | james | | | 4 (Home) | | | | | | | [phone] | | | | | | | 2 (Work) | | + +--------+ +--------+ + + Advance Directives + + + + + | Type | Date Recorded | Patient | Explanation | | | | Compensation Director | | + + + + + | Power of | | | | | Communication Manager | | | | + + + + + | Advance | 11/27/2014 7:27 | | | | Directive | AM | | | + + + + +
--- OUTSIDE RECORDS SUMMARY | ~2020-05-13 | XMS | Encounter Summary ---
Demographics + + + | Address | [address] | | | [place] [address] | + + + | Home Phone [...] Author + + + | Author | [facility] | | | and [place] | + + + | Organization | [facility] | | | and [place] | + + + | Address | Unknown | + + + | Phone | Unavailable | + + + Care Team Providers + +------+ + | Care Steamboat Inspector Name | Role | Phone | + +------+ + | Xiomara Gloria PA-C | PCP | | + +------+ + Reason for Visit +--------+--------+ + | Reason | Onset | Comments | | | Date | | +--------+--------+ + | Other | 02/28/ | | | | 2015 | | +--------+--------+ + Encounter Details +--------+ + + + + | Date | Type | Department | Care Team | Description | +--------+ + + + + | 02/28/ | Telephone | [facility] [place] | [facility], | [facility] | | 2014 | | GASTROENTEROLOGY | [place] [address] | | | | | [address] | [address] | | | | | [address] | [place] | | | | | [phone] | [id number] | | | | | [phone] | | | +--------+ + + + [...] encounter Miscellaneous Notes Telephone Encounter - Ashley Spears, Master of Arts - 02/28/2015 9:50 AM PDTSpoke to Lata, she is having a lot of stomach pain and vomiting and possibly blood in her stool. Sp rebeca to Coni, advised patient that she should go to PCP or urgent Care or ER. Coni will be ou t for the next 2 weeks. She was also offered appointments with the other GI Providers. Broderick nt verbalized understanding.Put her through to scheduling to make an apt when Coni returns.E lectronically signed by Ashley Spears Master of Arts at 02/28/2015 9:56 AM PDTTelephon e Encounter - Tammy Sanchez - 02/28/2015 8:12 AM PDTPatient called in asking to schedule a appointment for this week with a GI, I let her know that there is nothing open this week wit h our GI. She said she has been unable to keep food down and would like to speak with the nu rse. Please give her a call back. A M PDTdocumented in this encounter Plan of Treatment +--------+---------+ + + + | Date | Type | Specialty | Care Team | Description | +--------+---------+ + + + | 06/11/ | Office | Neurology | Miguelito, | | | 2020 | Visit | | [address] | [address] [place], | | | | | | [place] [address] | | | | | | [phone] | | | | | | | | +--------+---------+ + + + documented as of this encounter Visit Diagnoses Not on filedocumented in this encounter"
--- OUTSIDE RECORDS SUMMARY | ~2020-05-13 | XMS | Encounter Summary ---
Demographics + + + | Address | [address] | | | [place] [address] | + + + | Home Phone [...] Author + + + | Author | [facility] | | | and [place] | + + + | Organization | [facility] | | | and [place] | + + + | Address | Unknown | + + + | Phone | Unavailable | + + + Care Team Providers + +------+ + | Care Stitcher Special Machine Name | Role | Phone | + +------+ + | Xiomara Gloria PA-C | PCP | | + +------+ + Reason for Visit + + + | Reason | Comments | + + + | Follow-up | procedures and tests | + + + Evaluate (Routine) +--------+--------+ + + + + | Status | Reason | Specialty | Diagnoses / | Referred By | Referred To | | | | | Procedures | Contact | Contact | +--------+--------+ + + + + | Closed | | Gastroenterol | Diagnoses | | [facility] | | | | ogy | GERD | Juani, | Gastroenterol | | | | | Procedures | Xiomara Pride, | ogy [address] | | | | [address] | [address] | | | | | | [address] | [address] | | | | | | [address] | [place] | | | | | | [place], | [address] | | | | | | [place] | Phone: | | | | | | [address] | [phone] | | | | | | Phone: | Fax: | | | | | | [phone] | [phone] | | | | | | Fax: | | | | | | | [phone] | | +--------+--------+ + + + + Encounter Details +--------+---------+ + + + | Date | Type | Department | Care Team | Description | +--------+---------+ + + + | 12/11/ | Office | [facility] [place] | [place], | Throat clearing | | 2015 | Visit | GASTROENTEROLOGY | [address] | (Primary Dx); | | | | [address] | [address] | Vomiting; | | | | [address] [place], [place] | [place], [place] | Gastroparesis | | | | [address] | [address] | | | | | [phone] | | | +--------+---------+ + + + [...] + + + | Blood Pressure | 110/70 | 12/11/2014 9:02 AM | | | | | PDT | | + + + + + | Pulse | 67 | 12/11/2014 9:02 AM | | | | | PDT | | + + + + + | Temperature | 36.9 C (98.4 F) | 12/11/2014 9:02 AM | | | | | PDT | | + + + + + | Respiratory Rate | 16 | 12/11/2014 9:02 AM | | | | | PDT | | + + + + + | Oxygen Saturation | 99% | 12/11/2014 9:02 AM | | | | | PDT | | + + + + + | Inhaled Oxygen | - | - | | | Concentration | | | | + + + + + | Weight | 68.5 kg (151 lb) | 12/11/2014 9:02 AM | | | | | PDT | | + + + + + | Height | - | - | | + + + + + | Body Mass Index | 21.67 | 11/27/2014 7:38 AM | | | | | PDT | | + + + + + documented in this encounter Progress Notes Dana Baum ARNP - 12/11/2014 9:31 AM PDTFormatting of this note might be differe nt from the original. Lata Brandon is a 34 y.o. female here for followup EGD and manometry study. History of present illness: Patient notes that she continues to vomit at least once per day. Is continuing to have problems with "clearing her throat". She is not losing weight due to vomiting. She is not able to exercise due to worsening pain. Allergies Allergen Reactions Sulfamethoxazole-Trimethoprim Rash Past Medical History Diagnosis Date GERD (gastroesophageal reflux disease) Allergic rhinitis Endometriosis Wears contact lenses Past Surgical History Procedure Laterality Date Nasal sinus surgery 2008 Surgery for endometriosis 2004 Colonoscopy 08/14/2009 IMPRESSION: The examined portion of the ileum was normal. The colon is normal ~ [facility] Dr. Tariq Upper gastrointestinal endoscopy 05/11/2009 IMPRESSION: Normal esophagus, Gastric mucosal cbnormality characterized by arythema, Sing le papule with no bleeding, Normal examined duodenum ~ [facility] Dr. Tariq Cholecystectomy 2004 Upper gastrointestinal endoscopy N/A 11/27/2014 Procedure: EGD; Surgeon: Waylon Castellano MD; Location: [facility] Gastric manometry N/A 11/27/2014 Procedure: MANOMETRY ESOPHAGEAL; Surgeon: Waylon Castellano MD; Location: [facility] Family History Problem Relation Age of Onset Multiple Sclerosis Mother Breast cancer Maternal Grandmother History Social History Marital Status: Spouse Name: N/A Number of Children: N/A Years of Education: N/A Occupational History Not on file. Social History Main Topics Smoking status: Never Smoker Smokeless tobacco: Never Used Alcohol Use: No Drug Use: No Sexual Activity: Not on file Other Topics Concern Not on file Social History Narrative Review of systems: Constitutional:Denies any fevers, chills, or unintentional weight loss. Respiratory:Denies shortness of breath, cough or wheezing. Gastrointestinal:Negative except as stated above. Cardiovascular:Denies chest pain, palpitations, or swelling to legs Physical exam: General: Alert and oriented, NAD Eyes: Sclera clear Mouth: Mucous membranes moist Extremities: No clubbing or edema Skin: Warm, dry, intact. No rashes noted Neuro: Cranial nerves 2-12 grossly intact. Psych: Appropriate mood and affect. EGD 11/27/2014: Impression: - Normal cricopharyngeus, upper third of esophagus, middle third of esophagus, lower third of esophagus and gastroesophageal junction. Biopsied. - Z-line regular, 42 cm from the incisors. Biopsied. - Lax lower esophageal sphincter. - Gastroparesis. - Non-bleeding erosive gastropathy. Biopsied. - Normal duodenal bulb, first part of the duodenum, 2nd part of the duodenum, area of the papilla and 3rd part of the duodenum. - The retroflexed view confirmed previous findings, - The BADILLO pH capsule was deployed. Pathology 11/27/2014: Distal esophagus biopsy: -Gastroesophageal junction, negative for specialized intestinal metaplasia. -Negative for significant pathologic inflammation or atypical features. [place] pH study 11/27/2014: Normal study with the exception of frequent episodes of regurgitation recorded by the patie nt with no evidence of persistent acid reflux. Admission on 11/27/2014, Discharged on 11/27/2014 Component Date Value Range Status Helicobacter pylori Ag 11/27/2014 Negative Negative Final Assessment 1. Throat clearing 2. Vomiting 3. Gastroparesis Plan: Recommend patient be evaluated by ear nose and throat. Appointment scheduled with Dr. Sebastian pradhan. She was unable to tolerate manometry study. Due to visual evidence of gastroparesis, patient given gastroparesis diet. Recommend she s tart step 1 for 1 day then continue on step 2 for approximately 2 weeks. If she does feel b bette, she is to slowly transition into step 3. Suspect functional component to throat clearing and vomiting. Patient is to call with any question or concerns. Any fevers, chills, chest pain, SOB or o ther serious symptoms patient is to call the office or go to ER Cc: Xiomara Pereyra This note was dictated using voice recognition software. Please contact me if there are an y questions regarding its content. documented in this encounter Plan of Treatment +--------+---------+ + + + | Date | Type | Specialty | Care Team | Description | +--------+---------+ + + + | 06/11/ | Office | Neurology | Miguel[place], | | | 2019 | Visit | | [address] | | | | | | [address] [facility], | | | | | | [place] [address] | | | | | | [phone] | | | | | | | | +--------+---------+ + + + documented as of this encounter Visit Diagnoses + + | Diagnosis | + + | Throat clearing - Primary Other symptoms involving head and neck | + + | Vomiting Vomiting alone | + + | Gastroparesis | + + documented in this encounter
--- OUTSIDE RECORDS SUMMARY | ~2020-05-13 | XMS | Encounter Summary ---
Demographics + + + | Address | [address] | | | [place] [address] | + + + | Home Phone | | + + + | Preferred Language | Unknown | + + + | Marital Status | | + + + | Mosque Affiliation | Unknown | + + + | Race | Black or | + + + | Ethnic Group | Not or | + + + Author + + + | Author | [facility] | | | and [place] | + + + | Organization | [facility] | | | and [place] | + + + | Address | Unknown | + + + | Phone | Unavailable | + + + Care Team Providers + +------+ + | Care Technical Sales Consultant Name | Role | Phone | + +------+ + PCP | Unavailable | + +------+ + Encounter Details +--------+ + + + + | Date | Type | Department | Care Team | Description | +--------+ + + + + | 05/09/ | Hospital | [facility] | Beatriz Kolb | | | 2008 | Encounter | [facility] | [address] | | | | | [address] | [place], [place] | | | | | [place] | [address] | | | | | [address] | | | | | | [phone] | | | +--------+ + + + [...] | | | | | | [place] [address] | | | | | | [phone] | | | | | | | | +--------+---------+ + + + documented as of this encounter Visit Diagnoses Not on filedocumented in this encounter"
--- OUTSIDE RECORDS SUMMARY | ~2020-05-13 | XMS | Encounter Summary ---
Demographics + + + | Address | [address] | | | [place] [address] | + + + | Home Phone | | + + + | Preferred Language | Unknown | + + + | Marital Status | | + + + | Mormonism Affiliation | Unknown | + + + | Race | White | + + + | Ethnic Group | Not or | + + + Author + + + | Author | [facility] | + + + | Organization | [facility] | + + + | Address | Unknown | + + + | Phone | Unavailable | + + + Support + + +---------+ + | Name | Relationship | Address | Phone | + + +---------+ + | Mick Barndon | ECON | Unknown | | + + +---------+ + Care Team Providers + +------+ + | Care Mixing Pan Tender Name | Role | Phone | + +------+ + | Xiomara Gloria | PCP | | + +------+ + Encounter Details +--------+ + + + + | Date | Type | Department | Care Team | Description | +--------+ + + + + | 11/10/ | Document-Sc | Health Information | Unknown . | | | 2014 | anned | Services [id number] | | | | | [address] | | | | | | Mailcode: [id number] | | | | | | [facility] | | | | | | [place], [place] | | | | | | [address] | | | | | | [phone] | | | +--------+ + + + [...]
--- OUTSIDE RECORDS SUMMARY | ~2020-05-13 | XMS | Encounter Summary ---
Demographics + + + | Address | [address] | | | [place] [address] | + + + | Home Phone | | + + + | Preferred Language | Unknown | + + + | Marital Status | | + + + | Religion Affiliation | Unknown | + + + | Race | Black or | + + + | Ethnic Group | Not or | + + + Author + + + | Author | [facility] | | | and [place] | + + + | Organization | [facility] | | | and [place] | + + + | Address | Unknown | + + + | Phone | Unavailable | + + + Care Team Providers + +------+ + | Care Environmental Advisor Name | Role | Phone | + +------+ + | Xiomara Gloria PA-C | PCP | | + +------+ + Reason for Referral Evaluate & Treat (Routine) +--------+ + + + + + | Status | Reason | Specialty | Diagnoses / | Referred By | Referred To | | | | | Procedures | Contact | Contact | +--------+ + + + + + | Closed | Specialty | Gastroenterol | Diagnoses | | [place], | | | Services | ogy | GERD | [facility], | Waylon Salinas MD | | | Required | | (gastroesoph | [place], | [address], | | | | | ageal reflux | RN OPERATING ROOM [address] | [address] | | | | | disease) | [address] | [place], | | | | | Abdominal | [address] | [place] [address] | | | | | bloating | [place], | Phone: | | | | | Procedures | [place] [address] | [phone] | | | | | [place] | Phone: | Fax: | | | | | ESOPHAGOGAST | [phone] | [phone] | | | | | RODUODENOSCO | Fax: | | | | | | PY TRANSORAL | [phone] | | | | | | DIAGNOSTIC | | | | | | | [place] EDG | | | | | | | TRANSORAL | | | | | | | BIOPSY | | | | | | | SINGLE/MULTI | | | | | | | PLE NC GERD | | | | | | | TST W/ | | | | | | | MUCOS PH | | | | | | | ELECTROD NC | | | | | | | GASTRIC | | | | | | | MOTILITY | | | | | | | STUDY | | | +--------+ + + + + + Diagnostic/Screening (Routine) +--------+--------+ + + + + | Status | Reason | Specialty | Diagnoses / | Referred By | Referred To | | | | | Procedures | Contact | Contact | +--------+--------+ + + + + | Closed | | Radiology | Diagnoses | | [facility] | | | | | GERD | [facility], | Medicine | | | | | (gastroesoph | [place], | [address] | | | | | ageal reflux | RN OPERATING ROOM [address] | [place], | | | | | disease) | [address] | [place] | | | | | Abdominal | [address] | [address] | | | | | bloating | [place], | Phone: | | | | | Procedures | [place] [address] | [phone] | | | | | [place] Gastric | Phone: | Fax: | | | | | Emptying [place] | [phone] | [phone] | | | | | GASTRIC | Fax: | | | | | | EMPTYING | [phone] | | | | | | STUDY | | | +--------+--------+ + + + + Reason for Visit + + + | Reason | Comments | + + + | Gastroesophageal | | | Reflux | | + + + Evaluate (Routine) +--------+--------+ [...] | | | | Procedures | Xiomara K, | ogy [address] | | | | | [address] | PA-C [address] | | | | | | [address] | [address] | | | | | [address] | [place] | | | | | | [place], | [address] | | | | | | [place] | Phone: | | | | | | [address] | [phone] | | | | | | Phone: | Fax: | | | | | | [phone] | [phone] | | | | | | Fax: | | | | | | | [phone] | | +--------+--------+ + + + + Encounter Details +--------+---------+ + + + | Date | Type | Department | Care Team | Description | +--------+---------+ + + + | 11/06/ | Office | [facility] | [place], | GERD | | 2015 | Visit | GASTROENTEROLOGY | [address] | (gastroesophageal | | | | [address] | [address] | reflux disease) | | | | [address] [place], [place] | [place] | (Primary Dx); | | | | [address] | [address] | Abdominal bloating; | | | | [phone] | | Dysphagia | +--------+---------+ + + + Social History [...] + + + | Blood Pressure | 104/70 | 11/06/2014 9:20 AM | | | | | PST | | + + + + + | Pulse | 78 | 11/06/2014 9:20 AM | | | | | PST | | + + + + + | Temperature | 37.7 C (99.8 F) | 11/06/2014 9:20 AM | | | | | PST | | + + + + + | Respiratory Rate | 16 | 11/06/2014 9:20 AM | | | | | PST | | + + + + + | Oxygen Saturation | - | - | | + + + + + | Inhaled Oxygen | - | - | | | Concentration | | | | + + + + + | Weight | 68 kg (150 lb) | 11/06/2014 9:20 AM | | | | | PST | | + + + + + | Height | 177.8 cm (5' 10") | 11/06/2014 9:20 AM | | | | | PST | | + + + + + | Body Mass Index | 21.52 | 11/06/2014 9:20 AM | | | | | PST | | + + + + + documented in this encounter Progress Notes Dana Baum ARNP - 11/06/2014 9:39 AM PSTFormatting of this note might be differe nt [...] was normal. The colon is normal ~ [facility] Dr. Tariq Upper gastrointestinal endoscopy 05/11/2009 IMPRESSION: Normal esophagus, Gastric mucosal cbnormality characterized by arythema, Sing le papule with no bleeding, Normal examined duodenum ~ [facility] Dr. Tariq Cholecystectomy 2004 Family History Problem [...] was normal. The colon is normal ~ [facility] Dr. Tariq Final Creatinine, External 05/12/2014 0.82 0.6 - 1.35 Final eGFR, External 05/12/2014 >60 60 - 600187 Final TSH, External 05/12/2014 2.84 0.27 - [...] NM Gastric Emptying Ambulatory referral to Gastroenterology [facility] 2. Abdominal bloating NM Gastric Emptying Ambulatory referral to Gastroenterology [facility] 3. Dysphagia Plan: Patient to have EGD with BADILLO for further evaluation.The procedural techniques, risks, ind [...] its content. documented in t his encounter Plan of Treatment +--------+---------+ + + + | Date | Type | Specialty | Care Team | Description | +--------+---------+ + + + | 06/11/ | Office | Neurology | Miguelito, | | | 2019 | Visit | | [address] | | | | | | [address] [place], | | | | | | [place] [address] | | | | | | [phone] | | | | | | | | +--------+---------+ + + + + +---------+--------+ + + | Name | Type | Priori | Associated Diagnoses | Order Schedule | | | | ty | | | + +---------+--------+ + + | NM Gastric Emptying | Imaging | Routin | GERD | Expected: | | | | e | (gastroesophageal | 11/06/2014, Expires: | | | | | reflux disease) | 03/06/2015 | | | | | Abdominal bloating | | + +---------+--------+ + + + + +--------+ + + | Name | Type | Priori | Associated Diagnoses | Order Schedule | | | | ty | | | + + +--------+ + + | Ambulatory referral | Outpatient | Routin | GERD | Expected: | | to Gastroenterology | Referral | e | (gastroesophageal | 11/28/2014, Expires: | | HARRI | | | reflux disease) | 11/06/2015 | | | | | Abdominal bloating | | + + +--------+ + + documented as of this encounter Visit Diagnoses + + | Diagnosis | + + | GERD (gastroesophageal reflux disease) - Primary Esophageal reflux | + + | Abdominal bloating Flatulence, eructation, and gas pain | + + | Dysphagia Dysphagia, unspecified | + + documented in this encounter
--- OUTSIDE RECORDS SUMMARY | ~2020-05-13 | XMS | Encounter Summary ---
Demographics + + + | Address | [address] | | | [place] [address] | + + + | Home Phone | | + + + | Preferred Language | Unknown | + + + | Marital Status | | + + + | Zoroastrianism Affiliation | Unknown | + + + | Race | White | + + + | Ethnic Group | Not or | + + + Author + + + | Author | [facility] | + + + | Organization | [facility] | + + + | Address | Unknown | + + + | Phone | Unavailable | + + + Support + + +---------+ + | Name | Relationship | Address | Phone | + + +---------+ + | Mick Brandon | ECON | Unknown | | + + +---------+ + Care Team Providers + +------+ + | Care Sausage Cooker Name | Role | Phone | + [...] + + | 09/29/ | Emergency | [facility] Emergency | | | | 2015 | | Department [address] | | | | | | [address] | | | | | | [facility] | | | | | | [place], [place] | | | | | | [address] | | | | | | [phone] | | | +--------+ + + + [...] | 1 | 05/11/20 | | | (MEDROLJUAN,) 4 mg | directions. | Package | [...] documented as of this encounter Miscellaneous Notes Comm [place] - Yojana Coombs - 09/29/2015 7:[address]ensen with Dr Hitchcock, 35YO F, lymph node biopsy, left groin incised, consult to discuss biopsy findings. consult only, no transfer. [facility] - Trixie Servin - 09/29/2015 5:[address] William Christensen, ID X [phone] documented in this encounter Plan of Treatment Not on filedocumented as of this encounter Visit Diagnoses Not on filedocumented in this encounter"
--- OUTSIDE RECORDS SUMMARY | ~2020-05-13 | XMS | Encounter Summary ---
Demographics + + + | Address | [address] | | | [place] [address] | + + + | Home Phone [...] + + + | Author | [facility] | | | and [place] | + + + | Organization | [facility] | | | and [place] | + + + | Address | Unknown | + + + | Phone | Unavailable | + + + Care Team Providers + +------+ + | Care Stone Hand Name | Role | Phone | + +------+ + | Xiomara Gloria PA-C | PCP | | + +------+ + Reason for Visit + +--------+ + | Reason | Onset | Comments | | | Date | | + +--------+ + | Medication Refill | 01/26/ | | | | 2020 | | + +--------+ + Encounter Details +--------+--------+ + + + | Date | Type | Department | Care Team | Description | +--------+--------+ + + + | 01/26/ | Refill | [facility] | Chente Luz MD | Medication Refill | | 2019 | | [facility]OSPITAL [facility] | [address] | | | | | CLINIC [address] | [place] | | | | | [address] [place], | [address] | | | | | [place] [address] | | | | | | [phone] | | | +--------+--------+ + + + [...] Telephone Encounter - Caterina Melara RN - 01/27/2020 9:12 AM PDTLast filled 01/25/20 Relpax Last filled 01/25/20 Prozac Last seen 01/25/20 Next appt 06/11/20 TORIE Sabillon documented i n this encounter Plan of Treatment +--------+---------+ + + + | Date | Type | Specialty | Care Team | Description | +--------+---------+ + + + | 06/11/ Office | Neurology | Miguelito, | | 2019 | Visit | | [address] | | | | | [address] [place], | | | | | | [place] [address] | | | | | | [phone] | | | | | | | | +--------+---------+ + + + documented as of this encounter Visit Diagnoses Not on filedocumented in this encounter"
--- OUTSIDE RECORDS SUMMARY | ~2020-05-13 | XMS | Encounter Summary ---
Demographics + + + | Address | [address] | | | [place] [address] | + + + | Home Phone | | + + + | Preferred Language | Unknown | + + + | Marital Status | | + + + | Baptist Affiliation | Unknown | + + + | Race | Black or | + + + | Ethnic Group | Not or | + + + Author + + + | Author | [facility] | | | and [place] | + + + | Organization | [facility] | | | and [place] | + + + | Address | Unknown | + + + | Phone | Unavailable | + + + Care Team Providers + +------+ + | Care Physician Non Invasive Cardiologist Name | Role | Phone | + +------+ + PCP | Unavailable | + +------+ + Encounter Details +--------+ + + + + | Date | Type | Department | Care Team | Description | +--------+ + + + + | 09/28/ | Hospital | [facility] | | | | 2009 | Encounter | [facility] | | | | | | [address] | | | | | | [place] | | | | | | [address] | | | | | | [phone] | | | +--------+ + + + [...] | | | | | | [place] [address] | | | | | | [phone] | | | | | | | | +--------+---------+ + + + documented as of this encounter Visit Diagnoses Not on filedocumented in this encounter"
--- OUTSIDE RECORDS SUMMARY | ~2020-05-13 | XMS | Encounter Summary ---
Demographics + + + | Address | [address] | | | [place] [address] | + + + | Home Phone | | + + + | Preferred Language | Unknown | + + + | Marital Status | | + + + | Bahai Affiliation | Unknown | + + + | Race | White | + + + | Ethnic Group | Not or | + + + Author + + + | Author | [facility] | + + + | Organization | [facility] | + + + | Address | Unknown | + + + | Phone | Unavailable | + + + Support + + +---------+ + | Name | Relationship | Address | Phone | + + +---------+ + | Mick Brandon | ECON | Unknown | | + + +---------+ + Care Team Providers + +------+ + | Care Spar Finisher Name | Role | Phone | + +------+ + | Xiomara Gloria | PCP | | + +------+ + Encounter Details +--------+ + + + + | Date | Type | Department | Care Team | Description | +--------+ + + + + | 02/28/ | Document-Sc | Health Information | Unknown . | | | 2014 | anned | Services [id number] | | | | | [address] | | | | | | Mailcode: [id number] | | | | | | [facility] | | | | | | [place], [place] | | | | | | [address] | | | | | | [phone] | | | +--------+ + + + [...]
--- OUTSIDE RECORDS SUMMARY | ~2020-05-13 | XMS | Encounter Summary ---
Demographics + + + | Address | [address] | | | [place] [address] | + + + | Home Phone [...] + | Author | [facility] | | | and [place] | + + + | Organization | [facility] | | | and [place] | + + + | Address | Unknown | + + + | Phone | Unavailable | + + + Care Team Providers + +------+ + | Care Mortgage Loan Underwriter Name | Role | Phone | + +------+ + | Xiomara Gloria PA-C | PCP | | + +------+ + Encounter Details +--------+ + + + + | Date | Type | Department | Care Team | Description | +--------+ + + + + | 11/01/ | Abstract | [facility] [place] | [facility], | | | 2014 | | GASTROENTEROLOGY | [address] | | | | | [address] | [address] | | | | | [address] | [place] | | | | | [address] | [address] | | | | | [phone] | | | +--------+ + + + [...] | | | | | | [facility] [facility], | | | | | | [place] [address] | | | | | | [phone] | | | | | | | | +--------+---------+ + + + documented as of this encounter Procedures + +--------+ + + + | Procedure Name | Priori | Date/Time | Associated Diagnosis | Comments | | | ty | | | | + +--------+ + + + | HELICOBACTER PYLORI | Routin | 05/19/2014 | | Results for this | | AB, IGG | e | 10:03 AM | | procedure are in the | | | | PDT | | results section. | + +--------+ + + + | AUTOIMMUNE PROFILE | Routin | 05/12/2014 | | Results for this | | (REFLEXIVE) | e | 4:57 PM | | procedure are in the | | | | PDT | | results section. | + +--------+ + + + | CBC WITH | Routin | 05/12/2014 | | Results for this | | DIFFERENTIAL | e | 4:57 PM | | procedure are in the | | | | PDT | | results section. | + +--------+ + + + | COMPREHENSIVE | Routin | 05/12/2014 | | Results for this | | METABOLIC PANEL | e | 4:57 PM | | procedure are in the | | | | PDT | | results section. | + +--------+ + + + | EXTERNAL LAB: BUN | Routin | 05/12/2014 | | Results for this | | | e | 4:57 AM | | procedure are in the | | | | PDT | | results section. | + +--------+ + + + | EXTERNAL LAB: | Routin | 05/12/2014 | | Results for this | | GLUCOSE | e | 4:57 AM | | procedure are in the | | | | PDT | | results section. | + +--------+ + + + | EXTERNAL LAB: ALT | Routin | 05/12/2014 | | Results for this | | | e | 4:57 AM | | procedure are in the | | | | PDT | | results section. | + +--------+ + + + | EXTERNAL LAB: AST | Routin | 05/12/2014 | | Results for this | | | e | 4:57 AM | | procedure are in the | | | | PDT | | results section. | + +--------+ + + + | EXTERNAL LAB: | Routin | 05/12/2014 | | Results for this | | ALKALINE PHOSPHATASE | e | 4:57 AM | | procedure are in the | | | | PDT | | results section. | + +--------+ + + + | EXTERNAL LAB: | Routin | 05/12/2014 | | Results for this | | BILIRUBIN, TOTAL | e | 4:57 AM | | procedure are in the | | | | PDT | | results section. | + +--------+ + + + | EXTERNAL LAB: | Routin | 05/12/2014 | | Results for this | | ALBUMIN | e | 4:57 AM | | procedure are in the | | | | PDT | | results section. | + +--------+ + + + | EXTERNAL LAB: | Routin | 05/12/2014 | | Results for this | | PROTEIN, TOTAL | e | 4:57 AM | | procedure are in the | | | | PDT | | results section. | + +--------+ + + + | EXTERNAL LAB: | Routin | 05/12/2014 | | Results for this | | CALCIUM | e | 4:57 AM | | procedure are in the | | | | PDT | | results section. | + +--------+ + + + | EXTERNAL LAB: CARBON | Routin | 05/12/2014 | | Results for this | | DIOXIDE | e | 4:57 AM | | procedure are in the | | | | PDT | | results section. | + +--------+ + + + | EXTERNAL LAB: | Routin | 05/12/2014 | | Results for this | | CHLORIDE | e | 4:57 AM | | procedure are in the | | | | PDT | | results section. | + +--------+ + + + | EXTERNAL LAB: | Routin | 05/12/2014 | | Results for this | | POTASSIUM | e | 4:57 AM | | procedure are in the | | | | PDT | | results section. | + +--------+ + + + | EXTERNAL LAB: SODIUM | Routin | 05/12/2014 | | Results for this | | | e | 4:57 AM | | procedure are in the | | | | PDT | | results section. | + +--------+ + + + | EXTERNAL LAB: CBC | Routin | 05/12/2014 | | Results for this | | | e | 4:57 AM | | procedure are in the | | | | PDT | | results section. | + +--------+ + + + | EXTERNAL LAB: TSH | Routin | 05/12/2014 | | Results for this | | | e | 4:57 AM | | procedure are in the | | | | PDT | | results section. | + +--------+ + + + | EXTERNAL LAB: EGFR | Routin | 05/12/2014 | | Results for this | | | e | 4:57 AM | | procedure are in the | | | | PDT | | results section. | + +--------+ + + + | EXTERNAL LAB: | Routin | 05/12/2014 | | Results for this | | CREATININE | e | 4:57 AM | | procedure are in the | | | | PDT | | results section. | + +--------+ + + + | EXTERNAL: | Routin | 05/11/2009 | | Results for this | | COLONOSCOPY | e | 11:40 AM | | procedure are in the | | | | PDT | | results section. | + +--------+ + + + documented in this encounter Results Helicobacter Pylori AB, IgG (05/19/2014 10:03 AM PDT) + +-------+ + + + | Component | Value | Ref Range | Performed | Pathologist | | | | | At | Signature | + +-------+ + + + | H PYLORI | 0.502 | | [facility] | | | IGG | | | [facility] | | | | | | [facility] | | | | | | [facility] - | | | | | | LABORATORY | | + +-------+ + + + + + | Specimen | + + | Blood specimen | | (specimen) | + + + + + + + | Performing | Address | City/State/Zipcode | Phone Number | | Organization | | | | + + + + + | [facility] | [address] | [place] | | | [facility] | | [address], [facility] | | | - LABORATORY | | | | + + + + + Autoimmune Profile (Reflexive) (05/12/2014 4:57 PM PDT) + + + + + + | Component | Value | Ref Range | Performed | Pathologist | | | | | At | Signature | + + + + + + | COSMO | <1:40 | | | | + + + + + + | Nuclear Ab | N/A | | | | | Pattern.Nuc | | | | | | leolar | | | | | + + + + + + | dsDNA Ab | Non Detected | | | | | Titer | | | | | + + + + + + | FISHER | 4.6 | | | | | ANTIBODY | | | | | + + + + + + | Ribosomal P | 1.1 | | | | | | | | | | | Autoantibod | | | | | | y | | | | | + + + + + + | SJOGREN'S | 4.5Comment: "A" | | | | | AB | | | | | + + + + + + | SJOGREN'S | 2.3Comment: "B" | | | | | AB | | | | | + + + + + + | Centromere | Non Detected | | | | | AB IgG | | | | | + + + + + + | Scleroderma | 1.2 | | | | | SCL-70 AB | | | | | | IgG | | | | | + + + + + + | RHEUMATOID | <10 | | | | | FACTOR | | | | | + + + + + + | CRP | 5Comment: <5 | mg/L | | | + + + + + + | Complement | 102.9 | | | | | C3, Body | | | | | | Fluid | | | | | + + + + + + | Complement | 27.5 | | | | | C4, Body | | | | | | Fluid | | | | | + + + + + + | SWAPNA-1 | 2.0 | | | | | autoantibod | | | | | | y IgG | | | | | + + + + + + | Histone Ab | 0 | 100 U/mL | | | + + + + + + + + | Specimen | + + | Blood specimen | | (specimen) | + + Comprehensive Metabolic Panel (05/12/2014 4:57 PM PDT) + +-------+ + + + | Component | Value | Ref Range | Performed | Pathologist | | | | | At | Signature | + +-------+ + + + | Anion Gap | 8 | mmol/L | [facility] | | | | | | [facility] | | | | | | [facility] | | | | | | [facility] - | | | | | | LABORATORY | | + +-------+ + + + | BUN/Creatin | 11.0 | | [facility] | | | ine Ratio | | | [facility] | | | | | | MEDICAL | | | | | | CENTER - | | | | | | LABORATORY | | + +-------+ + + + | Globulin | 2.5 | | [facility] | | | | | | [facility] | | | | | | MEDICAL | | | | | | CENTER - | | | | | | LABORATORY | | + +-------+ + + + | Albumin/Khalida | 1.8 | | [facility] | | | bulin Ratio | | | [facility] | | | | | | MEDICAL | | | | | | CENTER - | | | | | | LABORATORY | | + +-------+ + + + + + | Specimen | + + | Blood specimen | | (specimen) | + + + + + + + | Performing | Address | City/State/Zipcode | Phone Number | | Organization | | | | + + + + + | [facility] | [address] | [place], [place] | | | [facility] | | [address], [facility] | | | - LABORATORY | | | | + + + + + CBC with Differential (05/12/2014 4:57 PM PDT) + +-------+ + + + | Component | Value | Ref Range | Performed | Pathologist | | | | | At | Signature | + +-------+ + + + | [facility] | 30.0 | pg | | | + +-------+ + + + | [facility] | 33.0 | % | | | + +-------+ + + + | % Basophils | | % | | | + +-------+ + + + + + | Specimen | + + | Blood specimen | | (specimen) | + + External Lab: STEVE (05/12/2014 4:57 AM PDT) + +-------+ + + + | Component | Value | Ref Range | Performed | Pathologist | | | | | At | Signature | + +-------+ + + + | BUN, | 9 | 6 - 23 | EXTERNAL | | | External | | | LAB | | + +-------+ + + + + + | Resulting Agency Comment | + + | [facility] | + + + +---------+ + + | Performing | Address | City/State/Zipcode | Phone Number | | Organization | | | | + +---------+ + + | EXTERNAL LAB | | | | + +---------+ + + External Lab: Glucose (05/12/2014 4:57 AM PDT) + +--------+ + + + | Component | Value | Ref Range | Performed | Pathologist | | | | | At | Signature | + +--------+ + + + | Glucose, | 63 (A) | 70 - 100 | EXTERNAL | | | External | | | LAB | | + +--------+ + + + + + | Resulting Agency Comment | + + | [facility] | + + + +---------+ + + | Performing | Address | City/State/Zipcode | Phone Number | | Organization | | | | + +---------+ + + | EXTERNAL LAB | | | | + +---------+ + + External Lab: ALT (05/12/2014 4:57 AM PDT) + +-------+ + + + | Component | Value | Ref Range | Performed | Pathologist | | | | | At | Signature | + +-------+ + + + | ALT, | 26 | 7 - 52 | EXTERNAL | | | External | | | LAB | | + +-------+ + + + + + | Resulting Agency Comment | + + | [facility] | + + + +---------+ + + | Performing | Address | City/State/Zipcode | Phone Number | | Organization | | | | + +---------+ + + | EXTERNAL LAB | | | | + +---------+ + + External Lab: AST (05/12/2014 4:57 AM PDT) + +-------+ + + + | Component | Value | Ref Range | Performed | Pathologist | | | | | At | Signature | + +-------+ + + + | AST, | 21 | 13 - 39 | EXTERNAL | | | External | | | LAB | | + +-------+ + + + + + | Resulting Agency Comment | + + | [facility] | + + + +---------+ + + | Performing | Address | City/State/Zipcode | Phone Number | | Organization | | | | + +---------+ + + | EXTERNAL LAB | | | | + +---------+ + + External Lab: Alkaline Phosphatase (05/12/2014 4:57 AM PDT) + +-------+ + + + | Component | Value | Ref Range | Performed | Pathologist | | | | | At | Signature | + +-------+ + + + | ALP, | 58 | 30 - 128 | EXTERNAL | | | External | | | LAB | | + +-------+ + + + + + | Resulting Agency Comment | + + | [facility] | + + + +---------+ + + | Performing | Address | City/State/Zipcode | Phone Number | | Organization | | | | + +---------+ + + | EXTERNAL LAB | | | | + +---------+ + + External Lab: Bilirubin, Total (05/12/2014 4:57 AM PDT) + +-------+ + + + | Component | Value | Ref Range | Performed | Pathologist | | | | | At | Signature | + +-------+ + + + | Bilirubin, | 1.2 | 0 - 1.2 | EXTERNAL | | | Total, | | | LAB | | | External | | | | | + +-------+ + + + + + | Resulting Agency Comment | + + | [facility] | + + + +---------+ + + | Performing | Address | City/State/Zipcode | Phone Number | | Organization | | | | + +---------+ + + | EXTERNAL LAB | | | | + +---------+ + + External Lab: Albumin (05/12/2014 4:57 AM PDT) + +-------+ + + + | Component | Value | Ref Range | Performed | Pathologist | | | | | At | Signature | + +-------+ + + + | Albumin, | 4.6 | 3.5 - 5 | EXTERNAL | | | External | | | LAB | | + +-------+ + + + + + | Resulting Agency Comment | + + | [facility] | + + + +---------+ + + | Performing | Address | City/State/Zipcode | Phone Number | | Organization | | | | + +---------+ + + | EXTERNAL LAB | | | | + +---------+ + + External Lab: Protein, Total (05/12/2014 4:57 AM PDT) + +-------+ + + + | Component | Value | Ref Range | Performed | Pathologist | | | | | At | Signature | + +-------+ + + + | Protein, | 7.1 | 6 - 8 | EXTERNAL | | | Total, | | | LAB | | | External | | | | | + +-------+ + + + + + | Resulting Agency Comment | + + | [facility] | + + + +---------+ + + | Performing | Address | City/State/Zipcode | Phone Number | | Organization | | | | + +---------+ + + | EXTERNAL LAB | | | | + +---------+ + + External Lab: Calcium (05/12/2014 4:57 AM PDT) + +-------+ + + + | Component | Value | Ref Range | Performed | Pathologist | | | | | At | Signature | + +-------+ + + + | Calcium, | 9.4 | 6.4 - 10.2 | EXTERNAL | | | External | | | LAB | | + +-------+ + + + + + | Resulting Agency Comment | + + | [facility] | + + + +---------+ + + | Performing | Address | City/State/Zipcode | Phone Number | | Organization | | | | + +---------+ + + | EXTERNAL LAB | | | | + +---------+ + + External Lab: Carbon Dioxide (05/12/2014 4:57 AM PDT) + +-------+ + + + | Component | Value | Ref Range | Performed | Pathologist | | | | | At | Signature | + +-------+ + + + | Carbon | 28 | 19 - 31 | EXTERNAL | | | Dioxide, | | | LAB | | | External | | | | | + +-------+ + + + + + | Resulting Agency Comment | + + | [facility] | + + + +---------+ + + | Performing | Address | City/State/Zipcode | Phone Number | | Organization | | | | + +---------+ + + | EXTERNAL LAB | | | | + +---------+ + + External Lab: Chloride (05/12/2014 4:57 AM PDT) + +-------+ + + + | Component | Value | Ref Range | Performed | Pathologist | | | | | At | Signature | + +-------+ + + + | Chloride, | 105 | 95 - 112 | EXTERNAL | | | External | | | LAB | | + +-------+ + + + + + | Resulting Agency Comment | + + | [facility] | + + + +---------+ + + | Performing | Address | City/State/Zipcode | Phone Number | | Organization | | | | + +---------+ + + | EXTERNAL LAB | | | | + +---------+ + + External Lab: Potassium (05/12/2014 4:57 AM PDT) + +-------+ + + + | Component | Value | Ref Range | Performed | Pathologist | | | | | At | Signature | + +-------+ + + + | Potassium, | 3.7 | 3.6 - 5.1 | EXTERNAL | | | External | | | LAB | | + +-------+ + + + + + | Resulting Agency Comment | + + | [facility] | + + + +---------+ + + | Performing | Address | City/State/Zipcode | Phone Number | | Organization | | | | + +---------+ + + | EXTERNAL LAB | | | | + +---------+ + + External Lab: Sodium (05/12/2014 4:57 AM PDT) + +-------+ + + + | Component | Value | Ref Range | Performed | Pathologist | | | | | At | Signature | + +-------+ + + + | Sodium, | 137 | 132 - 143 | EXTERNAL | | | External | | | LAB | | + +-------+ + + + + + | Resulting Agency Comment | + + | [facility] | + + + +---------+ + + | Performing | Address | City/State/Zipcode | Phone Number | | Organization | | | | + +---------+ + + | EXTERNAL LAB | | | | + +---------+ + + External Lab: CBC (05/12/2014 4:57 AM PDT) + +-------+ + + + | Component | Value | Ref Range | Performed | Pathologist | | | | | At | Signature | + +-------+ + + + | WBC, | 4.9 | 4.5 - 11 | EXTERNAL | | | External | | | LAB | | + +-------+ + + + | HGB, | 13.3 | 12 - 16 | EXTERNAL | | | External | | | LAB | | + +-------+ + + + | HCT, | 39.9 | 35 - 45 | EXTERNAL | | | External | | | LAB | | + +-------+ + + + | PLT, | 161 | 140 - 440 | EXTERNAL | | | External | | | LAB | | + +-------+ + + + | Neutrophils | 55.4 | 39 - 80 | EXTERNAL | | | %, | | | LAB | | | External | | | | | + +-------+ + + + | Lymphocytes | 32.3 | 24 - 44 | EXTERNAL | | | %, | | | LAB | | | External | | | | | + +-------+ + + + | Monocytes | 8.7 | 0 - 12 | EXTERNAL | | | %, External | | | LAB | | + +-------+ + + + | Eosinophils | 2.7 | 0 - 6 | EXTERNAL | | | %, | | | LAB | | | External | | | | | + +-------+ + + + | RBC, | 4.38 | 3.8 - 5.1 | EXTERNAL | | | External | | | LAB | | + +-------+ + + + | MCV, | 91 | 81 - 99 | EXTERNAL | | | External | | | LAB | | + +-------+ + + + | RDW, | 13.3 | 10.5 - 15 | EXTERNAL | | | External | | | LAB | | + +-------+ + + + + + | Resulting Agency Comment | + + | [facility] | + + + +---------+ + + | Performing | Address | City/State/Zipcode | Phone Number | | Organization | | | | + +---------+ + + | EXTERNAL LAB | | | | + +---------+ + + External Lab: TSH (05/12/2014 4:57 AM PDT) + +-------+ + + + | Component | Value | Ref Range | Performed | Pathologist | | | | | At | Signature | + +-------+ + + + | TSH, | 2.84 | 0.27 - 4.2 | EXTERNAL | | | External | | | LAB | | + +-------+ + + + + + | Specimen | + + | Blood specimen | | (specimen) | + + + + | Resulting Agency Comment | + + | [facility] | + + + +---------+ + + | Performing | Address | City/State/Zipcode | Phone Number | | Organization | | | | + +---------+ + + | EXTERNAL LAB | | | | + +---------+ + + External Lab: eGFR (05/12/2014 4:57 AM PDT) + +-------+ + + + | Component | Value | Ref Range | Performed | Pathologist | | | | | At | Signature | + +-------+ + + + | eGFR, | >60 | 60 - 999,999 | EXTERNAL | | | External | | | LAB | | + +-------+ + + + + + | Specimen | + + | Blood specimen | | (specimen) | + + + + | Resulting Agency Comment | + + | [facility] | + + + +---------+ + + | Performing | Address | City/State/Zipcode | Phone Number | | Organization | | | | + +---------+ + + | EXTERNAL LAB | | | | + +---------+ + + External Lab: Creatinine (05/12/2014 4:57 AM PDT) + +-------+ + + + | Component | Value | Ref Range | Performed | Pathologist | | | | | At | Signature | + +-------+ + + + | Creatinine, | 0.82 | 0.6 - 1.35 | EXTERNAL | | | External | | | LAB | | + +-------+ + + + + + | Specimen | + + | Blood specimen | | (specimen) | + + + + | Resulting Agency Comment | + + | [facility] | + + + +---------+ + + | Performing | Address | City/State/Zipcode | Phone Number | | Organization | | | | + +---------+ + + | EXTERNAL LAB | | | | + +---------+ + + EXTERNAL: COLONOSCOPY (05/11/2009 11:40 AM PDT) + + + + + + | Component | Value | Ref Range | Performed | Pathologist | | | | | At | Signature | + + + + + + | Colonoscopy | IMPRESSION: The examined | | | | | | portion of the ileum | | | | | Impression, | was normal. The colon is | | | | | External | normal ~ [facility] | | | | | | Marc[place] | | | | + + + + + + documented in this encounter Visit Diagnoses Not on filedocumented in this encounter
--- OUTSIDE RECORDS SUMMARY | ~2020-05-13 | XMS | Encounter Summary ---
Demographics + + + | Address | [address] | | | [place] [address] | + + + | Home Phone [...] Author + + + | Author | [facility] | | | and [place] | + + + | Organization | [facility] | | | and [place] | + + + | Address | Unknown | + + + | Phone | Unavailable | + + + Care Team Providers + +------+ + | Care Machine Pecan Picker Name | Role | Phone | + +------+ + PCP | Unavailable | + +------+ + Encounter Details +--------+ + + + + | Date | Type | Department | Care Team | Description | +--------+ + + + + | 08/14/ | Hospital | [facility] | | | | 2009 | Encounter | MED CTR GENERIC OP | | | | | | CONV DEPT [address] | | | | | | [place], | | | | | | [place] [address] | | | | | | [phone] | | | +--------+ + + + [...] | | | | | | [place] [address] | | | | | | [phone] | | | | | | | | +--------+---------+ + + + documented as of this encounter Visit Diagnoses Not on filedocumented in this encounter"
--- OUTSIDE RECORDS SUMMARY | ~2020-05-13 | XMS | Encounter Summary ---
Demographics + + + | Address | [address] | | | [place] [address] | + + + | Home Phone | | + + + | Preferred Language | Unknown | + + + | Marital Status | | + + + | Denominational Affiliation | Unknown | + + + | Race | White | + + + | Ethnic Group | Not or | + + + Author + + + | Author | [facility] | + + + | Organization | [facility] | + + + | Address | Unknown | + + + | Phone | Unavailable | + + + Support + + +---------+ + | Name | Relationship | Address | Phone | + + +---------+ + | Mick Brandon | ECON | Unknown | | + + +---------+ + Care Team Providers + +------+ + | Care Corner Block Cutter Name | Role | Phone | + +------+ + | Xiomara Gloria | PCP | | + +------+ + Encounter Details +--------+ + + + + | Date | Type | Department | Care Team | Description | +--------+ + + + + | 09/29/ | Document-Sc | Health Information | Unknown . | | | 2015 | anned | Services [id number] | | | | | | [address] | | | | | | Mailcode: [id number] | | | | | | [facility] | | | | | | [place], [place] | | | | | | [address] | | | | | | [phone] | | | +--------+ + + + [...]
--- OUTSIDE RECORDS SUMMARY | ~2020-05-13 | XMS | Encounter Summary ---
Demographics + + + | Address | [address] | | | [place] [address] | + + + | Home Phone [...] Team Providers + +------+ + | Care Call Center Support Representative Name | Role | Phone | [...] Referral To | | 2016 | | [place] [address] | Gastroenterology | Gastroenterology | | | | [facility] | | | | | | for Health and | | | | | | Healing, [facility] [address] | | | | | | [place], [place] | | | | | | [address] | | | | | | [phone] | | | +--------+ + + + [...]
--- OUTSIDE RECORDS SUMMARY | ~2020-05-13 | XMS | Encounter Summary ---
Demographics + + + | Address | [address] | | | [place] [address] | + + + | Home Phone | | + + + | Preferred Language | Unknown | + + + | Marital Status | | + + + | Gnosticism Affiliation | Unknown | + + + | Race | Black or | + + + | Ethnic Group | Not or | + + + Author + + + | Author | [facility] | | | and [place] | + + + | Organization | [facility] | | | and [place] | + + + | Address | Unknown | + + + | Phone | Unavailable | + + + Care Team Providers + +------+ + | Care Dehydrating Press Operator Name | Role | Phone | + +------+ + | Xiomara Gloria PA-C | PCP | | + +------+ + Reason for Visit + +--------+ + | Reason | Onset | Comments | | | Date | | + +--------+ + | Chest Pain | 11/13/ | | | | 2014 | | + +--------+ + Encounter Details +--------+ + + + + | Date | Type | Department | Care Team | Description | +--------+ + + + + | 11/13/ | Telephone | [facility] | Waylon Castellano MD | Chest Pain | | 2014 | | GASTROENTEROLOGY | [address], [place] | | | | | [address] [place] | [address] [place], [place] | | | | | [address] [place], [place] | [address] | | | | | [address] | | | | | | [phone] | | | +--------+ + + + [...] Telephone Encounter - Dolores Garcia RN - 11/13/2014 1:19 PM PSTPatient calls maritza jean she started having a"squeezing pain in her chest" and she also reports some shortness of b kp. States she feels like there is something in her throat. She calls asking if this coul d be related to reflux. Saw Coni last week and is scheduled for egd 11/28/14. Informed kayden ent that Coni is not in the office but any chest pain should be evaluated at ED dept. She ag franklyn to update us if anything significant is found. documented in this encounter Plan of Treatment +--------+---------+ + + + | Date | Type | Specialty | Care Team | Description | +--------+---------+ + + + | 06/11/ | Office | Neurology | Miguel[place], | | | 2020 | Visit | | [facility] [address] | | | | | [address] [place], | | | | | | [place] [address] | | | | | | [phone] | | | | | | | | +--------+---------+ + + + documented as of this encounter Visit Diagnoses Not on filedocumented in this encounter
[~2020-05-13 10:29] MED LIST changes: +HYDROXYZINE HCL25 MG PO
[2020-05-13] MEDS ORDERED: CROMOLYN S20 MG/1 ML PO (10:43)
[2020-05-13] MEDS ORDERED: PREDNISONE20 MG PO (12:28)
== END 2020-05-13 12:50 | disposition home or self-care (01) ==
LOC: ED 10:29
DX: T78.40XA Allergy, unspecified, initial encounter (principal); K21.9 Gastro-esophageal reflux disease without esophagitis; Z88.2 Allergy status to sulfonamides; Z79.899 Other long term (current) drug therapy
CPT/HCPCS: 80053; 85025; 94640; 96361; 96374; 96375; 99283-25; J0171; J2405; J2930; J7030